=== PATIENT | female | born 1960 | race Caucasian/White ===

== ENCOUNTER 2017-03-21 19:48 | Inpatient (IN) | payer MEDICARE, MEDICAID ==
--- NOTE | 2017-03-21 20:22 | ED Physician Chart ---
ED Chief Complaint/HPI - Patient Information Date Seen:: 03/21/17 Time Seen:: 20:15 Chief Complaint:: REFUSING TO TAKE HER MEDICATIONS, AGGITATION History of Present Illness:: THIS 57 YEAR OLD FEMALE WAS SENT IN FROM [facility]. For evaluation refusal to take her medications agitation, and crying. She has not been running a fever and has had no chills or diaphoresis. She has chronic pain in the neck which was diagnosed as arthritis by MRI. Patient denies suicidal ideation. Patient has a history of hypothyroidism. She takes Synthroid. She has a history of migraine headaches but no migraine at the present time. Denies any chest pain, respiratory distress or cough. No abdominal pain, nausea, vomiting or diarrhea. She has weakness in all 4 extremities but is able to ambulate without assistance of a walker or cane. No history of rash or pain in the extremities. ED Review of Systems - Review of Systems General/Constitutional: No fever, No chills, No weight loss, Weakness, No diaphoresis, No edema, Loss of appetite Skin: No skin lesions, No rash, No bruising Head: No headache, No light-headedness Eyes: No pain, No diplopia, Other (the patient complains that she has blurry vision in both eyes that prevents her from writing. 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 ED Past Medical History - Past Medical History Past Medical History: CVA/TIA, Thyroid disorder, Other (patient states she has had sick strokes.) Social History: Non Smoker, No Alcohol, No Drug Use, Single, Care Facility ( therapeutic abortions. Patient has had lipo suction suction.. No other surgical procedures.) Family Medical History - Family Member Mother History Unknown: Yes ED Physical Exam - Physical Examination General/Constitutional: Awake, No distress, Non-toxic appearing, Ambulatory Other Gen/Cons comments:: moderately obese. Oriented 3 but confused. Head: Atraumatic Eyes: Lids, conjuctiva normal, EOMI Other Eyes comments:: The right pupil was pinpoint and the left pupil was only slightly larger. There was no increased tone of the eyeballs to palpation. EOMs intact without nystagmus. The sclera were anicteric. Skin: No rash, No skin lesions, No ecchymosis, Well hydrated, No lymphadenopathy ENMT: External ears, nose nl, Nasal exam nl, Lips, teeth, gums nl, Oropharynx nl , Tonsils nl Neck: No JVD, No mass Other Neck comments:: No surgical scars. Respiratory: Nl effort/Exclusion, Clear to Auscultation, No Wheeze/Rhonchi/Rales Cardio Vascular: RRR, No murmur, gallop, rubs, NL S1 S2 Other Cardio Vascular comments:: Good pulses in all 4 extremities. Trace pretibial edema in both lower extremities. GI: No tenderness/rebounding/guarding, No organomegaly, No hernia, Normal BS's, Nondistended, No mass/bruits, No McBurney tenderness Other GI comments:: Rectal examination deferred at my discretion. : No CVA tenderness Extremities: No tenderness or effusion, Full ROM (decreased motor strength diffusely. Trace pretibial edema in both lower extremities.) Neuro/Psych: Normal sensory exam, Normal motor strength Other Neuro/Psych comments:: Walks with wide-based gait very slowly. No focal neurologic deficit. Misc: No paraspinal tenderness Other Misc comments:: The patient has no spinal tenderness of her back but is sitting at a crooked angle and I'm unable to determine if she has scoliosis. ED Labs/Radiology/EKG Results - Lab Results Results: Laboratory Tests 03/21/17 03/21/17 03/21/17 20:15 20:15 20:28 WBC 8.1 RBC 4.02 Hgb 13.7 Hct 39.0 L MCV 97.0 MCH 34.0 H MCHC Differential 35.0 RDW 13.1 Plt Count 178 MPV 9.3 Neutrophils % 60.1 Lymphocytes % 29.3 Monocytes % 9.4 Eosinophils % 0.6 Basophils % 0.6 Sodium Potassium Chloride Carbon Dioxide Anion Gap BUN Creatinine Est GFR ( Amer) Est GFR (Non-Af Amer) BUN/Creatinine Ratio Glucose Calcium Total Bilirubin AST ALT Alkaline Phosphatase Total Protein Albumin Globulin Albumin/Globulin Ratio Urine Source CLEAN C Urine Color YELLOW Urine Clarity CLEAR Urine pH 5.5 Ur Specific [place] >= 1.030 Urine Protein NEGATIVE Urine Glucose (UA) 100 H Urine Ketones NEGATIVE Urine Blood NEGATIVE Urine Nitrate NEGATIVE Urine Bilirubin NEGATIVE Urine Urobilinogen 0.2 Ur Leukocyte Esterase NEGATIVE Urine RBC 0-1 Urine WBC 0-2 Ur Epithelial Cells RARE Urine Bacteria OCCASIONAL Urine Opiates Screen NEGATIVE Urine Methadone Screen NEGATIVE Ur Barbiturates Screen NEGATIVE Ur Tricyclics Screen NEGATIVE Ur Phencyclidine Scrn NEGATIVE Amphetamines Screen NEGATIVE U Methamphetamines Scrn NEGATIVE U Benzodiazepines Scrn NEGATIVE U Cocaine Metab Screen NEGATIVE U Cannabinoids Screen NEGATIVE 03/21/17 20:28 WBC RBC Hgb Hct MCV MCH MCHC Differential RDW Plt Count MPV Neutrophils % Lymphocytes % Monocytes % Eosinophils % Basophils % Sodium 137 Potassium 4.0 Chloride 107 Carbon Dioxide 26.5 Anion Gap 7.5 BUN 16 Creatinine 0.6 Est GFR ( Amer) > 60.0 Est GFR (Non-Af Amer) > 60.0 BUN/Creatinine Ratio 26.7 Glucose 113 H Calcium 9.5 Total Bilirubin 0.6 AST 11 L ALT 15 Alkaline Phosphatase 64 Total Protein 6.7 Albumin 4.0 Globulin 2.7 Albumin/Globulin Ratio 1.5 Urine Source Urine Color Urine Clarity Urine pH Ur Specific [place] Urine Protein Urine Glucose (UA) Urine Ketones Urine Blood Urine Nitrate Urine Bilirubin Urine Urobilinogen Ur Leukocyte Esterase Urine RBC Urine WBC Ur Epithelial Cells Urine Bacteria Urine Opiates Screen Urine Methadone Screen Ur Barbiturates Screen Ur Tricyclics Screen Ur Phencyclidine Scrn Amphetamines Screen U Methamphetamines Scrn U Benzodiazepines Scrn U Cocaine Metab Screen U Cannabinoids Screen - Radiology Results Results: SINGLE VIEW AP CXR PORTABLE: HEART IS UPPER LIMIT NORMAL. NO CHF. NO AREAS OF PULMONARY INFILTRATE OR CONSOLIDATION. NO PNEUMOTHORAX. IMPRESSION: NO ACUTE CARDIOPULMONARY FINDINGS. - EKG Interpretations EKG Time:: 20:32 Rate & Rhythm: NORMAL SINUS RHYTHM AT RATE OF 82. NO ECTOPY. [place]: AXIS IS NORMAL. Intervals: QRS duration is normal. The QT interval is normal. Comments:: Low voltage in the frontal plane no ST segment elevation or depression. Nonspecific flattening of T waves. Impression: Borderline normal EKG. ED Assessment - Assessment General Assessment: CASE MIKE: THIS 57 YEAR OLD FEMALE WAS REFERRED TO THE ER FOR EVALUATION OF BEHAVIOR DISORDER, NOT TAKING HER MEDICATIONS. SHE WAS AWAKE EMERGENCY DEPARTMENT. CALL ITAL SIGNS WERE EITHER NORMAL OR NOT CLINICLY IMPORTANT. SHE RESPONDED VERY SLOWLY AND VAGUELY TO QUESTIONS. THERE WAS NO VISIBLE OR PALPABLE HEAD TRAUMA. PUPILS WERE VERY SMALL. THE CARDIOPULMONARY EXAM WAS UNREMARKABLE. THERE WAS ON INDICATION OF SEPSIS. PT WAS ABLE TO WALK UNASSISTED BUT IT WAS VERY SLOW AND WITH WIDE BASE. LAB STUDIES SHOWED NORMAL CBC, ELECTROLYTES, MILD HYPERGLYCEMIA. THE UA WAS NEG FOR UTI. THE CXR SHOWED NO ACUTE FINDINGS. THE CASE WAS DISCUSSED WITH DR. LAGUNAS AND THE PATIENT WILL BE ADMITTED FOR FAILURE TO THRIVE. MDM DDX FOR BEHAVIORAL ABNORMALITIES: NOT SEPSIS BASED ON LAB STUDIES. NOT HYPOGLYCEMIA BASED ON SERUM GLUCOSE OF 113. NOT ELECTROLYTE ABNORMALITIES BASED ON LAB STUDIES ALL WITHIN THE NORMAL RANGE. NOT UTI BASED ON NORMAL UTI AND RENAL FUNCTION STUDIES. NOT HEPATIC ENCEPHALOPATHY BASED ON NORMAL LIVER FUNCTION STUDIES. NOT TRAUMATIC BRAIN INJURIES BASED ON PT'S HISTORY AND PHYSICAL EXAM. ED Septic Shock - . Is Septic Shock (SBP<90, OR Lactate>4 mmol\L) present?: No ED Reassessment (Disposition) - Reassessment Reassessment Condition:: Unchanged - Diagnosis Diagnosis:: FAILURE TO THRIVE, AGITATION, HYPOTHYROIDISM, GENERALIZED WEAKNESS, HISTORY OF MULTIPLE PRIOR CVA'S. - Aftercare/Follow up Instructions Aftercare/Follow-Up Instructions:: Counseled pt regarding lab results/diagnosis & need follow up - Patient Disposition Discharge/Transfer:: Acute Care w/in this hosp Accepting Physician:: Dr. Sebastian. ED Discharge Plan - Patient Disposition Admit/Discharge/Transfer: Acute Care w/in this hosp
[2017-03-21 20:37] LABS: % BASOPHILS 0.6 % (0.0-2.0); % EOSINOPHILS 0.6 % (0.0-5.0); % LYMPHOCYTES 29.3 % (20.0-50.0); % MONOCYTES 9.4 % (2.0-10.0); % NEUTROPHILS 60.1 % (40.0-80.0); HEMOGLOBIN 13.7 gm/dL (12-16); MEAN PLATELET VOLUME 9.3 fl; NEUTROPHILE ABSOLUTE 4.9 Th/cmm (1.8-8.0); PLATELET COUNT 178 Th/cmm (150-400); RED BLOOD COUNT 4.02 Mil/cmm (3.80-5.10); RED CELL DISTRIBUTION WIDTH 13.1 % (11.5-20.0); WHITE BLOOD COUNT 8.1 Th/cmm (4.8-10.8)
[2017-03-21 20:43] LABS: URINE BILIRUBIN NEGATIVE (NEGATIVE); URINE BLOOD NEGATIVE (NEGATIVE); URINE GLUCOSE (UA) 100 mg/dL (NEGATIVE); URINE KETONE NEGATIVE (NEGATIVE); URINE PH 5.5 (4.6 - 8.0); URINE PROTEIN NEGATIVE (NEGATIVE); URINE UROBILINOGEN 0.2 E.U./dL (0.2 - 1.0)
[2017-03-21 20:49] LABS: URINE BACTERIA OCCASIONAL /hpf (NONE SEEN); URINE COLOR YELLOW; URINE EPITHELIAL CELLS RARE /lpf (FEW); URINE RBC 0-1 /hpf (0-5); URINE WBC 0-2 /hpf (0-5)
[2017-03-21 20:51] LABS: AMPHETAMINE URINE NEGATIVE (NEGATIVE); BARBITURATES URINE NEGATIVE (NEGATIVE)
[2017-03-21 20:52] LABS: ALB/GLOB RATIO 1.5 (1.0-1.8); ALKALINE PHOSPHATASE 64 U/L (34-104); ANION GAP 7.5 (7.0-16.0); BILIRUBIN,TOTAL 0.6 mg/dL (0.3-1.0); BUN - UREA NITROGEN 16 mg/dL (7-25); BUN/CREATININE RATIO 26.7; CALCIUM SERUM 9.5 mg/dL (8.6-10.3); CARBON DIOXIDE 26.5 mEq/L (21.0-31.0); CHLORIDE 107 mEq/L (98-107); CREATININE - SERUM 0.6 mg/dL (0.6-1.2); GLUCOSE 113 mg/dL (70-105); SGOT 11 U/L (13-39); SGPT/ALT 15 U/L (7-52); SODIUM SERUM 137 mEq/L (136-145)
[2017-03-21 20:52] LABS: METHADONE URINE NEGATIVE (NEGATIVE)
[2017-03-21] MEDS ORDERED: Magnesium Hydroxide (MOM) 30 mL UDC PO PRN (23:38)
[2017-03-21] MEDS ORDERED: Maalox 30 mL Cup PO PRN (23:39)
[2017-03-21] MEDS ORDERED: Ipratropium Neb 0.5 mg/2.5 mL UD IH PRN (23:39)
[2017-03-21] MEDS ORDERED: Albuterol Nebulizer 2.5mg/3mL HHN PRN (23:39)
[2017-03-21] MEDS ORDERED: guaiFENesin 200 MG/10 ML UDC PO PRN (23:39)
[2017-03-22] MEDS: D5-0.9%NS 1,000 ML IV SCH ×2 (00:30→15:10)
[2017-03-22 01:38] VITALS: BP 122/62
[2017-03-22] MEDS: Levothyroxine 0.088 Mg Tab PO SCH (06:58)
--- NOTE | 2017-03-22 08:54 | Diagnostic Imaging Report ---
CHEST X-RAY: AP view INDICATION: Altered COMPARISON: None FINDINGS: Mild chronic changes are noted. There is no focal consolidation or pleural effusions The heart is normal in size. The osseous structures demonstrate no acute abnormalities. IMPRESSION: No focal airspace consolidation identified.
--- NOTE | 2017-03-22 22:05 | History & Physical ---
ADMIT DATE: 03/22/2017 CHIEF COMPLAINT: Not eating or drinking, not taking medications. HISTORY OF PRESENT ILLNESS: This is a 57-year-old female with history of schizoaffective disorder, obesity, hypothyroidism, was admitted from nursing facility secondary to not taking her medication or drinking and refusing to eat as well. The patient was evaluated in the ER and admitted for further management. PAST MEDICAL HISTORY: As mentioned in history of present illness. PAST SURGICAL HISTORY: Status post ____. ALLERGIES: FLAGYL. MEDICATIONS: The patient is on Risperdal, trazodone, Synthroid, Colace and Tylenol. FAMILY HISTORY: Denies diabetes or coronary artery disease. SOCIAL HISTORY: Nonsmoker, nondrinker, no intravenous drug use. The patient used to work in a [employer] firm, single, no children. REVIEW OF SYSTEMS: GENERAL: The patient complains of not feeling well, complains of being weak. HEENT: No blurred vision or pain. LUNGS: Negative for COPD or asthma. HEART: The patient denies hypertension or coronary artery disease. ABDOMEN: The patient with some nausea, no vomiting. Some abdominal discomfort. GENITOURINARY: The patient denies increased frequency or dysuria. NEUROLOGIC: No headache or seizure. PSYCHIATRIC: Stable. PHYSICAL EXAMINATION: VITAL SIGNS: Blood pressure 111/66, respirations 18, pulse 87, temperature is 97.5. GENERAL: Middle-aged female, mildly obese. NECK: Supple. No mass. LUNGS: Equal breath sounds, few rhonchi. HEART: Regular rate and rhythm without appreciable murmurs. ABDOMEN: Soft, globular. EXTREMITIES: Positive excoriations. NEUROLOGIC: Limited. LABORATORY DATA: WBC 8.1, hemoglobin 13, platelets 178. Sodium 137, potassium 4.0, BUN 16, creatinine 0.6, blood sugar 118, UA glucose 100. ASSESSMENT AND PLAN: Altered level of consciousness, increasing agitation, ____ hypothyroidism, obesity, schizoaffective disorder. We will continue IV hydration. We will adjust the patient's psychotropic medications and continue the Synthroid. We will check the patient's thyroid panel as well. We will refer the patient to Psychiatry. We will place her on fall precaution. Continue to monitor the patient closely. JOB# [id number]
[2017-03-23] MEDS: Levothyroxine 0.088 Mg Tab PO SCH ×2 (09:32→09:43)
--- NOTE | 2017-03-23 10:13 | Internal Medicine Prog Note ---
Internal Medicine Subjective - Subjective Service Date: 03/23/17 Patient seen and examined:: with staff Patient is:: awake, agitated, confused Per staff patient has:: no adverse event, tolerating meds Internal Medicine Objective - Results Result Diagrams: 03/21/17 20:03/21/17 20: Recent Labs: Laboratory Last Values WBC 8.1 Th/cmm (4.8-10.8) 03/21/17 20: RBC 4.02 Mil/cmm (3.80-5.10) 03/21/17 20: Hgb 13.7 gm/dL (12-16) 03/21/17 20: Hct 39.0 % (41.0-60) L 03/21/17 20: MCV 97.0 fl (81-100) 03/21/17 20: MCH 34.0 pg (27.0-31.0) H 03/21/17 20: MCHC Differential 35.0 pg (28.0-36.0) 03/21/17 20: RDW 13.1 % (11.5-20.0) 03/21/17 20: Plt Count 178 Th/cmm (150-400) 03/21/17 20: MPV 9.3 fl 03/21/17 20: Neutrophils % 60.1 % (40.0-80.0) 03/21/17 20: Lymphocytes % 29.3 % (20.0-50.0) 03/21/17 20: Monocytes % 9.4 % (2.0-10.0) 03/21/17 20: Eosinophils % 0.6 % (0.0-5.0) 03/21/17 20: Basophils % 0.6 % (0.0-2.0) 03/21/17 20: Sodium 137 mEq/L (136-145) 03/21/17 20: Potassium 4.0 mEq/L (3.5-5.1) 03/21/17 20: Chloride 107 mEq/L (98-107) 03/21/17 20: Carbon Dioxide 26.5 mEq/L (21.0-31.0) 03/21/17 20: Anion Gap 7.5 (7.0-16.0) 03/21/17 20:28 BUN 16 mg/dL (7-25) 03/21/17 20: Creatinine 0.6 mg/dL (0.6-1.2) 03/21/17 20: Est GFR ( Amer) > 60.0 ml/min (>90) 03/21/17 20: Est GFR (Non-Af Amer) > 60.0 ml/min 03/21/17 20: BUN/Creatinine Ratio 26.7 03/21/17 20: Glucose 113 mg/dL (70-105) H 03/21/17 20: POC Glucose 87 MG/DL (70 - 105) 03/22/17 05:32 Calcium 9.5 mg/dL (8.6-10.3) 03/21/17 20: Total Bilirubin 0.6 mg/dL (0.3-1.0) 03/21/17 20: AST 11 U/L (13-39) L 03/21/17 20: ALT 15 U/L (7-52) 03/21/17 20:28 Alkaline Phosphatase 64 U/L (34-104) 03/21/17 20:28 Total Protein 6.7 gm/dL (6.0-8.3) 03/21/17 20: Albumin 4.0 gm/dL (3.7-5.3) 03/21/17 20: Globulin 2.7 gm/dL 03/21/17 20: Albumin/Globulin Ratio 1.5 (1.0-1.8) 03/21/17 20:28 Urine Source CLEAN C 03/21/17 20:15 Urine Color YELLOW 03/21/17 20:15 Urine Clarity CLEAR (CLEAR) 03/21/17 20:15 Urine pH 5.5 (4.6 - 8.0) 03/21/17 20:15 Ur Specific [place] >= 1.030 (1.005-1.030) 03/21/17 20:15 Urine Protein NEGATIVE mg/dL (NEGATIVE) 03/21/17 20:15 Urine Glucose (UA) 100 mg/dL (NEGATIVE) H 03/21/17 20:15 Urine Ketones NEGATIVE mg/dL (NEGATIVE) 03/21/17 20: Urine Blood NEGATIVE (NEGATIVE) 03/21/17 20:15 Urine Nitrate NEGATIVE (NEGATIVE) 03/21/17 20:15 Urine Bilirubin NEGATIVE (NEGATIVE) 03/21/17 20:15 Urine Urobilinogen 0.2 E.U./dL (0.2 - 1.0) 03/21/17 20:15 Ur Leukocyte Esterase NEGATIVE (NEGATIVE) 03/21/17 20:15 Urine RBC 0-1 /hpf (0-5) 03/21/17 20:15 Urine WBC 0-2 /hpf (0-5) 03/21/17 20:15 Ur Epithelial Cells RARE /lpf (FEW) 03/21/17 20:15 Urine Bacteria OCCASIONAL /hpf (NONE SEEN) 03/21/17 20:15 Urine Opiates Screen NEGATIVE (NEGATIVE) 03/21/17 20:15 Urine Methadone Screen NEGATIVE (NEGATIVE) 03/21/17 20:15 Ur Barbiturates Screen NEGATIVE (NEGATIVE) 03/21/17 20:15 Ur Tricyclics Screen NEGATIVE (NEGATIVE) 03/21/17 20:15 Ur Phencyclidine Scrn NEGATIVE (NEGATIVE) 03/21/17 20:15 Amphetamines Screen NEGATIVE (NEGATIVE) 03/21/17 20:15 U Methamphetamines Scrn NEGATIVE (NEGATIVE) 03/21/17 20:15 U Benzodiazepines Scrn NEGATIVE (NEGATIVE) 03/21/17 20:15 U Cocaine Metab Screen NEGATIVE (NEGATIVE) 03/21/17 20:15 U Cannabinoids Screen NEGATIVE (NEGATIVE) 03/21/17 20:15 - Physical Exam Vitals and I&O: Vital Signs Temp 98.4 F 03/23/17 00:00 Pulse 76 03/23/17 08:04 Resp 20 03/23/17 08:04 BP 130/68 03/23/17 00:00 Pulse Ox 96 03/23/17 08:04 Intake & Output 03/22/17 03/23/17 03/23/17 18:59 06:59 18:59 Intake Total 1000 Balance 1000 Weight (lbs) 157 lb Intake: Intake, IV Amount 1000 D5-0.9%Ns 1,000 ml @ 80 1000 mls/hr IV .[id number] [facility] Rx #:[id number] Active Medications: Current Medications Acetaminophen (Tylenol) 325 mg PO Q4HR PRN PRN Reason: Pain or Fever >101 Stop: 05/20/17 23:37 Last Admin: 03/22/17 06:58 Dose: 325 mg Al Hydrox/Mg Hydrox/Simethicone (Maalox) 30 ml PO Q6H PRN PRN Reason: Dyspepsia Stop: 05/20/17 23:38 Last Admin: 03/22/17 08:15 Dose: 30 ml Albuterol Sulfate (Albuterol 2.5mg/3ml Neb Ud) 2.5 mg HHN Q2HRT PRN PRN Reason: Shortness of Breath or Wheeze Stop: 05/20/17 23:38 Docusate Sodium (Colace) 250 mg PO DAILY [facility] Stop: 05/21/17 08:59 Last Admin: 03/23/17 09:43 Dose: Not Given Guaifenesin (Robitussin) 200 mg PO Q4HR PRN PRN Reason: Cough or Congestion Stop: 05/20/17 23:38 Heparin Sodium (Porcine) (Heparin) 5,000 units SUBQ Q12HR [facility] Stop: 05/21/17 08:59 Last Admin: 03/23/17 09:42 Dose: Not Given Dextrose/Sodium Chloride (D5-0.9%Ns) 1,000 mls @ 80 mls/hr IV .[id number] [facility] Stop: 05/20/17 23:44 Last Admin: 03/22/17 15:10 Dose: 80 mls/hr Ipratropium [place] (Atrovent Neb 0.5mg/2.5ml) 0.5 mg IH Q2HRT PRN PRN Reason: Shortness of Breath or Wheeze Stop: 05/20/17 23:38 Levothyroxine Sodium (Synthroid) 0.088 mg PO QDAC [facility] Stop: 05/21/17 07:29 Last Admin: 03/23/17 09:43 Dose: Not Given Magnesium Hydroxide (Milk Of Magnesia) 30 ml PO DAILY PRN PRN Reason: Constipation Stop: 05/20/17 23:37 Nitroglycerin (Nitrostat) 0.4 mg SL Q5MIN PRN PRN Reason: Chest Pain Stop: 05/20/17 23:38 Ondansetron HCl (Zofran) 4 mg IV Q8H PRN PRN Reason: Nausea / Vomiting Stop: 05/20/17 23:38 Risperidone (Risperdal) 3 mg PO BID [facility] PRN Reason: Protocol Stop: 05/21/17 08:59 Last Admin: 03/23/17 09:42 Dose: Not Given Trazodone HCl (Desyrel) 150 mg PO HS CRISTINA Stop: 05/21/17 20:59 Last Admin: 03/22/17 21:36 Dose: Not Given General: alert HEENT: NC/AT, PERRLA Neck: Supple Lungs: CTAB Abdomen: soft, non-tender, non-distended, positive bowel sound Extremities: excoriation Neurological: alert, unable to follow command, other (confused) Internal Medicine Assmt/Plan - Assessment Assessment: ALOC INCREASE IN AGITATION HYPOTHYROIDISM OBESITY SCHIZOAFFECTIVE DISORDER - Plan Plan: continue ivf for hydration psych follow up fall precautions follow up labs in am if bed available in [facility] ok to nupur
[2017-03-23 16:07] LABS: % BASOPHILS 0.1 % (0.0-2.0); % EOSINOPHILS 0.3 % (0.0-5.0); % MONOCYTES 6.9 % (2.0-10.0); % NEUTROPHILS 75.7 % (40.0-80.0); HEMATOCRIT 41.9 % (41.0-60); MEAN CORPUSCULAR HEMOGLOBIN 32.7 pg (27.0-31.0); MEAN CORPUSCULAR HGB CONC 33.4 pg (28.0-36.0); MEAN PLATELET VOLUME 9.1 fl; NEUTROPHILE ABSOLUTE 8.8 Th/cmm (1.8-8.0); PLATELET COUNT 156 Th/cmm (150-400); RED BLOOD COUNT 4.28 Mil/cmm (3.80-5.10); RED CELL DISTRIBUTION WIDTH 13.1 % (11.5-20.0)
[2017-03-23 16:12] LABS: WHITE BLOOD COUNT 11.6 Th/cmm (4.8-10.8)
[2017-03-23 16:18] LABS: ANION GAP 8.8 (7.0-16.0); BUN - UREA NITROGEN 9 mg/dL (7-25); CALCIUM SERUM 9.5 mg/dL (8.6-10.3); CARBON DIOXIDE 28.5 mEq/L (21.0-31.0); CHLORIDE 109 mEq/L (98-107); CREATININE - SERUM 0.6 mg/dL (0.6-1.2); GLUCOSE 116 mg/dL (70-105); POTASSIUM SERUM 4.3 mEq/L (3.5-5.1); SODIUM SERUM 142 mEq/L (136-145)
[2017-03-23 17:02] LABS: TSH 0.73 uIU/ml (0.34-5.60)
== END 2017-03-23 14:14 | DRG 641 ==
LOC: ER 19:48 → MSI 22:13
PROVIDERS: ADMIT Internal Medicine; ATTEND Internal Medicine
DX: R62.7 Adult failure to thrive (principal); F25.9 Schizoaffective disorder, unspecified; R40.4 Transient alteration of awareness; R45.1 Restlessness and agitation; E03.9 Hypothyroidism, unspecified; E66.9 Obesity, unspecified; G89.29 Other chronic pain; M54.9 Dorsalgia, unspecified; M19.91 Primary osteoarthritis, unspecified site; R53.1 Weakness; F29 Unspecified psychosis not due to a substance or known physiological condition; Z68.27 Body mass index [BMI] 27.0-27.9, adult; Z86.73 Personal history of transient ischemic attack (TIA), and cerebral infarction without residual deficits
CPT/HCPCS: 36415-UA; 71010-TC; 80048-TC; 80053-TC; 80307; 81001-TC; 82140-TC; 82948-90; 84443-TC; 85025-TC; 93005; 94760; J1644; J7042; Z7610

== ENCOUNTER 2017-05-26 20:07 | Inpatient (IN) | payer MEDICAID, MEDICARE ==
--- NOTE | 2017-05-26 20:53 | ED Physician Chart ---
ED Chief Complaint/HPI - Patient Information Date Seen:: 05/26/17 Time Seen:: 20:30 Chief Complaint:: Aggressiveness History of Present Illness:: 57 yo female was brought by bls from SNF to ER for evaluation of aggressive behavior towards staff. The patient denied any thought of hurting herself or others at ER. Allergies:: Allergies Allergy/AdvReac Type Severity Reaction Status Date / Time metronidazole [From Flagyl] Allergy Verified 03/21/17 20:20 Vitals:: Vital Signs - 8 hr 05/26/17 20:15 Temp 98.2 F HR 84 RR 18 BP 132/68 O2 Sat % 95 ED Review of Systems - Review of Systems General/Constitutional: No fever, No chills, Weakness Skin: No skin lesions Head: No headache Eyes: No pain ENT: No nasal drainage Neck: No neck pain Cardio Vascular: No chest pain Pulmonary: No SOB GI: No nausea, No vomiting Musculoskeletal: No bone or joint pain ED Past Medical History - Past Medical History Past Medical History: Thyroid disorder (hypothyroidism), Other (UTI, generalized weakness) Social History: Non Smoker, No Alcohol, No Drug Use Psychiatricy History: Other (Schizoaffective) Family Medical History - Family Member Mother History Unknown: Yes ED Physical Exam - Physical Examination General/Constitutional: Awake, Alert Head: Atraumatic Eyes: PERRL Skin: No skin lesions ENMT: Nasal exam nl Neck: No nuchal rigidity Respiratory: No Wheeze/Rhonchi/Rales Cardio Vascular: RRR, No murmur, gallop, rubs, NL S1 S2 GI: No tenderness/rebounding/guarding : No discharge Extremities: normal strength in all extremities Neuro/Psych: No focal deficits ED Assessment - Assessment General Assessment: Psychosis UTI Assessment/Comments:: CBC, CMP, UA EKG Clear for geropsych admit Nitrofurantoin ED Septic Shock - . Is Septic Shock (SBP<90, OR Lactate>4 mmol\L) present?: No - <6hrs of presentation: Vital Signs: Vital Signs - 8 hr 05/26/17 20:15 Temp 98.2 F HR 84 RR 18 BP 132/68 O2 Sat % 95 ED Reassessment (Disposition) - Reassessment Reassessment Condition:: Unchanged - Patient Disposition Discharge/Transfer:: [place] w/in this hosp Admitting Medical Physician:: Tali Mcgraw ED Discharge Plan - Patient Disposition Admit/Discharge/Transfer: Other Care w/in this hosp
[2017-05-26 21:11] LABS: % BASOPHILS 0.1 % (0.0-2.0); % EOSINOPHILS 0.9 % (0.0-5.0); % LYMPHOCYTES 23.9 % (20.0-50.0); % MONOCYTES 10.8 % (2.0-10.0); % NEUTROPHILS 64.3 % (40.0-80.0); EOSINOPHILE ABSOLUTE 0.1 Th/cmm (0.1-0.4); HEMATOCRIT 39.2 % (41.0-60); HEMOGLOBIN 13.2 gm/dL (12-16); LYMPHOCYTE ABSOLUTE 2.2 Th/cmm (1.5-3.0); MEAN CELL VOLUME 98.3 fl (81-100); MEAN CORPUSCULAR HGB CONC 33.6 pg (28.0-36.0); NEUTROPHILE ABSOLUTE 5.8 Th/cmm (1.8-8.0); PLATELET COUNT 171 Th/cmm (150-400); RED BLOOD COUNT 3.99 Mil/cmm (3.80-5.10); RED CELL DISTRIBUTION WIDTH 13.2 % (11.5-20.0)
[2017-05-26 21:12] LABS: WHITE BLOOD COUNT 9.1 Th/cmm (4.8-10.8)
[2017-05-26 21:17] LABS: ANION GAP 11.7 (7.0-16.0); BUN - UREA NITROGEN 10 mg/dL (7-25); CALCIUM SERUM 8.7 mg/dL (8.6-10.3); CARBON DIOXIDE 21.2 mEq/L (21.0-31.0); CHLORIDE 110 mEq/L (98-107); CREATININE - SERUM 0.6 mg/dL (0.6-1.2); GFR AFRICAN-AMERICAN > 60.0 ml/min (>90); GFR NON AFRICAN-AMERICAN > 60.0 ml/min; GLUCOSE 109 mg/dL (70-105); POTASSIUM SERUM 3.9 mEq/L (3.5-5.1); SODIUM SERUM 139 mEq/L (136-145)
[2017-05-26 22:27] VITALS: BP 123/65
[2017-05-26] MEDS ORDERED: Maalox 30 mL Cup PO PRN (22:27)
[2017-05-27 00:15] LABS: URINE MICROSCOPIC INDICATED? YES; URINE SOURCE RANDOM
[2017-05-27 00:18] LABS: URINE BILIRUBIN NEGATIVE (NEGATIVE); URINE BLOOD NEGATIVE (NEGATIVE); URINE GLUCOSE (UA) NEGATIVE (NEGATIVE); URINE KETONE TRACE mg/dL (NEGATIVE); URINE LEUKOCYTE ESTERASE SMALL (NEGATIVE); URINE NITRATE NEGATIVE (NEGATIVE); URINE PROTEIN NEGATIVE (NEGATIVE); URINE UROBILINOGEN 0.2 E.U./dL (0.2 - 1.0)
[2017-05-27 00:19] LABS: URINE CLARITY HAZY (CLEAR); URINE COLOR YELLOW
[2017-05-27 00:21] LABS: URINE RBC 0-2 /hpf (0-5)
[2017-05-27 00:22] LABS: URINE BACTERIA MODERATE /hpf (NONE SEEN); URINE EPITHELIAL CELLS MODERATE /lpf (FEW)
--- NOTE | 2017-05-27 09:49 | Psychosocial Evaluation ---
DATE OF SERVICE: 05/26/2017 IDENTIFYING INFORMATION: The patient is a 57-year-old female. CHIEF COMPLAINT: "They are trying to kill me." HISTORY OF PRESENT ILLNESS: This is a well-known case to me as I have seen her and I have been following her at [facility]. She has diagnosed with schizoaffective disorder. The patient also has a history of being conserved. Apparently, she has been paranoid. She has been acting psychotic. She was crying uncontrollably and I talked to her, though she was eating, unable to participate in a meaningful conversation, feeling fearful and scared and asked the staff to move her to a room closer to the nurses'. The patient was unable to answer questions regarding sleep and appetite. She has been on Risperdal 2 mg twice a day and Depakote 250 mg twice a day and also she is on Ativan and trazodone. PAST PSYCHIATRIC HISTORY: Multiple prior admissions to different facility and for this [facility] and [facility] for psychotic symptoms. The patient was actually being conserved in the past, but that conservatorship and it was not renewed. MEDICAL HISTORY: Deferred to the medical doctor. MEDICATIONS: The patient is allergic to metronidazole. FAMILY AND SOCIAL HISTORY: The patient has been staying at [facility]. Unable to give me further information. She reports she has no children. She is single, never . She was unable to give me any information. Her old chart was not available at the moment when I was dictating this. MENTAL STATUS EXAMINATION: The patient was appropriately dressed, not very well groomed. She was crying, though she was eating at the same time. She was able to tell me the date, but she was not sure of the exact year. She was very paranoid. She denies any auditory or visual hallucination. She denies any intent to harm anyone. She denies any intent to harm herself, but she was very psychotic and paranoid. I was unable to test her memory because of her psychosis and crying. Unable to concentrate enough to carry on a conversation. She denies that she plans to harm herself or anybody. I am not sure how is her sleep or appetite. She did not tell me that she was feeding herself. Her insight and judgment is impaired. IMPRESSION: AXIS I: Schizoaffective disorder, bipolar type. MEDICAL DIAGNOSES: We will defer to the medical doctor. Her assets, she is accepting treatment. Negative poor coping skills. INITIAL TREATMENT PLAN: The patient will be started back on her medication. I will do group therapy, milieu therapy, and individual therapy. ESTIMATED LENGTH OF STAY: 3-7 days. DISCHARGE CRITERIA: Decreasing psychosis, agitation, paranoia. After discharge, outpatient treatment. JOB# [id number]
[2017-05-27] MEDS ORDERED: Maalox 30 mL Cup PO PRN (13:15)
[2017-05-27] MEDS: Hydrocodone/APAP 5mg/325mg Tab PO PRN ×2 (14:53→21:40)
--- NOTE | 2017-05-27 15:17 | Internal Medicine Prog Note ---
Internal Medicine Subjective - Subjective Service Date: 05/27/17 ([facility] dictated [id number]) Internal Medicine Objective - Results Result Diagrams: 05/26/17 20:51 05/26/17 20:51 Recent Labs: Laboratory Last Values WBC 9.1 Th/cmm (4.8-10.8) D 05/26/17 20:51 RBC 3.99 Mil/cmm (3.80-5.10) 05/26/17 20:51 Hgb 13.2 gm/dL (12-16) 05/26/17 20:51 Hct 39.2 % (41.0-60) L 05/26/17 20:51 MCV 98.3 fl (81-100) 05/26/17 20:51 MCH 33.0 pg (27.0-31.0) H 05/26/17 20:51 MCHC Differential 33.6 pg (28.0-36.0) 05/26/17 20:51 RDW 13.2 % (11.5-20.0) 05/26/17 20:51 Plt Count 171 Th/cmm (150-400) 05/26/17 20:51 MPV 9.0 fl 05/26/17 20:51 Neutrophils % 64.3 % (40.0-80.0) 05/26/17 20:51 Lymphocytes % 23.9 % (20.0-50.0) 05/26/17 20:51 Monocytes % 10.8 % (2.0-10.0) H 05/26/17 20:51 Eosinophils % 0.9 % (0.0-5.0) 05/26/17 20:51 Basophils % 0.1 % (0.0-2.0) 05/26/17 20:51 Sodium 139 mEq/L (136-145) 05/26/17 20:51 Potassium 3.9 mEq/L (3.5-5.1) 05/26/17 20:51 Chloride 110 mEq/L (98-107) H 05/26/17 20:51 Carbon Dioxide 21.2 mEq/L (21.0-31.0) 05/26/17 20:51 Anion Gap 11.7 (7.0-16.0) 05/26/17 20:51 BUN 10 mg/dL (7-25) 05/26/17 20:51 Creatinine 0.6 mg/dL (0.6-1.2) 05/26/17 20:51 Est GFR ( Amer) > 60.0 ml/min (>90) 05/26/17 20:51 Est GFR (Non-Af Amer) > 60.0 ml/min 05/26/17 20:51 BUN/Creatinine Ratio 16.7 05/26/17 20:51 Glucose 109 mg/dL (70-105) H 05/26/17 20:51 Calcium 8.7 mg/dL (8.6-10.3) 05/26/17 20:51 TSH 3.85 uIU/ml (0.34-5.60) 05/26/17 20:51 Urine Source RANDOM 05/26/17 23:55 Urine Color YELLOW 05/26/17 23:55 Urine Clarity HAZY (CLEAR) 05/26/17 23:55 Urine pH 7.0 (4.6 - 8.0) 05/26/17 23:55 Ur Specific [place] 1.020 (1.005-1.030) 05/26/17 23:55 Urine Protein NEGATIVE mg/dL (NEGATIVE) 05/26/17 23:55 Urine Glucose (UA) NEGATIVE mg/dL (NEGATIVE) 05/26/17 23:55 Urine Ketones TRACE mg/dL (NEGATIVE) 05/26/17 23:55 Urine Blood NEGATIVE (NEGATIVE) 05/26/17 23:55 Urine Nitrate NEGATIVE (NEGATIVE) 05/26/17 23:55 Urine Bilirubin NEGATIVE (NEGATIVE) 05/26/17 23:55 Urine Urobilinogen 0.2 E.U./dL (0.2 - 1.0) 05/26/17 23:55 Ur Leukocyte Esterase SMALL (NEGATIVE) H 05/26/17 23:55 Urine RBC 0-2 /hpf (0-5) 05/26/17 23:55 Urine WBC 10-25 /hpf (0-5) H 05/26/17 23:55 Ur Epithelial Cells MODERATE /lpf (FEW) 05/26/17 23:55 Urine Bacteria MODERATE /hpf (NONE SEEN) H 05/26/17 23:55 Valproic Acid 10.1 ug/mL (50.0-100.0) L 05/26/17 20:51 - Physical Exam Vitals and I&O: Vital Signs Temp 98.9 F 05/27/17 14:30 Pulse 71 05/27/17 14:30 Resp 20 05/27/17 14:30 BP 100/69 05/27/17 14:30 Pulse Ox 93 05/27/17 14:30 Active Medications: Current Medications Acetaminophen (Tylenol) 650 mg PO Q4HR PRN PRN Reason: Pain or Fever >101 Stop: 07/26/17 13:14 Acetaminophen/Hydrocodone Bitart ([place] 5mg/325mg) 1 tab PO Q4H PRN PRN Reason: Pain (Severe) Stop: 07/26/17 13:36 Last Admin: 05/27/17 14:53 Dose: 1 tab Al Hydrox/Mg Hydrox/Simethicone (Maalox) 30 ml PO Q4HR PRN PRN Reason: GI DISTRESS Stop: 07/26/17 13:14 Calcium/Vitamin D (Oscal W/Vitamin D) 1 tab PO BID [facility] Stop: 07/26/17 16:59 Divalproex Sodium (Depakote Er) 250 mg PO Q12HR [facility] PRN Reason: Protocol Stop: 07/26/17 08:59 Last Admin: 05/27/17 08:59 Dose: 250 mg Docusate Sodium (Colace) 250 mg PO DAILY [facility] Stop: 07/27/17 08:59 Levothyroxine Sodium (Synthroid) 0.088 mg PO QDAC [facility] Stop: 07/27/17 07:29 Lorazepam (Ativan) 0.5 mg PO Q6HR PRN; Protocol PRN Reason: Anxiety Stop: 07/26/17 06:00 Last Admin: 05/27/17 09:00 Dose: 0.5 mg Magnesium Hydroxide (Milk Of Magnesia) 30 ml PO DAILY PRN PRN Reason: Constipation Stop: 07/26/17 13:14 Naproxen (Naprosyn) 500 mg PO TID PRN PRN Reason: Pain (Moderate) Stop: 07/26/17 13:14 Risperidone (Risperdal) 3 mg PO BID [facility] PRN Reason: Protocol Stop: 07/26/17 08:59 Last Admin: 05/27/17 09:00 Dose: 3 mg Trazodone HCl (Desyrel) 150 mg PO HS [facility]INA PRN Reason: Protocol Stop: 07/26/17 20:59 Zolpidem Tartrate (Ambien) 5 mg PO HS PRN PRN Reason: Insomnia Stop: 07/25/17 22:26
--- NOTE | 2017-05-27 15:39 | Diagnostic Imaging Report ---
Bilateral hips with pelvis (3 views) HISTORY: Pain The right hip demonstrates mild to moderate joint space narrowing. The right femoral head exhibits a normal contour. No focal lesions. No fractures. The left hip also demonstrates mild to moderate joint space narrowing. The femoral head exhibits a normal contour. No focal lesions. No fractures. Degenerative changes noted in lower lumbar spine. Stool-filled nondilated large bowel is seen. IMPRESSION: 1. Mild degenerative changes about the hips 2. Mild to moderate degenerative changes in the visualized lumbar spine 3. No acute abnormalities
[2017-05-27] MEDS: Calcium Carb/Vit D 500 mg/200 U Tab PO SCH (16:29)
--- NOTE | 2017-05-27 18:46 | History & Physical ---
ADMIT DATE: 05/27/2017 CHIEF COMPLAINT: Aggressiveness. HISTORY OF PRESENT ILLNESS: This is a 57-year-old female who is a half-way resident who is now admitted to the Geropsych Unit due to aggressive behavior towards nursing staff. For further management the patient is now admitted to the Geropsych Unit. PAST MEDICAL HISTORY: Schizoaffective disorder, obesity and hypothyroidism. PAST SURGICAL HISTORY: Difficult. ALLERGIES: FLAGYL. MEDICATIONS: Risperdal, trazodone, Synthroid, Colace and Tylenol. FAMILY HISTORY: Noncontributory. SOCIAL HISTORY: The patient is a half-way resident. REVIEW OF SYSTEMS: GENERAL: Denies any fevers and chills. CARDIOVASCULAR: Denies chest pain. RESPIRATORY: Denies shortness of breath. GASTROINTESTINAL: Denies nausea, vomiting or abdominal pain. GENITOURINARY: Denies increased frequency or dysuria. NEUROLOGIC: No headaches, seizures or syncope. PSYCHIATRIC: As stated above. EXTREMITIES: No leg pain or swelling. All other systems are reviewed and are negative. PHYSICAL EXAMINATION: GENERAL: Elderly female, awake, alert, in no apparent distress. VITAL SIGNS: Temperature 99.9, heart rate 71, blood pressure 100/69, respirations 20 and O2 93%. HEENT: Head normocephalic and atraumatic. NECK: Supple. No mass. LUNGS: Clear bilaterally. HEART: Regular rhythm. ABDOMEN: Soft and nontender. LABORATORY DATA: WBC 9.1, H and H 13.2 and 39.2 and platelet of 171. Sodium 139, potassium 3.9, chloride 110, BUN 10 and creatinine 0.6. Urinalysis: The patient is positive for UTI. ASSESSMENT: Acute urinary tract infection, schizoaffective disorder, obesity and hypothyroidism. PLAN: We will continue the patient on Macrobid for 7 days. We will encourage patient for fluids. Continue patient on same half-way medications. We will continue to follow this patient. JOB# [id number]
[2017-05-27] MEDS ORDERED: Non-Formulary Item 1 EA (Trazodone Hcl [Trazodone Hcl] 150 MG) PO SCH (21:00)
[2017-05-28] MEDS: Hydrocodone/APAP 5mg/325mg Tab PO PRN ×3 (06:09→20:55)
[2017-05-28] MEDS: Levothyroxine 0.088 Mg Tab PO SCH (07:21)
[2017-05-28] MEDS: Calcium Carb/Vit D 500 mg/200 U Tab PO SCH ×2 (08:59→16:39)
[2017-05-28] MEDS: Multivitamin w/ Minerals Tab PO SCH (08:59)
--- NOTE | 2017-05-28 13:23 | Internal Medicine Prog Note ---
Internal Medicine Subjective - Subjective Service Date: 05/28/17 Patient seen and examined:: with staff Patient is:: awake, verbal Per staff patient has:: tolerating meds Internal Medicine Objective - Results Result Diagrams: 05/26/17 20:51 05/26/17 20:51 Recent Labs: Laboratory Last Values WBC 9.1 Th/cmm (4.8-10.8) D 05/26/17 20:51 RBC 3.99 Mil/cmm (3.80-5.10) 05/26/17 20:51 Hgb 13.2 gm/dL (12-16) 05/26/17 20:51 Hct 39.2 % (41.0-60) L 05/26/17 20:51 MCV 98.3 fl (81-100) 05/26/17 20:51 MCH 33.0 pg (27.0-31.0) H 05/26/17 20:51 MCHC Differential 33.6 pg (28.0-36.0) 05/26/17 20:51 RDW 13.2 % (11.5-20.0) 05/26/17 20:51 Plt Count 171 Th/cmm (150-400) 05/26/17 20:51 MPV 9.0 fl 05/26/17 20:51 Neutrophils % 64.3 % (40.0-80.0) 05/26/17 20:51 Lymphocytes % 23.9 % (20.0-50.0) 05/26/17 20:51 Monocytes % 10.8 % (2.0-10.0) H 05/26/17 20:51 Eosinophils % 0.9 % (0.0-5.0) 05/26/17 20:51 Basophils % 0.1 % (0.0-2.0) 05/26/17 20:51 Sodium 139 mEq/L (136-145) 05/26/17 20:51 Potassium 3.9 mEq/L (3.5-5.1) 05/26/17 20:51 Chloride 110 mEq/L (98-107) H 05/26/17 20:51 Carbon Dioxide 21.2 mEq/L (21.0-31.0) 05/26/17 20:51 Anion Gap 11.7 (7.0-16.0) 05/26/17 20:51 BUN 10 mg/dL (7-25) 05/26/17 20:51 Creatinine 0.6 mg/dL (0.6-1.2) 05/26/17 20:51 Est GFR ( Amer) > 60.0 ml/min (>90) 05/26/17 20:51 Est GFR (Non-Af Amer) > 60.0 ml/min 05/26/17 20:51 BUN/Creatinine Ratio 16.7 05/26/17 20:51 Glucose 109 mg/dL (70-105) H 05/26/17 20:51 Calcium 8.7 mg/dL (8.6-10.3) 05/26/17 20:51 TSH 3.85 uIU/ml (0.34-5.60) 05/26/17 20:51 Urine Source RANDOM 05/26/17 23:55 Urine Color YELLOW 05/26/17 23:55 Urine Clarity HAZY (CLEAR) 05/26/17 23:55 Urine pH 7.0 (4.6 - 8.0) 05/26/17 23:55 Ur Specific [place] 1.020 (1.005-1.030) 05/26/17 23:55 Urine Protein NEGATIVE mg/dL (NEGATIVE) 05/26/17 23:55 Urine Glucose (UA) NEGATIVE mg/dL (NEGATIVE) 05/26/17 23:55 Urine Ketones TRACE mg/dL (NEGATIVE) 05/26/17 23:55 Urine Blood NEGATIVE (NEGATIVE) 05/26/17 23:55 Urine Nitrate NEGATIVE (NEGATIVE) 05/26/17 23:55 Urine Bilirubin NEGATIVE (NEGATIVE) 05/26/17 23:55 Urine Urobilinogen 0.2 E.U./dL (0.2 - 1.0) 05/26/17 23:55 Ur Leukocyte Esterase SMALL (NEGATIVE) H 05/26/17 23:55 Urine RBC 0-2 /hpf (0-5) 05/26/17 23:55 Urine WBC 10-25 /hpf (0-5) H 05/26/17 23:55 Ur Epithelial Cells MODERATE /lpf (FEW) 05/26/17 23:55 Urine Bacteria MODERATE /hpf (NONE SEEN) H 05/26/17 23:55 Valproic Acid 10.1 ug/mL (50.0-100.0) L 05/26/17 20:51 RPR NONREACTIVE (NONREACTIVE) 05/26/17 20:51 - Physical Exam Vitals and I&O: Vital Signs Temp 97.9 F 05/28/17 05:28 Pulse 66 05/28/17 05:28 Resp 20 05/28/17 05:28 BP 100/65 05/28/17 05:28 Pulse Ox 97 05/28/17 05:28 Intake & Output 05/27/17 05/28/17 05/28/17 18:59 06:59 18:59 Intake Total 580 Balance 580 Intake: Oral 580 Other: # Voids 2 Active Medications: Current Medications Acetaminophen (Tylenol) 650 mg PO Q4HR PRN PRN Reason: Pain or Fever >101 Stop: 07/26/17 13:14 Last Admin: 05/28/17 01:41 Dose: 650 mg Acetaminophen/Hydrocodone Bitart ([place] 5mg/325mg) 1 tab PO Q4H PRN PRN Reason: Pain (Severe) Stop: 07/26/17 13:36 Last Admin: 05/28/17 06:09 Dose: 1 tab Al Hydrox/Mg Hydrox/Simethicone (Maalox) 30 ml PO Q4HR PRN PRN Reason: GI DISTRESS Stop: 07/26/17 13:14 Calcium/Vitamin D (Oscal W/Vitamin D) 1 tab PO BID [facility] Stop: 07/26/17 16:59 Last Admin: 05/28/17 08:59 Dose: 1 tab Divalproex Sodium (Depakote Er) 250 mg PO Q12HR [facility] PRN Reason: Protocol Stop: 07/26/17 08:59 Last Admin: 05/28/17 09:00 Dose: 250 mg Docusate Sodium (Colace) 250 mg PO DAILY [facility] Stop: 07/27/17 08:59 Last Admin: 05/28/17 08:59 Dose: 250 mg Levothyroxine Sodium (Synthroid) 0.088 mg PO QDAC [facility] Stop: 07/27/17 07:29 Last Admin: 05/28/17 07:21 Dose: Not Given Lorazepam (Ativan) 0.5 mg PO Q6HR PRN; Protocol PRN Reason: Anxiety Stop: 07/26/17 06:00 Last Admin: 05/27/17 22:27 Dose: 0.5 mg Magnesium Hydroxide (Milk Of Magnesia) 30 ml PO DAILY PRN PRN Reason: Constipation Stop: 07/26/17 13:14 Naproxen (Naprosyn) 500 mg PO TID PRN PRN Reason: Pain (Moderate) Stop: 07/26/17 13:14 Risperidone (Risperdal) 3 mg PO BID [facility] PRN Reason: Protocol Stop: 07/26/17 08:59 Last Admin: 05/28/17 09:00 Dose: 3 mg Trazodone HCl (Desyrel) 150 mg PO HS [facility] PRN Reason: Protocol Stop: 07/26/17 20:59 Last Admin: 05/27/17 20:28 Dose: 150 mg Trimethoprim/Sulfamethoxazole (Bactrim Ds) 1 tab PO BID [facility] Stop: 06/02/17 16:59 Zolpidem Tartrate (Ambien) 5 mg PO HS PRN PRN Reason: Insomnia Stop: 07/25/17 22:26 Last Admin: 05/28/17 01:41 Dose: 5 mg General: alert HEENT: NC/AT, PERRLA Neck: Supple Lungs: CTAB Cardiovascular: RRR, Normal S1, Normal S2 Abdomen: soft, non-tender, non-distended, positive bowel sound Neurological: alert Internal Medicine Assmt/Plan - Assessment Assessment: acute uti schizoaffective disorder obesity hypothyroidism - Plan Plan: continue po abx fall precautions continue current plan of care
[2017-05-28] MEDS: Sulfamethoxazole/TMP 800/160mg Tab PO SCH (16:40)
[2017-05-29] MEDS: Levothyroxine 0.088 Mg Tab PO SCH (06:43)
[2017-05-29] MEDS: Sulfamethoxazole/TMP 800/160mg Tab PO SCH ×2 (08:59→16:38)
[2017-05-29] MEDS: Calcium Carb/Vit D 500 mg/200 U Tab PO SCH ×2 (08:59→16:38)
[2017-05-29] MEDS: Multivitamin w/ Minerals Tab PO SCH (08:59)
[2017-05-29] MEDS: Hydrocodone/APAP 5mg/325mg Tab PO PRN ×3 (09:28→23:08)
--- NOTE | 2017-05-29 15:19 | Internal Medicine Prog Note ---
Internal Medicine Subjective - Subjective Patient seen and examined:: with staff Patient is:: awake, verbal Per staff patient has:: tolerating meds Internal Medicine Objective - Results Result Diagrams: 05/26/17 20:51 05/26/17 20:51 Recent Labs: Laboratory Last Values WBC 9.1 Th/cmm (4.8-10.8) D 05/26/17 20:51 RBC 3.99 Mil/cmm (3.80-5.10) 05/26/17 20:51 Hgb 13.2 gm/dL (12-16) 05/26/17 20:51 Hct 39.2 % (41.0-60) L 05/26/17 20:51 MCV 98.3 fl (81-100) 05/26/17 20:51 MCH 33.0 pg (27.0-31.0) H 05/26/17 20:51 MCHC Differential 33.6 pg (28.0-36.0) 05/26/17 20:51 RDW 13.2 % (11.5-20.0) 05/26/17 20:51 Plt Count 171 Th/cmm (150-400) 05/26/17 20:51 MPV 9.0 fl 05/26/17 20:51 Neutrophils % 64.3 % (40.0-80.0) 05/26/17 20:51 Lymphocytes % 23.9 % (20.0-50.0) 05/26/17 20:51 Monocytes % 10.8 % (2.0-10.0) H 05/26/17 20:51 Eosinophils % 0.9 % (0.0-5.0) 05/26/17 20:51 Basophils % 0.1 % (0.0-2.0) 05/26/17 20:51 Sodium 139 mEq/L (136-145) 05/26/17 20:51 Potassium 3.9 mEq/L (3.5-5.1) 05/26/17 20:51 Chloride 110 mEq/L (98-107) H 05/26/17 20:51 Carbon Dioxide 21.2 mEq/L (21.0-31.0) 05/26/17 20:51 Anion Gap 11.7 (7.0-16.0) 05/26/17 20:51 BUN 10 mg/dL (7-25) 05/26/17 20:51 Creatinine 0.6 mg/dL (0.6-1.2) 05/26/17 20:51 Est GFR ( Amer) > 60.0 ml/min (>90) 05/26/17 20:51 Est GFR (Non-Af Amer) > 60.0 ml/min 05/26/17 20:51 BUN/Creatinine Ratio 16.7 05/26/17 20:51 Glucose 109 mg/dL (70-105) H 05/26/17 20:51 Calcium 8.7 mg/dL (8.6-10.3) 05/26/17 20:51 TSH 3.85 uIU/ml (0.34-5.60) 05/26/17 20:51 Urine Source RANDOM 05/26/17 23:55 Urine Color YELLOW 05/26/17 23:55 Urine Clarity HAZY (CLEAR) 05/26/17 23:55 Urine pH 7.0 (4.6 - 8.0) 05/26/17 23:55 Ur Specific [place] 1.020 (1.005-1.030) 05/26/17 23:55 Urine Protein NEGATIVE mg/dL (NEGATIVE) 05/26/17 23:55 Urine Glucose (UA) NEGATIVE mg/dL (NEGATIVE) 05/26/17 23:55 Urine Ketones TRACE mg/dL (NEGATIVE) 05/26/17 23:55 Urine Blood NEGATIVE (NEGATIVE) 05/26/17 23:55 Urine Nitrate NEGATIVE (NEGATIVE) 05/26/17 23:55 Urine Bilirubin NEGATIVE (NEGATIVE) 05/26/17 23:55 Urine Urobilinogen 0.2 E.U./dL (0.2 - 1.0) 05/26/17 23:55 Ur Leukocyte Esterase SMALL (NEGATIVE) H 05/26/17 23:55 Urine RBC 0-2 /hpf (0-5) 05/26/17 23:55 Urine WBC 10-25 /hpf (0-5) H 05/26/17 23:55 Ur Epithelial Cells MODERATE /lpf (FEW) 05/26/17 23:55 Urine Bacteria MODERATE /hpf (NONE SEEN) H 05/26/17 23:55 Valproic Acid 10.1 ug/mL (50.0-100.0) L 01/30/18 20:51 RPR NONREACTIVE (NONREACTIVE) 05/26/17 20:51 - Physical Exam Vitals and I&O: Vital Signs Temp 97.6 F 05/29/17 06:16 Pulse 74 05/29/17 06:16 Resp 19 05/29/17 06:16 BP 111/59 05/29/17 06:16 Pulse Ox 97 05/29/17 06:16 Intake & Output 05/28/17 05/29/17 05/29/17 18:59 06:59 18:59 Intake Total 120 Balance 120 Intake: Oral 120 Other: # Voids 3 Active Medications: Current Medications Acetaminophen (Tylenol) 650 mg PO Q4HR PRN PRN Reason: Pain or Fever >101 Stop: 07/26/17 13:14 Last Admin: 05/28/17 01:41 Dose: 650 mg Acetaminophen/Hydrocodone Bitart ([place] 5mg/325mg) 1 tab PO Q4H PRN PRN Reason: Pain (Severe) Stop: 07/26/17 13:36 Last Admin: 05/29/17 09:28 Dose: 1 tab Al Hydrox/Mg Hydrox/Simethicone (Maalox) 30 ml PO Q4HR PRN PRN Reason: GI DISTRESS Stop: 07/26/17 13:14 Calcium/Vitamin D (Oscal W/Vitamin D) 1 tab PO BID [facility] Stop: 07/26/17 16:59 Last Admin: 05/29/17 08:59 Dose: 1 tab Divalproex Sodium (Depakote Er) 250 mg PO Q12HR [facility]INA PRN Reason: Protocol Stop: 07/26/17 08:59 Last Admin: 05/29/17 08:59 Dose: 250 mg Docusate Sodium (Colace) 250 mg PO DAILY [facility] Stop: 07/27/17 08:59 Last Admin: 05/29/17 08:59 Dose: 250 mg Levothyroxine Sodium (Synthroid) 0.088 mg PO QDAC [facility] Stop: 07/27/17 07:29 Last Admin: 05/29/17 06:43 Dose: Not Given Lorazepam (Ativan) 0.5 mg PO Q6HR PRN; Protocol PRN Reason: Anxiety Stop: 07/26/17 06:00 Last Admin: 05/27/17 22:27 Dose: 0.5 mg Magnesium Hydroxide (Milk Of Magnesia) 30 ml PO DAILY PRN PRN Reason: Constipation Stop: 07/26/17 13:14 Naproxen (Naprosyn) 500 mg PO TID PRN PRN Reason: Pain (Moderate) Stop: 07/26/17 13:14 Risperidone (Risperdal) 3 mg PO BID [facility] PRN Reason: Protocol Stop: 07/26/17 08:59 Last Admin: 05/29/17 08:59 Dose: 3 mg Trazodone HCl (Desyrel) 150 mg PO HS [facility] PRN Reason: Protocol Stop: 07/26/17 20:59 Last Admin: 05/28/17 20:55 Dose: 150 mg Trimethoprim/Sulfamethoxazole (Bactrim Ds) 1 tab PO BID [facility] Stop: 06/02/17 16:59 Last Admin: 05/29/17 08:59 Dose: 1 tab Zolpidem Tartrate (Ambien) 5 mg PO HS PRN PRN Reason: Insomnia Stop: 07/25/17 22:26 Last Admin: 05/28/17 01:41 Dose: 5 mg General: alert HEENT: NC/AT, PERRLA Neck: Supple Lungs: CTAB Cardiovascular: RRR, Normal S1, Normal S2 Abdomen: soft, non-tender, non-distended, positive bowel sound Neurological: alert Internal Medicine Assmt/Plan - Assessment Assessment: acute uti schizoaffective disorder obesity hypothyroidism - Plan Plan: continue po abx fall precautions continue current plan of care
--- NOTE | 2017-05-30 01:17 | Progress Notes ---
DATE: 05/28/2017 SUBJECTIVE: Chart reviewed and the patient interviewed. Also, discussed the patient's condition with the staff and reviewed records and labs. The patient continued to be anxious and she is focusing on pain medications. The patient has been calling for the nurse to give her more pain medications. She also is still suspicious and paranoid thinking that the people are going to kill her. She also is still having mood swings and gets agitated and irritable easily. Otherwise, the patient is cooperative and compliant with taking her medications with no side effects of medications. ASSESSMENT: The patient is still agitated and focused on pain medications. TREATMENT PLAN: We will continue Risperdal in a dose of 3 mg twice a day as well as Depakote 250 mg twice a day and the trazodone 150 mg at bedtime. Also, continue to work on monitoring her behavior and her agitation and continue to follow up closely. JOB# [id number]
[2017-05-30] MEDS: Hydrocodone/APAP 5mg/325mg Tab PO PRN ×2 (06:43→15:38)
[2017-05-30] MEDS: Levothyroxine 0.088 Mg Tab PO SCH (06:44)
[2017-05-30] MEDS: Multivitamin w/ Minerals Tab PO SCH (08:54)
[2017-05-30] MEDS: Sulfamethoxazole/TMP 800/160mg Tab PO SCH ×2 (08:56→17:09)
[2017-05-30] MEDS: Calcium Carb/Vit D 500 mg/200 U Tab PO SCH ×2 (08:57→17:11)
--- NOTE | 2017-05-30 16:36 | Progress Notes ---
DATE: 05/29/2017 SUBJECTIVE: Chart reviewed and the patient interviewed. Also discussed the patient's condition with the staff and reviewed records and labs. The patient is still yelling and screaming and is still severely agitated and in irritable mood. The patient also is still having difficulty following directions and the patient is focused on pain medications and asking for more pain medications. She also is still suspicious and paranoid. Otherwise, the patient is compliant with taking her medications with no side effects of medications. ASSESSMENT: The patient is still psychotic and agitated. TREATMENT PLAN: We will continue Depakote, Risperdal and trazodone same dose. Also, continue to monitor her behavior closely and continue adjusting psychotropic medications and we will follow up closely. [facility]# [id number]
--- NOTE | 2017-05-30 17:09 | Internal Medicine Prog Note ---
Internal Medicine Subjective - Subjective Service Date: 05/30/17 Patient seen and examined:: with staff Patient is:: awake, verbal Per staff patient has:: tolerating meds Internal Medicine Objective - Results Result Diagrams: 05/26/17 20:51 05/26/17 20:51 Recent Labs: Laboratory Last Values WBC 9.1 Th/cmm (4.8-10.8) D 05/26/17 20:51 RBC 3.99 Mil/cmm (3.80-5.10) 05/26/17 20:51 Hgb 13.2 gm/dL (12-16) 05/26/17 20:51 Hct 39.2 % (41.0-60) L 05/26/17 20:51 MCV 98.3 fl (81-100) 05/26/17 20:51 MCH 33.0 pg (27.0-31.0) H 05/26/17 20:51 MCHC Differential 33.6 pg (28.0-36.0) 05/26/17 20:51 RDW 13.2 % (11.5-20.0) 05/26/17 20:51 Plt Count 171 Th/cmm (150-400) 05/26/17 20:51 MPV 9.0 fl 05/26/17 20:51 Neutrophils % 64.3 % (40.0-80.0) 05/26/17 20:51 Lymphocytes % 23.9 % (20.0-50.0) 05/26/17 20:51 Monocytes % 10.8 % (2.0-10.0) H 05/26/17 20:51 Eosinophils % 0.9 % (0.0-5.0) 05/26/17 20:51 Basophils % 0.1 % (0.0-2.0) 05/26/17 20:51 Sodium 139 mEq/L (136-145) 05/26/17 20:51 Potassium 3.9 mEq/L (3.5-5.1) 05/26/17 20:51 Chloride 110 mEq/L (98-107) H 05/26/17 20:51 Carbon Dioxide 21.2 mEq/L (21.0-31.0) 05/26/17 20:51 Anion Gap 11.7 (7.0-16.0) 05/26/17 20:51 BUN 10 mg/dL (7-25) 05/26/17 20:51 Creatinine 0.6 mg/dL (0.6-1.2) 05/26/17 20:51 Est GFR ( Amer) > 60.0 ml/min (>90) 05/26/17 20:51 Est GFR (Non-Af Amer) > 60.0 ml/min 05/26/17 20:51 BUN/Creatinine Ratio 16.7 05/26/17 20:51 Glucose 109 mg/dL (70-105) H 05/26/17 20:51 Calcium 8.7 mg/dL (8.6-10.3) 05/26/17 20:51 TSH 3.85 uIU/ml (0.34-5.60) 05/26/17 20:51 Urine Source RANDOM 05/26/17 23:55 Urine Color YELLOW 05/26/17 23:55 Urine Clarity HAZY (CLEAR) 05/26/17 23:55 Urine pH 7.0 (4.6 - 8.0) 05/26/17 23:55 Ur Specific [place] 1.020 (1.005-1.030) 05/26/17 23:55 Urine Protein NEGATIVE mg/dL (NEGATIVE) 05/26/17 23:55 Urine Glucose (UA) NEGATIVE mg/dL (NEGATIVE) 05/26/17 23:55 Urine Ketones TRACE mg/dL (NEGATIVE) 05/26/17 23:55 Urine Blood NEGATIVE (NEGATIVE) 05/26/17 23:55 Urine Nitrate NEGATIVE (NEGATIVE) 05/26/17 23:55 Urine Bilirubin NEGATIVE (NEGATIVE) 05/26/17 23:55 Urine Urobilinogen 0.2 E.U./dL (0.2 - 1.0) 05/26/17 23:55 Ur Leukocyte Esterase SMALL (NEGATIVE) H 05/26/17 23:55 Urine RBC 0-2 /hpf (0-5) 05/26/17 23:55 Urine WBC 10-25 /hpf (0-5) H 05/26/17 23:55 Ur Epithelial Cells MODERATE /lpf (FEW) 05/26/17 23:55 Urine Bacteria MODERATE /hpf (NONE SEEN) H 05/26/17 23:55 Valproic Acid 10.1 ug/mL (50.0-100.0) L 05/26/17 20:51 RPR NONREACTIVE (NONREACTIVE) 05/26/17 20:51 - Physical Exam Vitals and I&O: Vital Signs Temp 97.6 F 05/29/17 06:16 Pulse 74 05/29/17 06:16 Resp 19 05/29/17 06:16 BP 111/59 05/29/17 06:16 Pulse Ox 97 05/29/17 06:16 Active Medications: Current Medications Acetaminophen (Tylenol) 650 mg PO Q4HR PRN PRN Reason: Pain or Fever >101 Stop: 07/26/17 13:14 Last Admin: 05/28/17 01:41 Dose: 650 mg Acetaminophen/Hydrocodone Bitart ([place] 5mg/325mg) 1 tab PO Q4H PRN PRN Reason: Pain (Severe) Stop: 07/26/17 13:36 Last Admin: 05/30/17 15:38 Dose: 1 tab Al Hydrox/Mg Hydrox/Simethicone (Maalox) 30 ml PO Q4HR PRN PRN Reason: GI DISTRESS Stop: 07/26/17 13:14 Calcium/Vitamin D (Oscal W/Vitamin D) 1 tab PO BID CRISTINA Stop: 07/26/17 16:59 Last Admin: 05/30/17 08:57 Dose: 1 tab Divalproex Sodium (Depakote Er) 250 mg PO Q12HR CRISTINA PRN Reason: Protocol Stop: 07/26/17 08:59 Last Admin: 05/30/17 08:56 Dose: 250 mg Docusate Sodium (Colace) 250 mg PO DAILY CRISTINA Stop: 07/27/17 08:59 Last Admin: 05/30/17 08:57 Dose: 250 mg Levothyroxine Sodium (Synthroid) 0.088 mg PO QDAC CRISTINA Stop: 07/27/17 07:29 Last Admin: 05/30/17 06:44 Dose: 0.088 mg Lorazepam (Ativan) 0.5 mg PO Q6HR PRN; Protocol PRN Reason: Anxiety Stop: 07/26/17 06:00 Last Admin: 05/30/17 15:39 Dose: 0.5 mg Magnesium Hydroxide (Milk Of Magnesia) 30 ml PO DAILY PRN PRN Reason: Constipation Stop: 07/26/17 13:14 Naproxen (Naprosyn) 500 mg PO TID PRN PRN Reason: Pain (Moderate) Stop: 07/26/17 13:14 Last Admin: 05/30/17 15:39 Dose: 500 mg Risperidone (Risperdal) 3 mg PO BID CRISTINA PRN Reason: Protocol Stop: 07/26/17 08:59 Last Admin: 05/30/17 08:57 Dose: 3 mg Trazodone HCl (Desyrel) 150 mg PO HS CRISTINA PRN Reason: Protocol Stop: 07/26/17 20:59 Last Admin: 05/29/17 21:04 Dose: 150 mg Trimethoprim/Sulfamethoxazole (Bactrim Ds) 1 tab PO BID CRISTINA Stop: 06/02/17 16:59 Last Admin: 05/30/17 08:56 Dose: 1 tab Zolpidem Tartrate (Ambien) 5 mg PO HS PRN PRN Reason: Insomnia Stop: 07/25/17 22:26 Last Admin: 05/28/17 01:41 Dose: 5 mg General: alert HEENT: NC/AT, PERRLA Neck: Supple Lungs: CTAB Cardiovascular: RRR, Normal S1, Normal S2 Abdomen: soft, non-tender, non-distended, positive bowel sound Neurological: alert Internal Medicine Assmt/Plan - Assessment Assessment: acute uti schizoaffective disorder obesity hypothyroidism - Plan Plan: continue po abx fall precautions continue current plan of care
--- NOTE | 2017-05-30 22:36 | Progress Notes ---
DATE: PSYCHIATRIC PROGRESS NOTE SUBJECTIVE: Chart reviewed. The patient interviewed. Also discussed the patient's condition with the staff and reviewed records and labs. The patient continued to call the names that are not present. She also is still re-obsessed with her pain medications and keep saying " Parmelee, Parmelee." She also still has severe mood swings and easily irritable and easily agitated. She also needs lots of redirections. Otherwise, the patient is compliant with taking medications with no side effects of medications. ASSESSMENT: The patient is still psychotic and is still agitated and dependent on pain medications. TREATMENT PLAN: Continue monitoring her behavior closely and work on behavioral medications and adjusting psychotropic medications. JOB# [id number]
[2017-05-31] MEDS: Levothyroxine 0.088 Mg Tab PO SCH (06:45)
[2017-05-31] MEDS: Calcium Carb/Vit D 500 mg/200 U Tab PO SCH ×2 (11:13→18:22)
[2017-05-31] MEDS: Multivitamin w/ Minerals Tab PO SCH (11:14)
[2017-05-31] MEDS: Sulfamethoxazole/TMP 800/160mg Tab PO SCH ×2 (11:15→18:22)
--- NOTE | 2017-05-31 15:48 | Internal Medicine Prog Note ---
Internal Medicine Subjective - Subjective Service Date: 05/31/17 Patient is:: awake, verbal Per staff patient has:: tolerating meds Internal Medicine Objective - Results Result Diagrams: 05/26/17 20:51 05/26/17 20:51 Recent Labs: Laboratory Last Values WBC 9.1 Th/cmm (4.8-10.8) D 05/26/17 20:51 RBC 3.99 Mil/cmm (3.80-5.10) 05/26/17 20:51 Hgb 13.2 gm/dL (12-16) 05/26/17 20:51 Hct 39.2 % (41.0-60) L 05/26/17 20:51 MCV 98.3 fl (81-100) 05/26/17 20:51 MCH 33.0 pg (27.0-31.0) H 05/26/17 20:51 MCHC Differential 33.6 pg (28.0-36.0) 05/26/17 20:51 RDW 13.2 % (11.5-20.0) 05/26/17 20:51 Plt Count 171 Th/cmm (150-400) 05/26/17 20:51 MPV 9.0 fl 05/26/17 20:51 Neutrophils % 64.3 % (40.0-80.0) 05/26/17 20:51 Lymphocytes % 23.9 % (20.0-50.0) 05/26/17 20:51 Monocytes % 10.8 % (2.0-10.0) H 05/26/17 20:51 Eosinophils % 0.9 % (0.0-5.0) 05/26/17 20:51 Basophils % 0.1 % (0.0-2.0) 05/26/17 20:51 Sodium 139 mEq/L (136-145) 05/26/17 20:51 Potassium 3.9 mEq/L (3.5-5.1) 05/26/17 20:51 Chloride 110 mEq/L (98-107) H 05/26/17 20:51 Carbon Dioxide 21.2 mEq/L (21.0-31.0) 05/26/17 20:51 Anion Gap 11.7 (7.0-16.0) 05/26/17 20:51 BUN 10 mg/dL (7-25) 05/26/17 20:51 Creatinine 0.6 mg/dL (0.6-1.2) 05/26/17 20:51 Est GFR ( Amer) > 60.0 ml/min (>90) 05/26/17 20:51 Est GFR (Non-Af Amer) > 60.0 ml/min 05/26/17 20:51 BUN/Creatinine Ratio 16.7 05/26/17 20:51 Glucose 109 mg/dL (70-105) H 05/26/17 20:51 Calcium 8.7 mg/dL (8.6-10.3) 05/26/17 20:51 TSH 3.85 uIU/ml (0.34-5.60) 05/26/17 20:51 Urine Source RANDOM 05/26/17 23:55 Urine Color YELLOW 05/26/17 23:55 Urine Clarity HAZY (CLEAR) 05/26/17 23:55 Urine pH 7.0 (4.6 - 8.0) 05/26/17 23:55 Ur Specific [place] 1.020 (1.005-1.030) 05/26/17 23:55 Urine Protein NEGATIVE mg/dL (NEGATIVE) 05/26/17 23:55 Urine Glucose (UA) NEGATIVE mg/dL (NEGATIVE) 05/26/17 23:55 Urine Ketones TRACE mg/dL (NEGATIVE) 05/26/17 23:55 Urine Blood NEGATIVE (NEGATIVE) 05/26/17 23:55 Urine Nitrate NEGATIVE (NEGATIVE) 05/26/17 23:55 Urine Bilirubin NEGATIVE (NEGATIVE) 05/26/17 23:55 Urine Urobilinogen 0.2 E.U./dL (0.2 - 1.0) 05/26/17 23:55 Ur Leukocyte Esterase SMALL (NEGATIVE) H 05/26/17 23:55 Urine RBC 0-2 /hpf (0-5) 05/26/17 23:55 Urine WBC 10-25 /hpf (0-5) H 05/26/17 23:55 Ur Epithelial Cells MODERATE /lpf (FEW) 05/26/17 23:55 Urine Bacteria MODERATE /hpf (NONE SEEN) H 05/26/17 23:55 Valproic Acid 10.1 ug/mL (50.0-100.0) L 01/30/18 20:51 RPR NONREACTIVE (NONREACTIVE) 05/26/17 20:51 - Physical Exam Vitals and I&O: Vital Signs Temp 97.6 F 05/29/17 06:16 Pulse 74 05/29/17 06:16 Resp 19 05/29/17 06:16 BP 111/59 05/29/17 06:16 Pulse Ox 97 05/29/17 06:16 Intake & Output 05/30/17 05/31/17 05/31/17 18:59 06:59 18:59 Intake Total 240 Balance 240 Intake: Oral 240 Active Medications: Current Medications Acetaminophen (Tylenol) 650 mg PO Q4HR PRN PRN Reason: Pain or Fever >101 Stop: 07/26/17 13:14 Last Admin: 05/28/17 01:41 Dose: 650 mg Acetaminophen/Hydrocodone Bitart ([place] 5mg/325mg) 1 tab PO Q4H PRN PRN Reason: Pain (Severe) Stop: 07/26/17 13:36 Last Admin: 05/30/17 15:38 Dose: 1 tab Al Hydrox/Mg Hydrox/Simethicone (Maalox) 30 ml PO Q4HR PRN PRN Reason: GI DISTRESS Stop: 07/26/17 13:14 Calcium/Vitamin D (Oscal W/Vitamin D) 1 tab PO BID CRISTINA Stop: 07/26/17 16:59 Last Admin: 05/31/17 11:13 Dose: 1 tab Divalproex Sodium (Depakote Er) 250 mg PO Q12HR CRISTINA PRN Reason: Protocol Stop: 07/26/17 08:59 Last Admin: 05/31/17 11:13 Dose: 250 mg Docusate Sodium (Colace) 250 mg PO DAILY CRISTINA Stop: 07/27/17 08:59 Last Admin: 05/31/17 11:14 Dose: 250 mg Levothyroxine Sodium (Synthroid) 0.088 mg PO QDAC CRISTINA Stop: 07/27/17 07:29 Last Admin: 05/31/17 06:45 Dose: 0.088 mg Lorazepam (Ativan) 0.5 mg PO Q6HR PRN; Protocol PRN Reason: Anxiety Stop: 07/26/17 06:00 Last Admin: 05/31/17 11:15 Dose: 0.5 mg Magnesium Hydroxide (Milk Of Magnesia) 30 ml PO DAILY PRN PRN Reason: Constipation Stop: 07/26/17 13:14 Naproxen (Naprosyn) 500 mg PO TID PRN PRN Reason: Pain (Moderate) Stop: 07/26/17 13:14 Last Admin: 05/30/17 15:39 Dose: 500 mg Risperidone (Risperdal) 3 mg PO BID CRISTINA PRN Reason: Protocol Stop: 07/26/17 08:59 Last Admin: 05/31/17 11:14 Dose: 3 mg Trazodone HCl (Desyrel) 150 mg PO HS CRISTINA PRN Reason: Protocol Stop: 07/26/17 20:59 Last Admin: 05/30/17 21:56 Dose: 150 mg Trimethoprim/Sulfamethoxazole (Bactrim Ds) 1 tab PO BID CRISTINA Stop: 06/02/17 16:59 Last Admin: 05/31/17 11:15 Dose: 1 tab Zolpidem Tartrate (Ambien) 5 mg PO HS PRN PRN Reason: Insomnia Stop: 07/25/17 22:26 Last Admin: 05/28/17 01:41 Dose: 5 mg General: alert HEENT: NC/AT, PERRLA Neck: Supple Lungs: CTAB Cardiovascular: RRR, Normal S1, Normal S2 Abdomen: soft, non-tender, non-distended, positive bowel sound Neurological: alert Internal Medicine Assmt/Plan - Assessment Assessment: acute uti schizoaffective disorder obesity hypothyroidism - Plan Plan: continue po abx fall precautions continue current plan of care
[2017-05-31] MEDS ORDERED: Probiotic Screen MC PRN (16:30)
[2017-05-31] MEDS: Hydrocodone/APAP 5mg/325mg Tab PO PRN (23:45)
[2017-06-01] MEDS: Levothyroxine 0.088 Mg Tab PO SCH (06:39)
[2017-06-01] MEDS: Lactobacillus Rhamnosus GG 15 Billion CFU CAP.SPRINK PO SCH (09:53)
[2017-06-01] MEDS: Multivitamin w/ Minerals Tab PO SCH (09:53)
[2017-06-01] MEDS: Calcium Carb/Vit D 500 mg/200 U Tab PO SCH ×2 (09:53→17:42)
[2017-06-01] MEDS: Sulfamethoxazole/TMP 800/160mg Tab PO SCH ×2 (09:53→17:43)
--- NOTE | 2017-06-01 13:15 | Internal Medicine Prog Note ---
Internal Medicine Subjective - Subjective Service Date: 06/01/17 Patient is:: awake, verbal Per staff patient has:: tolerating meds Internal Medicine Objective - Results Result Diagrams: 05/26/17 20:51 05/26/17 20:51 Recent Labs: Laboratory Last Values WBC 9.1 Th/cmm (4.8-10.8) D 05/26/17 20:51 RBC 3.99 Mil/cmm (3.80-5.10) 05/26/17 20:51 Hgb 13.2 gm/dL (12-16) 05/26/17 20:51 Hct 39.2 % (41.0-60) L 05/26/17 20:51 MCV 98.3 fl (81-100) 05/26/17 20:51 MCH 33.0 pg (27.0-31.0) H 05/26/17 20:51 MCHC Differential 33.6 pg (28.0-36.0) 05/26/17 20:51 RDW 13.2 % (11.5-20.0) 05/26/17 20:51 Plt Count 171 Th/cmm (150-400) 05/26/17 20:51 MPV 9.0 fl 05/26/17 20:51 Neutrophils % 64.3 % (40.0-80.0) 05/26/17 20:51 Lymphocytes % 23.9 % (20.0-50.0) 05/26/17 20:51 Monocytes % 10.8 % (2.0-10.0) H 05/26/17 20:51 Eosinophils % 0.9 % (0.0-5.0) 05/26/17 20:51 Basophils % 0.1 % (0.0-2.0) 05/26/17 20:51 Sodium 139 mEq/L (136-145) 05/26/17 20:51 Potassium 3.9 mEq/L (3.5-5.1) 05/26/17 20:51 Chloride 110 mEq/L (98-107) H 05/26/17 20:51 Carbon Dioxide 21.2 mEq/L (21.0-31.0) 05/26/17 20:51 Anion Gap 11.7 (7.0-16.0) 05/26/17 20:51 BUN 10 mg/dL (7-25) 05/26/17 20:51 Creatinine 0.6 mg/dL (0.6-1.2) 05/26/17 20:51 Est GFR ( Amer) > 60.0 ml/min (>90) 05/26/17 20:51 Est GFR (Non-Af Amer) > 60.0 ml/min 05/26/17 20:51 BUN/Creatinine Ratio 16.7 05/26/17 20:51 Glucose 109 mg/dL (70-105) H 05/26/17 20:51 Calcium 8.7 mg/dL (8.6-10.3) 05/26/17 20:51 TSH 3.85 uIU/ml (0.34-5.60) 05/26/17 20:51 Urine Source RANDOM 05/26/17 23:55 Urine Color YELLOW 05/26/17 23:55 Urine Clarity HAZY (CLEAR) 05/26/17 23:55 Urine pH 7.0 (4.6 - 8.0) 05/26/17 23:55 Ur Specific [place] 1.020 (1.005-1.030) 05/26/17 23:55 Urine Protein NEGATIVE mg/dL (NEGATIVE) 05/26/17 23:55 Urine Glucose (UA) NEGATIVE mg/dL (NEGATIVE) 05/26/17 23:55 Urine Ketones TRACE mg/dL (NEGATIVE) 05/26/17 23:55 Urine Blood NEGATIVE (NEGATIVE) 05/26/17 23:55 Urine Nitrate NEGATIVE (NEGATIVE) 05/26/17 23:55 Urine Bilirubin NEGATIVE (NEGATIVE) 05/26/17 23:55 Urine Urobilinogen 0.2 E.U./dL (0.2 - 1.0) 05/26/17 23:55 Ur Leukocyte Esterase SMALL (NEGATIVE) H 05/26/17 23:55 Urine RBC 0-2 /hpf (0-5) 05/26/17 23:55 Urine WBC 10-25 /hpf (0-5) H 05/26/17 23:55 Ur Epithelial Cells MODERATE /lpf (FEW) 05/26/17 23:55 Urine Bacteria MODERATE /hpf (NONE SEEN) H 05/26/17 23:55 Valproic Acid 10.1 ug/mL (50.0-100.0) L 01/30/18 20:51 RPR NONREACTIVE (NONREACTIVE) 05/26/17 20:51 - Physical Exam Vitals and I&O: Vital Signs Temp 99.6 F 05/31/17 20:00 Pulse 111 05/31/17 20:00 Resp 20 05/31/17 20:00 BP 108/57 05/31/17 20:00 Pulse Ox 93 05/31/17 20:00 Intake & Output 05/31/17 06/01/17 06/01/17 18:59 06:59 18:59 Intake Total 240 Balance 240 Intake: Oral 240 Active Medications: Current Medications Acetaminophen (Tylenol) 650 mg PO Q4HR PRN PRN Reason: Pain or Fever >101 Stop: 07/26/17 13:14 Last Admin: 05/28/17 01:41 Dose: 650 mg Acetaminophen/Hydrocodone Bitart ([place] 5mg/325mg) 1 tab PO Q4H PRN PRN Reason: Pain (Severe) Stop: 07/26/17 13:36 Last Admin: 05/31/17 23:45 Dose: 1 tab Al Hydrox/Mg Hydrox/Simethicone (Maalox) 30 ml PO Q4HR PRN PRN Reason: GI DISTRESS Stop: 07/26/17 13:14 Calcium/Vitamin D (Oscal W/Vitamin D) 1 tab PO BID CRISTINA Stop: 07/26/17 16:59 Last Admin: 06/01/17 09:53 Dose: 1 tab Divalproex Sodium (Depakote Er) 250 mg PO Q12HR CRISTINA PRN Reason: Protocol Stop: 07/26/17 08:59 Last Admin: 06/01/17 09:53 Dose: 250 mg Docusate Sodium (Colace) 250 mg PO DAILY CRISTINA Stop: 07/27/17 08:59 Last Admin: 06/01/17 09:53 Dose: 250 mg Lactobacillus Rhamnosus (Culturelle 15b) 1 each PO DAILY CRISTINA Stop: 06/09/17 08:59 Last Admin: 06/01/17 09:53 Dose: 1 each Levothyroxine Sodium (Synthroid) 0.088 mg PO QDAC CRISTINA Stop: 07/27/17 07:29 Last Admin: 06/01/17 06:39 Dose: 0.088 mg Lorazepam (Ativan) 0.5 mg PO Q6HR PRN; Protocol PRN Reason: Anxiety Stop: 07/26/17 06:00 Last Admin: 05/31/17 18:22 Dose: 0.5 mg Magnesium Hydroxide (Milk Of Magnesia) 30 ml PO DAILY PRN PRN Reason: Constipation Stop: 07/26/17 13:14 Miscellaneous (Probiotic Screen) 1 ea MC PRN PRN PRN Reason: PROTOCOL Stop: 07/30/17 16:29 Naproxen (Naprosyn) 500 mg PO TID PRN PRN Reason: Pain (Moderate) Stop: 07/26/17 13:14 Last Admin: 06/01/17 04:26 Dose: 500 mg Risperidone (Risperdal) 3 mg PO BID CRISTINA PRN Reason: Protocol Stop: 07/26/17 08:59 Last Admin: 06/01/17 09:53 Dose: 3 mg Trazodone HCl (Desyrel) 150 mg PO HS CRISTINA PRN Reason: Protocol Stop: 07/26/17 20:59 Last Admin: 05/31/17 20:50 Dose: Not Given Trimethoprim/Sulfamethoxazole (Bactrim Ds) 1 tab PO BID CRISTINA Stop: 06/02/17 16:59 Last Admin: 06/01/17 09:53 Dose: 1 tab Zolpidem Tartrate (Ambien) 5 mg PO HS PRN PRN Reason: Insomnia Stop: 07/25/17 22:26 Last Admin: 05/28/17 01:41 Dose: 5 mg General: alert HEENT: NC/AT, PERRLA Neck: Supple Lungs: CTAB Cardiovascular: RRR, Normal S1, Normal S2 Abdomen: soft, non-tender, non-distended, positive bowel sound Neurological: alert Internal Medicine Assmt/Plan - Assessment Assessment: acute uti schizoaffective disorder obesity hypothyroidism - Plan Plan: continue po abx fall precautions continue current plan of care
--- NOTE | 2017-06-02 08:16 | Progress Notes ---
DATE: 06/01/2017 SUBJECTIVE: The patient seen, chart reviewed, discussed with staff. The patient is currently in the hospital, initially evaluated by Dr. Mcgraw. The patient coming from [facility], history of being conserved, paranoid, acting psychotic, crying uncontrollably, scared, fearful, multiple prior admissions. Dr. Crain has been seeing this patient over the past few days, noting that the patient remains psychotic, still calling names that are not present, talking about [place], mood swings, irritability, agitation. On [id number], the patient noting that she is here because people are trying to kill at the senior living, still feels paranoid, disoriented and demanding to leave. ASSESSMENT: The patient remains symptomatic, confused, disoriented, paranoid. PLAN: We will continue to monitor. Continue risperidone. Medications reviewed. Given ongoing psychotic symptoms. The patient is not safe for discharge. JOB# [id number]
[2017-06-02] MEDS: Multivitamin w/ Minerals Tab PO SCH (09:34)
[2017-06-02] MEDS: Lactobacillus Rhamnosus GG 15 Billion CFU CAP.SPRINK PO SCH (09:34)
[2017-06-02] MEDS: Sulfamethoxazole/TMP 800/160mg Tab PO SCH (09:35)
[2017-06-02] MEDS: Calcium Carb/Vit D 500 mg/200 U Tab PO SCH ×2 (09:35→18:30)
--- NOTE | 2017-06-02 13:02 | Internal Medicine Prog Note ---
Internal Medicine Subjective - Subjective Service Date: 06/02/17 Patient is:: awake, verbal Per staff patient has:: tolerating meds Internal Medicine Objective - Results Result Diagrams: 05/26/17 20:51 05/26/17 20:51 Recent Labs: Laboratory Last Values WBC 9.1 Th/cmm (4.8-10.8) D 05/26/17 20:51 RBC 3.99 Mil/cmm (3.80-5.10) 05/26/17 20:51 Hgb 13.2 gm/dL (12-16) 05/26/17 20:51 Hct 39.2 % (41.0-60) L 05/26/17 20:51 MCV 98.3 fl (81-100) 05/26/17 20:51 MCH 33.0 pg (27.0-31.0) H 05/26/17 20:51 MCHC Differential 33.6 pg (28.0-36.0) 05/26/17 20:51 RDW 13.2 % (11.5-20.0) 05/26/17 20:51 Plt Count 171 Th/cmm (150-400) 05/26/17 20:51 MPV 9.0 fl 05/26/17 20:51 Neutrophils % 64.3 % (40.0-80.0) 05/26/17 20:51 Lymphocytes % 23.9 % (20.0-50.0) 05/26/17 20:51 Monocytes % 10.8 % (2.0-10.0) H 05/26/17 20:51 Eosinophils % 0.9 % (0.0-5.0) 05/26/17 20:51 Basophils % 0.1 % (0.0-2.0) 05/26/17 20:51 Sodium 139 mEq/L (136-145) 05/26/17 20:51 Potassium 3.9 mEq/L (3.5-5.1) 05/26/17 20:51 Chloride 110 mEq/L (98-107) H 05/26/17 20:51 Carbon Dioxide 21.2 mEq/L (21.0-31.0) 05/26/17 20:51 Anion Gap 11.7 (7.0-16.0) 05/26/17 20:51 BUN 10 mg/dL (7-25) 05/26/17 20:51 Creatinine 0.6 mg/dL (0.6-1.2) 05/26/17 20:51 Est GFR ( Amer) > 60.0 ml/min (>90) 05/26/17 20:51 Est GFR (Non-Af Amer) > 60.0 ml/min 05/26/17 20:51 BUN/Creatinine Ratio 16.7 05/26/17 20:51 Glucose 109 mg/dL (70-105) H 05/26/17 20:51 Calcium 8.7 mg/dL (8.6-10.3) 05/26/17 20:51 TSH 3.85 uIU/ml (0.34-5.60) 05/26/17 20:51 Urine Source RANDOM 05/26/17 23:55 Urine Color YELLOW 05/26/17 23:55 Urine Clarity HAZY (CLEAR) 05/26/17 23:55 Urine pH 7.0 (4.6 - 8.0) 05/26/17 23:55 Ur Specific [place] 1.020 (1.005-1.030) 05/26/17 23:55 Urine Protein NEGATIVE mg/dL (NEGATIVE) 05/26/17 23:55 Urine Glucose (UA) NEGATIVE mg/dL (NEGATIVE) 05/26/17 23:55 Urine Ketones TRACE mg/dL (NEGATIVE) 05/26/17 23:55 Urine Blood NEGATIVE (NEGATIVE) 05/26/17 23:55 Urine Nitrate NEGATIVE (NEGATIVE) 05/26/17 23:55 Urine Bilirubin NEGATIVE (NEGATIVE) 05/26/17 23:55 Urine Urobilinogen 0.2 E.U./dL (0.2 - 1.0) 05/26/17 23:55 Ur Leukocyte Esterase SMALL (NEGATIVE) H 05/26/17 23:55 Urine RBC 0-2 /hpf (0-5) 05/26/17 23:55 Urine WBC 10-25 /hpf (0-5) H 05/26/17 23:55 Ur Epithelial Cells MODERATE /lpf (FEW) 05/26/17 23:55 Urine Bacteria MODERATE /hpf (NONE SEEN) H 05/26/17 23:55 Valproic Acid 10.1 ug/mL (50.0-100.0) L 05/26/17 20:51 RPR NONREACTIVE (NONREACTIVE) 05/26/17 20:51 - Physical Exam Vitals and I&O: Vital Signs Temp 99.1 F 06/02/17 06:57 Pulse 81 06/02/17 06:57 Resp 20 06/02/17 06:57 BP 109/61 06/02/17 06:57 Pulse Ox 96 06/02/17 06:57 Intake & Output 06/01/17 06/02/17 06/02/17 18:59 06:59 18:59 Intake Total 780 Balance 780 Intake: Oral 780 Other: # Voids 2 Active Medications: Current Medications Acetaminophen (Tylenol) 650 mg PO Q4HR PRN PRN Reason: Pain or Fever >101 Stop: 07/26/17 13:14 Last Admin: 05/28/17 01:41 Dose: 650 mg Acetaminophen/Hydrocodone Bitart ([place] 5mg/325mg) 1 tab PO Q4H PRN PRN Reason: Pain (Severe) Stop: 07/26/17 13:36 Last Admin: 05/31/17 23:45 Dose: 1 tab Al Hydrox/Mg Hydrox/Simethicone (Maalox) 30 ml PO Q4HR PRN PRN Reason: GI DISTRESS Stop: 07/26/17 13:14 Calcium/Vitamin D (Oscal W/Vitamin D) 1 tab PO BID CRISTINA Stop: 07/26/17 16:59 Last Admin: 06/02/17 09:35 Dose: 1 tab Divalproex Sodium (Depakote Er) 500 mg PO Q12HR CRISTINA PRN Reason: Protocol Stop: 08/01/17 20:59 Docusate Sodium (Colace) 250 mg PO DAILY CRISTINA Stop: 07/27/17 08:59 Last Admin: 06/02/17 09:34 Dose: 250 mg Lactobacillus Rhamnosus (Culturelle 15b) 1 each PO DAILY CRISTINA Stop: 06/09/17 08:59 Last Admin: 06/02/17 09:34 Dose: 1 each Levothyroxine Sodium (Synthroid) 0.088 mg PO QDAC CRISTINA Stop: 07/27/17 07:29 Last Admin: 06/01/17 06:39 Dose: 0.088 mg Lorazepam (Ativan) 0.5 mg PO Q6HR PRN; Protocol PRN Reason: Anxiety Stop: 07/26/17 06:00 Last Admin: 05/31/17 18:22 Dose: 0.5 mg Magnesium Hydroxide (Milk Of Magnesia) 30 ml PO DAILY PRN PRN Reason: Constipation Stop: 07/26/17 13:14 Miscellaneous (Probiotic Screen) 1 ea MC PRN PRN PRN Reason: PROTOCOL Stop: 07/30/17 16:29 Naproxen (Naprosyn) 500 mg PO TID PRN PRN Reason: Pain (Moderate) Stop: 07/26/17 13:14 Last Admin: 06/01/17 04:26 Dose: 500 mg Risperidone (Risperdal) 3 mg PO BID CRISTINA PRN Reason: Protocol Stop: 07/26/17 08:59 Last Admin: 06/02/17 09:34 Dose: 3 mg Trazodone HCl (Desyrel) 150 mg PO HS CRISTINA PRN Reason: Protocol Stop: 07/26/17 20:59 Last Admin: 06/01/17 20:19 Dose: 150 mg Trimethoprim/Sulfamethoxazole (Bactrim Ds) 1 tab PO BID CRISTINA Stop: 06/02/17 16:59 Last Admin: 06/02/17 09:35 Dose: 1 tab Zolpidem Tartrate (Ambien) 5 mg PO HS PRN PRN Reason: Insomnia Stop: 07/25/17 22:26 Last Admin: 05/28/17 01:41 Dose: 5 mg General: alert HEENT: NC/AT, PERRLA Neck: Supple Lungs: CTAB Cardiovascular: RRR, Normal S1, Normal S2 Abdomen: soft, non-tender, non-distended, positive bowel sound Neurological: alert Internal Medicine Assmt/Plan - Assessment Assessment: acute uti schizoaffective disorder obesity hypothyroidism - Plan Plan: continue po abx fall precautions continue current plan of care
--- NOTE | 2017-06-02 19:07 | Progress Notes ---
DATE: 06/02/2017 SUBJECTIVE: The patient seen, chart reviewed, discussed with staff. The patient is coming from [facility], history of being conserved, paranoid, stating things such as "save our souls," fixated on roommate, calling "dirty liar." The patient remains psychotic, internally preoccupied, whispering, paranoid, still believes that people are trying to harm her. MEDICATIONS: Reviewed. ASSESSMENT: The patient remains symptomatic, disoriented, still with evidence of psychosis. PLAN: We will continue to monitor. The patient will benefit from medication adjustments. Given the severity of her ongoing symptoms, she is not safe for discharge. [facility]# [id number]
[2017-06-03] MEDS: Hydrocodone/APAP 5mg/325mg Tab PO PRN ×2 (04:33→13:43)
[2017-06-03] MEDS: Levothyroxine 0.088 Mg Tab PO SCH (06:46)
--- NOTE | 2017-06-03 07:00 | Progress Notes ---
DATE: 05/31/2017 SUBJECTIVE: Chart reviewed and the patient interviewed. Also discussed the patient's condition with the staff and reviewed records and labs. The patient is demanding and is confused. She also is still hostile towards the staff and roommate. She also is verbally abused. The patient also is focused on pain medications and she keeps asking for "[place]." She also is still having severe mood swings. ASSESSMENT: The patient is still agitated and needs close monitoring. TREATMENT PLAN: Continue to monitor behavior and condition closely. Also, continue adjusting psychotropic medications and continue behavioral modifications. JOB# [id number]
[2017-06-03] MEDS: Calcium Carb/Vit D 500 mg/200 U Tab PO SCH ×2 (09:42→17:25)
[2017-06-03] MEDS: Multivitamin w/ Minerals Tab PO SCH (09:42)
[2017-06-03] MEDS: Lactobacillus Rhamnosus GG 15 Billion CFU CAP.SPRINK PO SCH (09:42)
--- NOTE | 2017-06-03 13:22 | Internal Medicine Prog Note ---
Internal Medicine Subjective - Subjective Service Date: 06/03/17 Patient is:: awake, verbal Per staff patient has:: tolerating meds Internal Medicine Objective - Results Result Diagrams: 05/26/17 20:51 05/26/17 20:51 Recent Labs: Laboratory Last Values WBC 9.1 Th/cmm (4.8-10.8) D 05/26/17 20:51 RBC 3.99 Mil/cmm (3.80-5.10) 05/26/17 20:51 Hgb 13.2 gm/dL (12-16) 05/26/17 20:51 Hct 39.2 % (41.0-60) L 05/26/17 20:51 MCV 98.3 fl (81-100) 05/26/17 20:51 MCH 33.0 pg (27.0-31.0) H 05/26/17 20:51 MCHC Differential 33.6 pg (28.0-36.0) 05/26/17 20:51 RDW 13.2 % (11.5-20.0) 05/26/17 20:51 Plt Count 171 Th/cmm (150-400) 05/26/17 20:51 MPV 9.0 fl 05/26/17 20:51 Neutrophils % 64.3 % (40.0-80.0) 05/26/17 20:51 Lymphocytes % 23.9 % (20.0-50.0) 05/26/17 20:51 Monocytes % 10.8 % (2.0-10.0) H 05/26/17 20:51 Eosinophils % 0.9 % (0.0-5.0) 05/26/17 20:51 Basophils % 0.1 % (0.0-2.0) 05/26/17 20:51 Sodium 139 mEq/L (136-145) 05/26/17 20:51 Potassium 3.9 mEq/L (3.5-5.1) 05/26/17 20:51 Chloride 110 mEq/L (98-107) H 05/26/17 20:51 Carbon Dioxide 21.2 mEq/L (21.0-31.0) 05/26/17 20:51 Anion Gap 11.7 (7.0-16.0) 05/26/17 20:51 BUN 10 mg/dL (7-25) 05/26/17 20:51 Creatinine 0.6 mg/dL (0.6-1.2) 05/26/17 20:51 Est GFR ( Amer) > 60.0 ml/min (>90) 05/26/17 20:51 Est GFR (Non-Af Amer) > 60.0 ml/min 05/26/17 20:51 BUN/Creatinine Ratio 16.7 05/26/17 20:51 Glucose 109 mg/dL (70-105) H 05/26/17 20:51 Calcium 8.7 mg/dL (8.6-10.3) 05/26/17 20:51 TSH 3.85 uIU/ml (0.34-5.60) 05/26/17 20:51 Urine Source RANDOM 05/26/17 23:55 Urine Color YELLOW 05/26/17 23:55 Urine Clarity HAZY (CLEAR) 05/26/17 23:55 Urine pH 7.0 (4.6 - 8.0) 05/26/17 23:55 Ur Specific [place] 1.020 (1.005-1.030) 05/26/17 23:55 Urine Protein NEGATIVE mg/dL (NEGATIVE) 05/26/17 23:55 Urine Glucose (UA) NEGATIVE mg/dL (NEGATIVE) 05/26/17 23:55 Urine Ketones TRACE mg/dL (NEGATIVE) 05/26/17 23:55 Urine Blood NEGATIVE (NEGATIVE) 05/26/17 23:55 Urine Nitrate NEGATIVE (NEGATIVE) 05/26/17 23:55 Urine Bilirubin NEGATIVE (NEGATIVE) 05/26/17 23:55 Urine Urobilinogen 0.2 E.U./dL (0.2 - 1.0) 05/26/17 23:55 Ur Leukocyte Esterase SMALL (NEGATIVE) H 05/26/17 23:55 Urine RBC 0-2 /hpf (0-5) 05/26/17 23:55 Urine WBC 10-25 /hpf (0-5) H 05/26/17 23:55 Ur Epithelial Cells MODERATE /lpf (FEW) 05/26/17 23:55 Urine Bacteria MODERATE /hpf (NONE SEEN) H 05/26/17 23:55 Valproic Acid 10.1 ug/mL (50.0-100.0) L 01/30/18 20:51 RPR NONREACTIVE (NONREACTIVE) 05/26/17 20:51 - Physical Exam Vitals and I&O: Vital Signs Temp 99.8 F 06/02/17 20:00 Pulse 86 06/02/17 20:00 Resp 20 06/02/17 20:00 BP 113/77 06/02/17 20:00 Pulse Ox 97 06/02/17 20:00 Intake & Output 06/02/17 06/03/17 06/03/17 18:59 06:59 18:59 Intake Total 240 Balance 240 Intake: Oral 240 Other: # Voids 1 Active Medications: Current Medications Acetaminophen (Tylenol) 650 mg PO Q4HR PRN PRN Reason: Pain or Fever >101 Stop: 07/26/17 13:14 Last Admin: 05/28/17 01:41 Dose: 650 mg Acetaminophen/Hydrocodone Bitart ([place] 5mg/325mg) 1 tab PO Q4H PRN PRN Reason: Pain (Severe) Stop: 07/26/17 13:36 Last Admin: 06/03/17 04:33 Dose: 1 tab Al Hydrox/Mg Hydrox/Simethicone (Maalox) 30 ml PO Q4HR PRN PRN Reason: GI DISTRESS Stop: 07/26/17 13:14 Calcium/Vitamin D (Oscal W/Vitamin D) 1 tab PO BID CRISTINA Stop: 07/26/17 16:59 Last Admin: 06/03/17 09:42 Dose: 1 tab Divalproex Sodium (Depakote Er) 500 mg PO Q12HR CRISTINA PRN Reason: Protocol Stop: 08/01/17 20:59 Last Admin: 06/02/17 22:13 Dose: Not Given Docusate Sodium (Colace) 250 mg PO DAILY CRISTINA Stop: 07/27/17 08:59 Last Admin: 06/03/17 09:42 Dose: 250 mg Lactobacillus Rhamnosus (Culturelle 15b) 1 each PO DAILY CRISTINA Stop: 06/09/17 08:59 Last Admin: 06/03/17 09:42 Dose: 1 each Levothyroxine Sodium (Synthroid) 0.088 mg PO QDAC CRISTINA Stop: 07/27/17 07:29 Last Admin: 06/03/17 06:46 Dose: Not Given Lorazepam (Ativan) 0.5 mg PO Q6HR PRN; Protocol PRN Reason: Anxiety Stop: 07/26/17 06:00 Last Admin: 05/31/17 18:22 Dose: 0.5 mg Magnesium Hydroxide (Milk Of Magnesia) 30 ml PO DAILY PRN PRN Reason: Constipation Stop: 07/26/17 13:14 Miscellaneous (Probiotic Screen) 1 ea MC PRN PRN PRN Reason: PROTOCOL Stop: 07/30/17 16:29 Naproxen (Naprosyn) 500 mg PO TID PRN PRN Reason: Pain (Moderate) Stop: 07/26/17 13:14 Last Admin: 06/01/17 04:26 Dose: 500 mg Risperidone (Risperdal) 3 mg PO BID CRISTINA PRN Reason: Protocol Stop: 07/26/17 08:59 Last Admin: 06/03/17 09:42 Dose: 3 mg Trazodone HCl (Desyrel) 150 mg PO HS CRISTINA PRN Reason: Protocol Stop: 07/26/17 20:59 Last Admin: 06/02/17 22:13 Dose: Not Given Zolpidem Tartrate (Ambien) 5 mg PO HS PRN PRN Reason: Insomnia Stop: 07/25/17 22:26 Last Admin: 05/28/17 01:41 Dose: 5 mg General: alert HEENT: NC/AT, PERRLA Neck: Supple Lungs: CTAB Cardiovascular: RRR, Normal S1, Normal S2 Abdomen: soft, non-tender, non-distended, positive bowel sound Neurological: alert Internal Medicine Assmt/Plan - Assessment Assessment: acute uti schizoaffective disorder obesity hypothyroidism - Plan Plan: continue po abx fall precautions continue current plan of care Nutritional Asmnt/Malnutr-PDOC - Dietary Evaluation Malnutrition Findings (Please click <Entered> for more info): Nutritional Asmnt/Malnutrition Start: 06/02/17 18: 50 Text: Status: Complete Freq: Document 06/02/17 18:50 IKER (Rec: 06/02/17 18:53 IKER [email or web address]) Nutritional Asmnt/Malnutrition Patient General Information Nutritional Screening Low Risk Diagnosis psychosis Pertinent Medical Hx/Surgical Hx schizoaffective disorder, opbesity, hypothyroidism Subjective Information Per records, PO intake 25-75%, avg 50%, meeting 100% of nutritional needs. Current Diet Order/ Nutrition Support regular Pertinent Medications oscal w/vit D, colace, culturelle, synthroid Pertinent Labs 05/26 cl 110, glucose 109 Nutritional Hx/Data Height 5 ft 3 in Height (Calculated Centimeters) 160.0 Current Weight (lbs) 150 lb Weight (Calculated Kilograms) 68.0 Weight (Calculated Grams) 58887.9 [place] Body Weight 115 Body Mass Index (BMI) 26.5 Weight Status Obese GI Symptoms GI Symptoms None Last BM no record Difficult in: None Skin Integrity/Comment: intact Estimated Nutritional Goals BEE in Kcals: Adj wt of IBW Calories/Kcals/Kg 25-30 Kcals Calculated 5930-7417 Protein: Adj wt of IBW Protein g/k Protein Calculated 56 Fluid: ml 0535-6735 Nutritional Problem No current Nutrition Prob Problem N/A Malnutrition Alert Protein-Calorie Malnutrition N/A Is there a minimum of two criteria No selected? Query Text:Check all the applicable criteria. A minimum of two criteria are recommended for diagnosis of either severe or non-severe malnutrition. Intervention/Recommendation Comments 1. Continue with current diet as ordered. 2. Monitor PO intake, wt, labs and skin integrity 3. F/U as low risk in 7 days, 06/09 Expected Outcomes/Goals Expected Outcomes/Goals 1. PO intake to meet at least 75% of nutritional needs. 2. Wt stability, skin to remain intact, labs to approach WNL.
--- NOTE | 2017-06-03 23:55 | Progress Notes ---
DATE: 06/03/2017 SUBJECTIVE: The patient seen, chart reviewed, discussed with staff. The patient remains paranoid, still believing that staff are trying to kill or harm her. Still talking about "saving our souls" fixated on roommate, erratic medication compliance. Needing a lot of prompting, reclusive, isolative. The patient is sleeping fairly well, eating well. ASSESSMENT: The patient remains symptomatic, psychotic, paranoid. PLAN: We will continue to monitor, encourage better med compliance. Given her ongoing symptoms of paranoia, delusions, she is not safe for discharge. [facility]# [id number]
[2017-06-04] MEDS: Calcium Carb/Vit D 500 mg/200 U Tab PO SCH ×2 (08:26→17:17)
[2017-06-04] MEDS: Lactobacillus Rhamnosus GG 15 Billion CFU CAP.SPRINK PO SCH (08:27)
[2017-06-04] MEDS: Multivitamin w/ Minerals Tab PO SCH (08:27)
[2017-06-04] MEDS: Hydrocodone/APAP 5mg/325mg Tab PO PRN ×2 (12:21→17:18)
--- NOTE | 2017-06-04 13:33 | Internal Medicine Prog Note ---
Internal Medicine Subjective - Subjective Service Date: 06/04/17 Patient is:: awake, verbal Per staff patient has:: tolerating meds Internal Medicine Objective - Results Result Diagrams: 05/26/17 20:51 05/26/17 20:51 Recent Labs: Laboratory Last Values WBC 9.1 Th/cmm (4.8-10.8) D 05/26/17 20:51 RBC 3.99 Mil/cmm (3.80-5.10) 05/26/17 20:51 Hgb 13.2 gm/dL (12-16) 05/26/17 20:51 Hct 39.2 % (41.0-60) L 05/26/17 20:51 MCV 98.3 fl (81-100) 05/26/17 20:51 MCH 33.0 pg (27.0-31.0) H 05/26/17 20:51 MCHC Differential 33.6 pg (28.0-36.0) 05/26/17 20:51 RDW 13.2 % (11.5-20.0) 05/26/17 20:51 Plt Count 171 Th/cmm (150-400) 05/26/17 20:51 MPV 9.0 fl 05/26/17 20:51 Neutrophils % 64.3 % (40.0-80.0) 05/26/17 20:51 Lymphocytes % 23.9 % (20.0-50.0) 05/26/17 20:51 Monocytes % 10.8 % (2.0-10.0) H 05/26/17 20:51 Eosinophils % 0.9 % (0.0-5.0) 05/26/17 20:51 Basophils % 0.1 % (0.0-2.0) 05/26/17 20:51 Sodium 139 mEq/L (136-145) 05/26/17 20:51 Potassium 3.9 mEq/L (3.5-5.1) 05/26/17 20:51 Chloride 110 mEq/L (98-107) H 05/26/17 20:51 Carbon Dioxide 21.2 mEq/L (21.0-31.0) 05/26/17 20:51 Anion Gap 11.7 (7.0-16.0) 05/26/17 20:51 BUN 10 mg/dL (7-25) 05/26/17 20:51 Creatinine 0.6 mg/dL (0.6-1.2) 05/26/17 20:51 Est GFR ( Amer) > 60.0 ml/min (>90) 05/26/17 20:51 Est GFR (Non-Af Amer) > 60.0 ml/min 05/26/17 20:51 BUN/Creatinine Ratio 16.7 05/26/17 20:51 Glucose 109 mg/dL (70-105) H 05/26/17 20:51 Calcium 8.7 mg/dL (8.6-10.3) 05/26/17 20:51 TSH 3.85 uIU/ml (0.34-5.60) 05/26/17 20:51 Urine Source RANDOM 05/26/17 23:55 Urine Color YELLOW 05/26/17 23:55 Urine Clarity HAZY (CLEAR) 05/26/17 23:55 Urine pH 7.0 (4.6 - 8.0) 05/26/17 23:55 Ur Specific [place] 1.020 (1.005-1.030) 05/26/17 23:55 Urine Protein NEGATIVE mg/dL (NEGATIVE) 05/26/17 23:55 Urine Glucose (UA) NEGATIVE mg/dL (NEGATIVE) 05/26/17 23:55 Urine Ketones TRACE mg/dL (NEGATIVE) 05/26/17 23:55 Urine Blood NEGATIVE (NEGATIVE) 05/26/17 23:55 Urine Nitrate NEGATIVE (NEGATIVE) 05/26/17 23:55 Urine Bilirubin NEGATIVE (NEGATIVE) 05/26/17 23:55 Urine Urobilinogen 0.2 E.U./dL (0.2 - 1.0) 05/26/17 23:55 Ur Leukocyte Esterase SMALL (NEGATIVE) H 05/26/17 23:55 Urine RBC 0-2 /hpf (0-5) 05/26/17 23:55 Urine WBC 10-25 /hpf (0-5) H 05/26/17 23:55 Ur Epithelial Cells MODERATE /lpf (FEW) 05/26/17 23:55 Urine Bacteria MODERATE /hpf (NONE SEEN) H 05/26/17 23:55 Valproic Acid 10.1 ug/mL (50.0-100.0) L 01/30/18 20:51 RPR NONREACTIVE (NONREACTIVE) 05/26/17 20:51 - Physical Exam Vitals and I&O: Vital Signs Temp 97.8 F 06/03/17 15:27 Pulse 94 06/03/17 15:27 Resp 19 06/04/17 10:34 BP 106/66 06/03/17 15:27 Pulse Ox 98 06/03/17 15:27 Intake & Output 06/03/17 06/04/17 06/04/17 18:59 06:59 18:59 Intake Total 1200 Balance 1200 Intake: Oral 1200 Other: # Voids 3 Active Medications: Current Medications Acetaminophen (Tylenol) 650 mg PO Q4HR PRN PRN Reason: Pain or Fever >101 Stop: 07/26/17 13:14 Last Admin: 05/28/17 01:41 Dose: 650 mg Acetaminophen/Hydrocodone Bitart ([place] 5mg/325mg) 1 tab PO Q4H PRN PRN Reason: Pain (Severe) Stop: 07/26/17 13:36 Last Admin: 06/04/17 12:21 Dose: 1 tab Al Hydrox/Mg Hydrox/Simethicone (Maalox) 30 ml PO Q4HR PRN PRN Reason: GI DISTRESS Stop: 07/26/17 13:14 Calcium/Vitamin D (Oscal W/Vitamin D) 1 tab PO BID CRISTINA Stop: 07/26/17 16:59 Last Admin: 06/04/17 08:26 Dose: 1 tab Divalproex Sodium (Depakote Er) 500 mg PO Q12HR CRISTINA PRN Reason: Protocol Stop: 08/01/17 20:59 Last Admin: 06/04/17 08:26 Dose: Not Given Docusate Sodium (Colace) 250 mg PO DAILY CRISTINA Stop: 07/27/17 08:59 Last Admin: 06/04/17 08:27 Dose: 250 mg Lactobacillus Rhamnosus (Culturelle 15b) 1 each PO DAILY CRISTINA Stop: 06/09/17 08:59 Last Admin: 06/04/17 08:27 Dose: 1 each Levothyroxine Sodium (Synthroid) 0.088 mg PO QDAC CRISTINA Stop: 07/27/17 07:29 Last Admin: 06/03/17 06:46 Dose: Not Given Lorazepam (Ativan) 0.5 mg PO Q6HR PRN; Protocol PRN Reason: Anxiety Stop: 07/26/17 06:00 Last Admin: 05/31/17 18:22 Dose: 0.5 mg Magnesium Hydroxide (Milk Of Magnesia) 30 ml PO DAILY PRN PRN Reason: Constipation Stop: 07/26/17 13:14 Miscellaneous (Probiotic Screen) 1 ea MC PRN PRN PRN Reason: PROTOCOL Stop: 07/30/17 16:29 Naproxen (Naprosyn) 500 mg PO TID PRN PRN Reason: Pain (Moderate) Stop: 07/26/17 13:14 Last Admin: 06/04/17 09:31 Dose: 500 mg Risperidone (Risperdal) 3 mg PO BID CRISTINA PRN Reason: Protocol Stop: 07/26/17 08:59 Last Admin: 06/04/17 08:27 Dose: Not Given Trazodone HCl (Desyrel) 150 mg PO HS CRISTINA PRN Reason: Protocol Stop: 07/26/17 20:59 Last Admin: 06/03/17 20:32 Dose: 150 mg Zolpidem Tartrate (Ambien) 5 mg PO HS PRN PRN Reason: Insomnia Stop: 07/25/17 22:26 Last Admin: 05/28/17 01:41 Dose: 5 mg General: alert HEENT: NC/AT, PERRLA Neck: Supple Lungs: CTAB Cardiovascular: RRR, Normal S1, Normal S2 Abdomen: soft, non-tender, non-distended, positive bowel sound Neurological: alert Internal Medicine Assmt/Plan - Assessment Assessment: acute uti schizoaffective disorder obesity hypothyroidism - Plan Plan: continue po abx fall precautions continue current plan of care Nutritional Asmnt/Malnutr-PDOC - Dietary Evaluation Malnutrition Findings (Please click <Entered> for more info): Nutritional Asmnt/Malnutrition Start: 06/02/17 18: 50 Text: Status: Complete Freq: Document 06/02/17 18:50 IKER (Rec: 06/02/17 18:53 IKER [email or web address]) Nutritional Asmnt/Malnutrition Patient General Information Nutritional Screening Low Risk Diagnosis psychosis Pertinent Medical Hx/Surgical Hx schizoaffective disorder, opbesity, hypothyroidism Subjective Information Per records, PO intake 25-75%, avg 50%, meeting 100% of nutritional needs. Current Diet Order/ Nutrition Support regular Pertinent Medications oscal w/vit D, colace, culturelle, synthroid Pertinent Labs 05/26 cl 110, glucose 109 Nutritional Hx/Data Height 5 ft 3 in Height (Calculated Centimeters) 160.0 Current Weight (lbs) 150 lb Weight (Calculated Kilograms) 68.0 Weight (Calculated Grams) 10868.9 [place] Body Weight 115 Body Mass Index (BMI) 26.5 Weight Status Obese GI Symptoms GI Symptoms None Last BM no record Difficult in: None Skin Integrity/Comment: intact Estimated Nutritional Goals BEE in Kcals: Adj wt of IBW Calories/Kcals/Kg 25-30 Kcals Calculated 9350-0044 Protein: Adj wt of IBW Protein g/k Protein Calculated 56 Fluid: ml 4348-4746 Nutritional Problem No current Nutrition Prob Problem N/A Malnutrition Alert Protein-Calorie Malnutrition N/A Is there a minimum of two criteria No selected? Query Text:Check all the applicable criteria. A minimum of two criteria are recommended for diagnosis of either severe or non-severe malnutrition. Intervention/Recommendation Comments 1. Continue with current diet as ordered. 2. Monitor PO intake, wt, labs and skin integrity 3. F/U as low risk in 7 days, 06/09 Expected Outcomes/Goals Expected Outcomes/Goals 1. PO intake to meet at least 75% of nutritional needs. 2. Wt stability, skin to remain intact, labs to approach WNL.
[2017-06-05] MEDS: Levothyroxine 0.088 Mg Tab PO SCH (06:35)
[2017-06-05] MEDS: Lactobacillus Rhamnosus GG 15 Billion CFU CAP.SPRINK PO SCH (09:16)
[2017-06-05] MEDS: Calcium Carb/Vit D 500 mg/200 U Tab PO SCH ×2 (09:23→18:28)
[2017-06-05] MEDS: Multivitamin w/ Minerals Tab PO SCH (09:23)
--- NOTE | 2017-06-05 13:31 | Progress Notes ---
DATE: 06/05/2017 The patient seen, chart reviewed, discussed with staff. The patient not doing well, highly delusional, paranoid, just keeps repeating "I am , I am , I am ." Refusing medications, believes that she will no longer be able to talk if she takes her medications. Remains isolative, occlusive, repetitious and bizarre. ASSESSMENT: The patient is symptomatic, psychotic, paranoid, believing that she is . PLAN: We will continue to monitor. We will file a [place] petition. The patient refusing her medications. JOB# [id number]
--- NOTE | 2017-06-05 15:56 | Internal Medicine Prog Note ---
Internal Medicine Subjective - Subjective Service Date: 06/05/17 Patient is:: awake, verbal Per staff patient has:: tolerating meds Internal Medicine Objective - Results Result Diagrams: 05/26/17 20:51 05/26/17 20:51 Recent Labs: Laboratory Last Values WBC 9.1 Th/cmm (4.8-10.8) D 05/26/17 20:51 RBC 3.99 Mil/cmm (3.80-5.10) 05/26/17 20:51 Hgb 13.2 gm/dL (12-16) 05/26/17 20:51 Hct 39.2 % (41.0-60) L 05/26/17 20:51 MCV 98.3 fl (81-100) 05/26/17 20:51 MCH 33.0 pg (27.0-31.0) H 05/26/17 20:51 MCHC Differential 33.6 pg (28.0-36.0) 05/26/17 20:51 RDW 13.2 % (11.5-20.0) 05/26/17 20:51 Plt Count 171 Th/cmm (150-400) 05/26/17 20:51 MPV 9.0 fl 05/26/17 20:51 Neutrophils % 64.3 % (40.0-80.0) 05/26/17 20:51 Lymphocytes % 23.9 % (20.0-50.0) 05/26/17 20:51 Monocytes % 10.8 % (2.0-10.0) H 05/26/17 20:51 Eosinophils % 0.9 % (0.0-5.0) 05/26/17 20:51 Basophils % 0.1 % (0.0-2.0) 05/26/17 20:51 Sodium 139 mEq/L (136-145) 05/26/17 20:51 Potassium 3.9 mEq/L (3.5-5.1) 05/26/17 20:51 Chloride 110 mEq/L (98-107) H 05/26/17 20:51 Carbon Dioxide 21.2 mEq/L (21.0-31.0) 05/26/17 20:51 Anion Gap 11.7 (7.0-16.0) 05/26/17 20:51 BUN 10 mg/dL (7-25) 05/26/17 20:51 Creatinine 0.6 mg/dL (0.6-1.2) 05/26/17 20:51 Est GFR ( Amer) > 60.0 ml/min (>90) 05/26/17 20:51 Est GFR (Non-Af Amer) > 60.0 ml/min 05/26/17 20:51 BUN/Creatinine Ratio 16.7 05/26/17 20:51 Glucose 109 mg/dL (70-105) H 05/26/17 20:51 Calcium 8.7 mg/dL (8.6-10.3) 05/26/17 20:51 TSH 3.85 uIU/ml (0.34-5.60) 05/26/17 20:51 Urine Source RANDOM 05/26/17 23:55 Urine Color YELLOW 05/26/17 23:55 Urine Clarity HAZY (CLEAR) 05/26/17 23:55 Urine pH 7.0 (4.6 - 8.0) 05/26/17 23:55 Ur Specific [place] 1.020 (1.005-1.030) 05/26/17 23:55 Urine Protein NEGATIVE mg/dL (NEGATIVE) 05/26/17 23:55 Urine Glucose (UA) NEGATIVE mg/dL (NEGATIVE) 05/26/17 23:55 Urine Ketones TRACE mg/dL (NEGATIVE) 05/26/17 23:55 Urine Blood NEGATIVE (NEGATIVE) 05/26/17 23:55 Urine Nitrate NEGATIVE (NEGATIVE) 05/26/17 23:55 Urine Bilirubin NEGATIVE (NEGATIVE) 05/26/17 23:55 Urine Urobilinogen 0.2 E.U./dL (0.2 - 1.0) 05/26/17 23:55 Ur Leukocyte Esterase SMALL (NEGATIVE) H 05/26/17 23:55 Urine RBC 0-2 /hpf (0-5) 05/26/17 23:55 Urine WBC 10-25 /hpf (0-5) H 05/26/17 23:55 Ur Epithelial Cells MODERATE /lpf (FEW) 05/26/17 23:55 Urine Bacteria MODERATE /hpf (NONE SEEN) H 05/26/17 23:55 Valproic Acid 10.1 ug/mL (50.0-100.0) L 01/30/18 20:51 RPR NONREACTIVE (NONREACTIVE) 05/26/17 20:51 - Physical Exam Vitals and I&O: Vital Signs Temp 98.1 F 06/05/17 05:29 Pulse 64 06/05/17 05:29 Resp 18 06/05/17 05:29 BP 101/60 06/05/17 05:29 Pulse Ox 95 06/05/17 05:29 Intake & Output 06/04/17 06/05/17 06/05/17 18:59 06:59 18:59 Intake Total 120 Balance 120 Intake: Oral 120 Other: # Voids 3 # Bowel Movements 0 Active Medications: Current Medications Acetaminophen (Tylenol) 650 mg PO Q4HR PRN PRN Reason: Pain or Fever >101 Stop: 07/26/17 13:14 Last Admin: 05/28/17 01:41 Dose: 650 mg Acetaminophen/Hydrocodone Bitart ([place] 5mg/325mg) 1 tab PO Q4H PRN PRN Reason: Pain (Severe) Stop: 07/26/17 13:36 Last Admin: 06/04/17 17:18 Dose: 1 tab Al Hydrox/Mg Hydrox/Simethicone (Maalox) 30 ml PO Q4HR PRN PRN Reason: GI DISTRESS Stop: 07/26/17 13:14 Calcium/Vitamin D (Oscal W/Vitamin D) 1 tab PO BID [facility] Stop: 07/26/17 16:59 Last Admin: 06/05/17 09:23 Dose: Not Given Divalproex Sodium (Depakote Er) 500 mg PO Q12HR CRISTINA PRN Reason: Protocol Stop: 08/01/17 20:59 Last Admin: 06/05/17 09:23 Dose: Not Given Docusate Sodium (Colace) 250 mg PO DAILY CRISTINA Stop: 07/27/17 08:59 Last Admin: 06/05/17 09:23 Dose: Not Given Lactobacillus Rhamnosus (Culturelle 15b) 1 each PO DAILY [facility] Stop: 06/09/17 08:59 Last Admin: 06/05/17 09:16 Dose: 1 each Levothyroxine Sodium (Synthroid) 0.088 mg PO QDAC CRISTINA Stop: 07/27/17 07:29 Last Admin: 06/05/17 06:35 Dose: Not Given Lorazepam (Ativan) 0.5 mg PO Q6HR PRN; Protocol PRN Reason: Anxiety Stop: 07/26/17 06:00 Last Admin: 06/05/17 02:42 Dose: 0.5 mg Magnesium Hydroxide (Milk Of Magnesia) 30 ml PO DAILY PRN PRN Reason: Constipation Stop: 07/26/17 13:14 Miscellaneous (Probiotic Screen) 1 ea MC PRN PRN PRN Reason: PROTOCOL Stop: 07/30/17 16:29 Naproxen (Naprosyn) 500 mg PO TID PRN PRN Reason: Pain (Moderate) Stop: 07/26/17 13:14 Last Admin: 06/04/17 09:31 Dose: 500 mg Risperidone (Risperdal) 3 mg PO BID CRISTINA PRN Reason: Protocol Stop: 07/26/17 08:59 Last Admin: 06/05/17 09:23 Dose: Not Given Trazodone HCl (Desyrel) 150 mg PO HS CIRSTINA PRN Reason: Protocol Stop: 07/26/17 20:59 Last Admin: 06/04/17 21:32 Dose: Not Given Zolpidem Tartrate (Ambien) 5 mg PO HS PRN PRN Reason: Insomnia Stop: 07/25/17 22:26 Last Admin: 05/28/17 01:41 Dose: 5 mg General: alert HEENT: NC/AT, PERRLA Neck: Supple Lungs: CTAB Cardiovascular: RRR, Normal S1, Normal S2 Abdomen: soft, non-tender, non-distended, positive bowel sound Neurological: alert Internal Medicine Assmt/Plan - Assessment Assessment: acute uti schizoaffective disorder obesity hypothyroidism - Plan Plan: continue po abx fall precautions continue current plan of care Nutritional Asmnt/Malnutr-PDOC - Dietary Evaluation Malnutrition Findings (Please click <Entered> for more info): Nutritional Asmnt/Malnutrition Start: 06/02/17 18: 50 Text: Status: Complete Freq: Document 06/02/17 18:50 IKER (Rec: 06/02/17 18:53 IKER [email or web address]) Nutritional Asmnt/Malnutrition Patient General Information Nutritional Screening Low Risk Diagnosis psychosis Pertinent Medical Hx/Surgical Hx schizoaffective disorder, opbesity, hypothyroidism Subjective Information Per records, PO intake 25-75%, avg 50%, meeting 100% of nutritional needs. Current Diet Order/ Nutrition Support regular Pertinent Medications oscal w/vit D, colace, culturelle, synthroid Pertinent Labs 05/26 cl 110, glucose 109 Nutritional Hx/Data Height 5 ft 3 in Height (Calculated Centimeters) 160.0 Current Weight (lbs) 150 lb Weight (Calculated Kilograms) 68.0 Weight (Calculated Grams) 92781.9 [place] Body Weight 115 Body Mass Index (BMI) 26.5 Weight Status Obese GI Symptoms GI Symptoms None Last BM no record Difficult in: None Skin Integrity/Comment: intact Estimated Nutritional Goals BEE in Kcals: Adj wt of IBW Calories/Kcals/Kg 25-30 Kcals Calculated 3729-4892 Protein: Adj wt of IBW Protein g/k Protein Calculated 56 Fluid: ml 9511-6136 Nutritional Problem No current Nutrition Prob Problem N/A Malnutrition Alert Protein-Calorie Malnutrition N/A Is there a minimum of two criteria No selected? Query Text:Check all the applicable criteria. A minimum of two criteria are recommended for diagnosis of either severe or non-severe malnutrition. Intervention/Recommendation Comments 1. Continue with current diet as ordered. 2. Monitor PO intake, wt, labs and skin integrity 3. F/U as low risk in 7 days, 06/09 Expected Outcomes/Goals Expected Outcomes/Goals 1. PO intake to meet at least 75% of nutritional needs. 2. Wt stability, skin to remain intact, labs to approach WNL.
[2017-06-06] MEDS: Levothyroxine 0.088 Mg Tab PO SCH (06:38)
[2017-06-06] MEDS: Calcium Carb/Vit D 500 mg/200 U Tab PO SCH ×2 (09:44→17:30)
[2017-06-06] MEDS: Multivitamin w/ Minerals Tab PO SCH (09:46)
[2017-06-06] MEDS: Lactobacillus Rhamnosus GG 15 Billion CFU CAP.SPRINK PO SCH (09:46)
[2017-06-06] MEDS ORDERED: Haloperidol Lactate 5 mg/mL 1mL Vial IM ONE (10:20)
[2017-06-06] MEDS ORDERED: Haloperidol Lactate 5 mg/mL 1mL Vial ONE (10:25)
--- NOTE | 2017-06-06 12:56 | Internal Medicine Prog Note ---
Internal Medicine Subjective - Subjective Patient seen and examined:: with staff, chart reviewed Patient is:: awake, verbal, interactive, in bed Per staff patient has:: no adverse event, no episodes of fall, poor oral intake , tolerating meds Internal Medicine Objective - Results Result Diagrams: 05/26/17 20:51 05/26/17 20:51 Recent Labs: Laboratory Last Values WBC 9.1 Th/cmm (4.8-10.8) D 05/26/17 20:51 RBC 3.99 Mil/cmm (3.80-5.10) 05/26/17 20:51 Hgb 13.2 gm/dL (12-16) 05/26/17 20:51 Hct 39.2 % (41.0-60) L 05/26/17 20:51 MCV 98.3 fl (81-100) 05/26/17 20:51 MCH 33.0 pg (27.0-31.0) H 05/26/17 20:51 MCHC Differential 33.6 pg (28.0-36.0) 05/26/17 20:51 RDW 13.2 % (11.5-20.0) 05/26/17 20:51 Plt Count 171 Th/cmm (150-400) 05/26/17 20:51 MPV 9.0 fl 05/26/17 20:51 Neutrophils % 64.3 % (40.0-80.0) 05/26/17 20:51 Lymphocytes % 23.9 % (20.0-50.0) 05/26/17 20:51 Monocytes % 10.8 % (2.0-10.0) H 05/26/17 20:51 Eosinophils % 0.9 % (0.0-5.0) 05/26/17 20:51 Basophils % 0.1 % (0.0-2.0) 05/26/17 20:51 Sodium 139 mEq/L (136-145) 05/26/17 20:51 Potassium 3.9 mEq/L (3.5-5.1) 05/26/17 20:51 Chloride 110 mEq/L (98-107) H 05/26/17 20:51 Carbon Dioxide 21.2 mEq/L (21.0-31.0) 05/26/17 20:51 Anion Gap 11.7 (7.0-16.0) 05/26/17 20:51 BUN 10 mg/dL (7-25) 05/26/17 20:51 Creatinine 0.6 mg/dL (0.6-1.2) 05/26/17 20:51 Est GFR ( Amer) > 60.0 ml/min (>90) 05/26/17 20:51 Est GFR (Non-Af Amer) > 60.0 ml/min 05/26/17 20:51 BUN/Creatinine Ratio 16.7 05/26/17 20:51 Glucose 109 mg/dL (70-105) H 05/26/17 20:51 Calcium 8.7 mg/dL (8.6-10.3) 05/26/17 20:51 TSH 3.85 uIU/ml (0.34-5.60) 05/26/17 20:51 Urine Source RANDOM 05/26/17 23:55 Urine Color YELLOW 05/26/17 23:55 Urine Clarity HAZY (CLEAR) 05/26/17 23:55 Urine pH 7.0 (4.6 - 8.0) 05/26/17 23:55 Ur Specific [place] 1.020 (1.005-1.030) 05/26/17 23:55 Urine Protein NEGATIVE mg/dL (NEGATIVE) 05/26/17 23:55 Urine Glucose (UA) NEGATIVE mg/dL (NEGATIVE) 05/26/17 23:55 Urine Ketones TRACE mg/dL (NEGATIVE) 05/26/17 23:55 Urine Blood NEGATIVE (NEGATIVE) 05/26/17 23:55 Urine Nitrate NEGATIVE (NEGATIVE) 05/26/17 23:55 Urine Bilirubin NEGATIVE (NEGATIVE) 05/26/17 23:55 Urine Urobilinogen 0.2 E.U./dL (0.2 - 1.0) 05/26/17 23:55 Ur Leukocyte Esterase SMALL (NEGATIVE) H 05/26/17 23:55 Urine RBC 0-2 /hpf (0-5) 05/26/17 23:55 Urine WBC 10-25 /hpf (0-5) H 05/26/17 23:55 Ur Epithelial Cells MODERATE /lpf (FEW) 05/26/17 23:55 Urine Bacteria MODERATE /hpf (NONE SEEN) H 05/26/17 23:55 Valproic Acid 10.1 ug/mL (50.0-100.0) L 05/26/17 20:51 RPR NONREACTIVE (NONREACTIVE) 05/26/17 20:51 - Physical Exam Vitals and I&O: Vital Signs Temp 98.0 F 06/06/17 06:19 Pulse 72 06/06/17 06:19 Resp 18 06/06/17 06:19 BP 108/70 06/06/17 06:19 Pulse Ox 94 06/06/17 06:19 Active Medications: Current Medications Acetaminophen (Tylenol) 650 mg PO Q4HR PRN PRN Reason: Pain or Fever >101 Stop: 07/26/17 13:14 Last Admin: 05/28/17 01:41 Dose: 650 mg Acetaminophen/Hydrocodone Bitart ([place] 5mg/325mg) 1 tab PO Q4H PRN PRN Reason: Pain (Severe) Stop: 07/26/17 13:36 Last Admin: 06/04/17 17:18 Dose: 1 tab Al Hydrox/Mg Hydrox/Simethicone (Maalox) 30 ml PO Q4HR PRN PRN Reason: GI DISTRESS Stop: 07/26/17 13:14 Calcium/Vitamin D (Oscal W/Vitamin D) 1 tab PO BID [facility] Stop: 07/26/17 16:59 Last Admin: 06/06/17 09:44 Dose: Not Given Divalproex Sodium (Depakote Er) 500 mg PO Q12HR [facility] PRN Reason: Protocol Stop: 08/01/17 20:59 Last Admin: 06/06/17 09:45 Dose: Not Given Docusate Sodium (Colace) 250 mg PO DAILY [facility] Stop: 07/27/17 08:59 Last Admin: 06/06/17 09:45 Dose: Not Given Lactobacillus Rhamnosus (Culturelle 15b) 1 each PO DAILY [facility] Stop: 06/09/17 08:59 Last Admin: 06/06/17 09:46 Dose: Not Given Levothyroxine Sodium (Synthroid) 0.088 mg PO QDAC [facility] Stop: 07/27/17 07:29 Last Admin: 06/06/17 06:38 Dose: 0.088 mg Lorazepam (Ativan) 0.5 mg PO Q6HR PRN; Protocol PRN Reason: Anxiety Stop: 07/26/17 06:00 Last Admin: 06/05/17 02:42 Dose: 0.5 mg Magnesium Hydroxide (Milk Of Magnesia) 30 ml PO DAILY PRN PRN Reason: Constipation Stop: 07/26/17 13:14 Miscellaneous (Probiotic Screen) 1 ea MC PRN PRN PRN Reason: PROTOCOL Stop: 07/30/17 16:29 Naproxen (Naprosyn) 500 mg PO TID PRN PRN Reason: Pain (Moderate) Stop: 07/26/17 13:14 Last Admin: 06/06/17 07:06 Dose: 500 mg Risperidone (Risperdal) 3 mg PO BID [facility] PRN Reason: Protocol Stop: 07/26/17 08:59 Last Admin: 06/06/17 09:46 Dose: Not Given Trazodone HCl (Desyrel) 150 mg PO HS [facility] PRN Reason: Protocol Stop: 07/26/17 20:59 Last Admin: 06/05/17 21:45 Dose: Not Given Zolpidem Tartrate (Ambien) 5 mg PO HS PRN PRN Reason: Insomnia Stop: 07/25/17 22:26 Last Admin: 05/28/17 01:41 Dose: 5 mg General: demented HEENT: NC/AT, PERRLA Neck: Supple Lungs: CTAB Cardiovascular: RRR, Normal S1, Normal S2 Abdomen: soft, non-tender, thin, non-distended, positive bowel sound Extremities: deformity Neurological: no change, disorganized Internal Medicine Assmt/Plan - Assessment Assessment: - Assessment Assessment: acute uti schizoaffective disorder obesity hypothyroidism - Plan Plan: continue po abx fall precautions continue current plan of care - Plan Plan: cpm Nutritional Asmnt/Malnutr-PDOC - Dietary Evaluation Malnutrition Findings (Please click <Entered> for more info): Nutritional Asmnt/Malnutrition Start: 06/02/17 18: 50 Text: Status: Complete Freq: Document 06/02/17 18:50 IKER (Rec: 06/02/17 18:53 IKER [id number]) Nutritional Asmnt/Malnutrition Patient General Information Nutritional Screening Low Risk Diagnosis psychosis Pertinent Medical Hx/Surgical Hx schizoaffective disorder, opbesity, hypothyroidism Subjective Information Per records, PO intake 25-75%, avg 50%, meeting 100% of nutritional needs. Current Diet Order/ Nutrition Support regular Pertinent Medications oscal w/vit D, colace, culturelle, synthroid Pertinent Labs 05/26 cl 110, glucose 109 Nutritional Hx/Data Height 1.6 m Height (Calculated Centimeters) 160.0 Current Weight (lbs) 68.039 kg Weight (Calculated Kilograms) 68.0 Weight (Calculated Grams) 46141.9 [place] Body Weight 115 Body Mass Index (BMI) 26.5 Weight Status Obese GI Symptoms GI Symptoms None Last BM no record Difficult in: None Skin Integrity/Comment: intact Estimated Nutritional Goals BEE in Kcals: Adj wt of IBW Calories/Kcals/Kg 25-30 Kcals Calculated 5106-7225 Protein: Adj wt of IBW Protein g/k Protein Calculated 56 Fluid: ml 4680-0652 Nutritional Problem No current Nutrition Prob Problem N/A Malnutrition Alert Protein-Calorie Malnutrition N/A Is there a minimum of two criteria No selected? Query Text:Check all the applicable criteria. A minimum of two criteria are recommended for diagnosis of either severe or non-severe malnutrition. Intervention/Recommendation Comments 1. Continue with current diet as ordered. 2. Monitor PO intake, wt, labs and skin integrity 3. F/U as low risk in 7 days, 06/09 Expected Outcomes/Goals Expected Outcomes/Goals 1. PO intake to meet at least 75% of nutritional needs. 2. Wt stability, skin to remain intact, labs to approach WNL.
--- NOTE | 2017-06-06 19:57 | Progress Notes ---
DATE: 06/06/2017 SUBJECTIVE: The patient is highly delusional, more paranoid, rambling, nonsensical, poor historian, throwing water on the ground, unruly behaviors. Staff had to move her into the higher acuity unit. The patient talking to herself, highly psychotic more often now, refusing medications. ASSESSMENT: The patient remains symptomatic, not sleeping well, paranoid, rambling, believing that she is , highly delusional. PLAN: [place] petition was filed, a court date set for this upcoming Thursday. JOB# [id number]
[2017-06-07] MEDS: Levothyroxine 0.088 Mg Tab PO SCH (06:43)
--- NOTE | 2017-06-07 07:58 | Progress Notes ---
DATE: 06/07/2017 SUBJECTIVE: The patient seen on 06/07/2017. The patient remains symptomatic, still with ongoing psychotic symptoms, mumbling to self, refusing treatment and talking about being , stating "SOS," throwing water on the ground, highly unruly, internally preoccupied. Staff concerned given her behaviors. She remains bizarre. Medications were reviewed, but she is refusing. ASSESSMENT: The patient remains symptomatic, poor sleep, paranoid, rambling, disorganized, delusional. PLAN: [place] petition was filed. Court date will be set for this Thursday. She has been refusing medications. We will monitor and follow up and we are watching the patient quite closely and trying to redirect. JOB# [id number]
[2017-06-07] MEDS: Lactobacillus Rhamnosus GG 15 Billion CFU CAP.SPRINK PO SCH (09:17)
[2017-06-07] MEDS: Calcium Carb/Vit D 500 mg/200 U Tab PO SCH ×3 (09:17→18:41)
[2017-06-07] MEDS: Multivitamin w/ Minerals Tab PO SCH (09:17)
--- NOTE | 2017-06-07 12:34 | Internal Medicine Prog Note ---
Internal Medicine Subjective - Subjective Patient seen and examined:: with staff, chart reviewed Patient is:: awake, verbal, interactive, in bed Per staff patient has:: no adverse event, no episodes of fall, poor oral intake , tolerating meds Internal Medicine Objective - Results Result Diagrams: 05/26/17 20:51 05/26/17 20:51 Recent Labs: Laboratory Last Values WBC 9.1 Th/cmm (4.8-10.8) D 05/26/17 20:51 RBC 3.99 Mil/cmm (3.80-5.10) 05/26/17 20:51 Hgb 13.2 gm/dL (12-16) 05/26/17 20:51 Hct 39.2 % (41.0-60) L 05/26/17 20:51 MCV 98.3 fl (81-100) 05/26/17 20:51 MCH 33.0 pg (27.0-31.0) H 05/26/17 20:51 MCHC Differential 33.6 pg (28.0-36.0) 05/26/17 20:51 RDW 13.2 % (11.5-20.0) 05/26/17 20:51 Plt Count 171 Th/cmm (150-400) 05/26/17 20:51 MPV 9.0 fl 05/26/17 20:51 Neutrophils % 64.3 % (40.0-80.0) 05/26/17 20:51 Lymphocytes % 23.9 % (20.0-50.0) 05/26/17 20:51 Monocytes % 10.8 % (2.0-10.0) H 05/26/17 20:51 Eosinophils % 0.9 % (0.0-5.0) 05/26/17 20:51 Basophils % 0.1 % (0.0-2.0) 05/26/17 20:51 Sodium 139 mEq/L (136-145) 05/26/17 20:51 Potassium 3.9 mEq/L (3.5-5.1) 05/26/17 20:51 Chloride 110 mEq/L (98-107) H 05/26/17 20:51 Carbon Dioxide 21.2 mEq/L (21.0-31.0) 05/26/17 20:51 Anion Gap 11.7 (7.0-16.0) 05/26/17 20:51 BUN 10 mg/dL (7-25) 05/26/17 20:51 Creatinine 0.6 mg/dL (0.6-1.2) 05/26/17 20:51 Est GFR ( Amer) > 60.0 ml/min (>90) 05/26/17 20:51 Est GFR (Non-Af Amer) > 60.0 ml/min 05/26/17 20:51 BUN/Creatinine Ratio 16.7 05/26/17 20:51 Glucose 109 mg/dL (70-105) H 05/26/17 20:51 Calcium 8.7 mg/dL (8.6-10.3) 05/26/17 20:51 TSH 3.85 uIU/ml (0.34-5.60) 05/26/17 20:51 Urine Source RANDOM 05/26/17 23:55 Urine Color YELLOW 05/26/17 23:55 Urine Clarity HAZY (CLEAR) 05/26/17 23:55 Urine pH 7.0 (4.6 - 8.0) 05/26/17 23:55 Ur Specific [place] 1.020 (1.005-1.030) 05/26/17 23:55 Urine Protein NEGATIVE mg/dL (NEGATIVE) 05/26/17 23:55 Urine Glucose (UA) NEGATIVE mg/dL (NEGATIVE) 05/26/17 23:55 Urine Ketones TRACE mg/dL (NEGATIVE) 05/26/17 23:55 Urine Blood NEGATIVE (NEGATIVE) 05/26/17 23:55 Urine Nitrate NEGATIVE (NEGATIVE) 05/26/17 23:55 Urine Bilirubin NEGATIVE (NEGATIVE) 05/26/17 23:55 Urine Urobilinogen 0.2 E.U./dL (0.2 - 1.0) 05/26/17 23:55 Ur Leukocyte Esterase SMALL (NEGATIVE) H 05/26/17 23:55 Urine RBC 0-2 /hpf (0-5) 05/26/17 23:55 Urine WBC 10-25 /hpf (0-5) H 05/26/17 23:55 Ur Epithelial Cells MODERATE /lpf (FEW) 05/26/17 23:55 Urine Bacteria MODERATE /hpf (NONE SEEN) H 05/26/17 23:55 Valproic Acid 10.1 ug/mL (50.0-100.0) L 05/26/17 20:51 RPR NONREACTIVE (NONREACTIVE) 05/26/17 20:51 - Physical Exam Vitals and I&O: Vital Signs Temp 98.7 F 06/07/17 05:25 Pulse 52 06/07/17 05:25 Resp 20 06/07/17 05:25 BP 102/65 06/07/17 05:25 Pulse Ox 98 06/07/17 05:25 Intake & Output 06/06/17 06/07/17 06/07/17 18:59 06:59 18:59 Intake Total 1200 120 Balance 1200 120 Intake: Oral 1200 120 Other: # Voids 3 3 # Bowel Movements 0 Active Medications: Current Medications Acetaminophen (Tylenol) 650 mg PO Q4HR PRN PRN Reason: Pain or Fever >101 Stop: 07/26/17 13:14 Last Admin: 05/28/17 01:41 Dose: 650 mg Acetaminophen/Hydrocodone Bitart ([place] 5mg/325mg) 1 tab PO Q4H PRN PRN Reason: Pain (Severe) Stop: 07/26/17 13:36 Last Admin: 06/04/17 17:18 Dose: 1 tab Al Hydrox/Mg Hydrox/Simethicone (Maalox) 30 ml PO Q4HR PRN PRN Reason: GI DISTRESS Stop: 07/26/17 13:14 Calcium/Vitamin D (Oscal W/Vitamin D) 1 tab PO BID [facility] Stop: 07/26/17 16:59 Last Admin: 06/07/17 09:17 Dose: 1 tab Divalproex Sodium (Depakote Er) 500 mg PO Q12HR [facility]STINA PRN Reason: Protocol Stop: 08/01/17 20:59 Last Admin: 06/07/17 09:17 Dose: 500 mg Docusate Sodium (Colace) 250 mg PO DAILY [facility] Stop: 07/27/17 08:59 Last Admin: 06/07/17 09:17 Dose: 250 mg Lactobacillus Rhamnosus (Culturelle 15b) 1 each PO DAILY [facility] Stop: 06/09/17 08:59 Last Admin: 06/07/17 09:17 Dose: 1 each Levothyroxine Sodium (Synthroid) 0.088 mg PO QDAC [facility] Stop: 07/27/17 07:29 Last Admin: 06/07/17 06:43 Dose: 0.088 mg Lorazepam (Ativan) 0.5 mg PO Q6HR PRN; Protocol PRN Reason: Anxiety Stop: 07/26/17 06:00 Last Admin: 06/05/17 02:42 Dose: 0.5 mg Magnesium Hydroxide (Milk Of Magnesia) 30 ml PO DAILY PRN PRN Reason: Constipation Stop: 07/26/17 13:14 Miscellaneous (Probiotic Screen) 1 ea MC PRN PRN PRN Reason: PROTOCOL Stop: 07/30/17 16:29 Naproxen (Naprosyn) 500 mg PO TID PRN PRN Reason: Pain (Moderate) Stop: 07/26/17 13:14 Last Admin: 06/06/17 07:06 Dose: 500 mg Risperidone (Risperdal) 3 mg PO BID [facility] PRN Reason: Protocol Stop: 07/26/17 08:59 Last Admin: 06/07/17 09:17 Dose: 3 mg Trazodone HCl (Desyrel) 150 mg PO HS [facility]INA PRN Reason: Protocol Stop: 07/26/17 20:59 Last Admin: 06/06/17 21:55 Dose: Not Given Zolpidem Tartrate (Ambien) 5 mg PO HS PRN PRN Reason: Insomnia Stop: 07/25/17 22:26 Last Admin: 05/28/17 01:41 Dose: 5 mg General: demented HEENT: NC/AT, PERRLA Neck: Supple Lungs: CTAB Cardiovascular: RRR, Normal S1, Normal S2 Abdomen: soft, non-tender, thin, non-distended, positive bowel sound Extremities: deformity Neurological: no change, disorganized Internal Medicine Assmt/Plan - Assessment Assessment: - Assessment Assessment: acute uti schizoaffective disorder obesity hypothyroidism - Plan Plan: continue po abx fall precautions continue current plan of care - Plan Plan: cpm Nutritional Asmnt/Malnutr-PDOC - Dietary Evaluation Malnutrition Findings (Please click <Entered> for more info): Nutritional Asmnt/Malnutrition Start: 06/02/17 18: 50 Text: Status: Complete Freq: Document 06/02/17 18:50 IKER (Rec: 06/02/17 18:53 IKER [email or web address]) Nutritional Asmnt/Malnutrition Patient General Information Nutritional Screening Low Risk Diagnosis psychosis Pertinent Medical Hx/Surgical Hx schizoaffective disorder, opbesity, hypothyroidism Subjective Information Per records, PO intake 25-75%, avg 50%, meeting 100% of nutritional needs. Current Diet Order/ Nutrition Support regular Pertinent Medications oscal w/vit D, colace, culturelle, synthroid Pertinent Labs 05/26 cl 110, glucose 109 Nutritional Hx/Data Height 1.6 m Height (Calculated Centimeters) 160.0 Current Weight (lbs) 68.039 kg Weight (Calculated Kilograms) 68.0 Weight (Calculated Grams) 00513.9 [place] Body Weight 115 Body Mass Index (BMI) 26.5 Weight Status Obese GI Symptoms GI Symptoms None Last BM no record Difficult in: None Skin Integrity/Comment: intact Estimated Nutritional Goals BEE in Kcals: Adj wt of IBW Calories/Kcals/Kg 25-30 Kcals Calculated 5854-2813 Protein: Adj wt of IBW Protein g/k Protein Calculated 56 Fluid: ml 2494-4639 Nutritional Problem No current Nutrition Prob Problem N/A Malnutrition Alert Protein-Calorie Malnutrition N/A Is there a minimum of two criteria No selected? Query Text:Check all the applicable criteria. A minimum of two criteria are recommended for diagnosis of either severe or non-severe malnutrition. Intervention/Recommendation Comments 1. Continue with current diet as ordered. 2. Monitor PO intake, wt, labs and skin integrity 3. F/U as low risk in 7 days, 06/09 Expected Outcomes/Goals Expected Outcomes/Goals 1. PO intake to meet at least 75% of nutritional needs. 2. Wt stability, skin to remain intact, labs to approach WNL.
[2017-06-08] MEDS: Levothyroxine 0.088 Mg Tab PO SCH (06:46)
--- NOTE | 2017-06-08 09:20 | Internal Medicine Prog Note ---
Internal Medicine Subjective - Subjective Service Date: 06/08/17 Patient is:: awake, verbal, interactive, in bed Per staff patient has:: no adverse event, no episodes of fall, poor oral intake , tolerating meds Internal Medicine Objective - Results Result Diagrams: 05/26/17 20:51 05/26/17 20:51 Recent Labs: Laboratory Last Values WBC 9.1 Th/cmm (4.8-10.8) D 05/26/17 20:51 RBC 3.99 Mil/cmm (3.80-5.10) 05/26/17 20:51 Hgb 13.2 gm/dL (12-16) 05/26/17 20:51 Hct 39.2 % (41.0-60) L 05/26/17 20:51 MCV 98.3 fl (81-100) 05/26/17 20:51 MCH 33.0 pg (27.0-31.0) H 05/26/17 20:51 MCHC Differential 33.6 pg (28.0-36.0) 05/26/17 20:51 RDW 13.2 % (11.5-20.0) 05/26/17 20:51 Plt Count 171 Th/cmm (150-400) 05/26/17 20:51 MPV 9.0 fl 05/26/17 20:51 Neutrophils % 64.3 % (40.0-80.0) 05/26/17 20:51 Lymphocytes % 23.9 % (20.0-50.0) 05/26/17 20:51 Monocytes % 10.8 % (2.0-10.0) H 05/26/17 20:51 Eosinophils % 0.9 % (0.0-5.0) 05/26/17 20:51 Basophils % 0.1 % (0.0-2.0) 05/26/17 20:51 Sodium 139 mEq/L (136-145) 05/26/17 20:51 Potassium 3.9 mEq/L (3.5-5.1) 05/26/17 20:51 Chloride 110 mEq/L (98-107) H 05/26/17 20:51 Carbon Dioxide 21.2 mEq/L (21.0-31.0) 05/26/17 20:51 Anion Gap 11.7 (7.0-16.0) 05/26/17 20:51 BUN 10 mg/dL (7-25) 05/26/17 20:51 Creatinine 0.6 mg/dL (0.6-1.2) 05/26/17 20:51 Est GFR ( Amer) > 60.0 ml/min (>90) 05/26/17 20:51 Est GFR (Non-Af Amer) > 60.0 ml/min 05/26/17 20:51 BUN/Creatinine Ratio 16.7 05/26/17 20:51 Glucose 109 mg/dL (70-105) H 05/26/17 20:51 Calcium 8.7 mg/dL (8.6-10.3) 05/26/17 20:51 TSH 3.85 uIU/ml (0.34-5.60) 05/26/17 20:51 Urine Source RANDOM 05/26/17 23:55 Urine Color YELLOW 05/26/17 23:55 Urine Clarity HAZY (CLEAR) 05/26/17 23:55 Urine pH 7.0 (4.6 - 8.0) 05/26/17 23:55 Ur Specific [place] 1.020 (1.005-1.030) 05/26/17 23:55 Urine Protein NEGATIVE mg/dL (NEGATIVE) 05/26/17 23:55 Urine Glucose (UA) NEGATIVE mg/dL (NEGATIVE) 05/26/17 23:55 Urine Ketones TRACE mg/dL (NEGATIVE) 05/26/17 23:55 Urine Blood NEGATIVE (NEGATIVE) 05/26/17 23:55 Urine Nitrate NEGATIVE (NEGATIVE) 05/26/17 23:55 Urine Bilirubin NEGATIVE (NEGATIVE) 05/26/17 23:55 Urine Urobilinogen 0.2 E.U./dL (0.2 - 1.0) 05/26/17 23:55 Ur Leukocyte Esterase SMALL (NEGATIVE) H 05/26/17 23:55 Urine RBC 0-2 /hpf (0-5) 05/26/17 23:55 Urine WBC 10-25 /hpf (0-5) H 05/26/17 23:55 Ur Epithelial Cells MODERATE /lpf (FEW) 05/26/17 23:55 Urine Bacteria MODERATE /hpf (NONE SEEN) H 05/26/17 23:55 Valproic Acid 10.1 ug/mL (50.0-100.0) L 05/26/17 20:51 RPR NONREACTIVE (NONREACTIVE) 05/26/17 20:51 - Physical Exam Vitals and I&O: Vital Signs Temp 99.2 F 06/08/17 05:10 Pulse 74 06/08/17 05:10 Resp 18 06/08/17 05:10 BP 107/66 06/08/17 05:10 Pulse Ox 94 06/08/17 05:10 Intake & Output 06/07/17 06/08/17 06/08/17 18:59 06:59 18:59 Intake Total 480 Balance 480 Intake: Oral 480 Other: # Voids 0 Active Medications: Current Medications Acetaminophen (Tylenol) 650 mg PO Q4HR PRN PRN Reason: Pain or Fever >101 Stop: 07/26/17 13:14 Last Admin: 05/28/17 01:41 Dose: 650 mg Acetaminophen/Hydrocodone Bitart ([place] 5mg/325mg) 1 tab PO Q4H PRN PRN Reason: Pain (Severe) Stop: 07/26/17 13:36 Last Admin: 06/04/17 17:18 Dose: 1 tab Al Hydrox/Mg Hydrox/Simethicone (Maalox) 30 ml PO Q4HR PRN PRN Reason: GI DISTRESS Stop: 07/26/17 13:14 Calcium/Vitamin D (Oscal W/Vitamin D) 1 tab PO BID [facility] Stop: 07/26/17 16:59 Last Admin: 06/07/17 18:41 Dose: Not Given Divalproex Sodium (Depakote Er) 500 mg PO Q12HR [facility]RISTINA PRN Reason: Protocol Stop: 08/01/17 20:59 Last Admin: 06/07/17 21:18 Dose: Not Given Docusate Sodium (Colace) 250 mg PO DAILY [facility] Stop: 07/27/17 08:59 Last Admin: 06/07/17 09:17 Dose: 250 mg Lactobacillus Rhamnosus (Culturelle 15b) 1 each PO DAILY [facility] Stop: 06/09/17 08:59 Last Admin: 06/07/17 09:17 Dose: 1 each Levothyroxine Sodium (Synthroid) 0.088 mg PO QDAC [facility] Stop: 07/27/17 07:29 Last Admin: 06/08/17 06:46 Dose: Not Given Lorazepam (Ativan) 0.5 mg PO Q6HR PRN; Protocol PRN Reason: Anxiety Stop: 07/26/17 06:00 Last Admin: 06/08/17 00:22 Dose: 0.5 mg Magnesium Hydroxide (Milk Of Magnesia) 30 ml PO DAILY PRN PRN Reason: Constipation Stop: 07/26/17 13:14 Miscellaneous (Probiotic Screen) 1 ea MC PRN PRN PRN Reason: PROTOCOL Stop: 07/30/17 16:29 Naproxen (Naprosyn) 500 mg PO TID PRN PRN Reason: Pain (Moderate) Stop: 07/26/17 13:14 Last Admin: 06/06/17 07:06 Dose: 500 mg Risperidone (Risperdal) 3 mg PO BID [facility]INA PRN Reason: Protocol Stop: 07/26/17 08:59 Last Admin: 06/07/17 18:44 Dose: Not Given Trazodone HCl (Desyrel) 150 mg PO HS [facility]RISTINA PRN Reason: Protocol Stop: 07/26/17 20:59 Last Admin: 06/07/17 21:19 Dose: Not Given Zolpidem Tartrate (Ambien) 5 mg PO HS PRN PRN Reason: Insomnia Stop: 07/25/17 22:26 Last Admin: 05/28/17 01:41 Dose: 5 mg General: demented HEENT: NC/AT, PERRLA Neck: Supple Lungs: CTAB Cardiovascular: RRR, Normal S1, Normal S2 Abdomen: soft, non-tender, thin, non-distended, positive bowel sound Extremities: deformity Neurological: no change, disorganized Internal Medicine Assmt/Plan - Assessment Assessment: acute uti schizoaffective disorder obesity hypothyroidism - Plan Plan: continue po abx fall precautions continue current plan of care Nutritional Asmnt/Malnutr-PDOC - Dietary Evaluation Malnutrition Findings (Please click <Entered> for more info): Nutritional Asmnt/Malnutrition Start: 06/02/17 18: 50 Text: Status: Complete Freq: Document 06/02/17 18:50 IKER (Rec: 06/02/17 18:53 IKER [id number]) Nutritional Asmnt/Malnutrition Patient General Information Nutritional Screening Low Risk Diagnosis psychosis Pertinent Medical Hx/Surgical Hx schizoaffective disorder, opbesity, hypothyroidism Subjective Information Per records, PO intake 25-75%, avg 50%, meeting 100% of nutritional needs. Current Diet Order/ Nutrition Support regular Pertinent Medications oscal w/vit D, colace, culturelle, synthroid Pertinent Labs 05/26 cl 110, glucose 109 Nutritional Hx/Data Height 5 ft 3 in Height (Calculated Centimeters) 160.0 Current Weight (lbs) 150 lb Weight (Calculated Kilograms) 68.0 Weight (Calculated Grams) 56523.9 [place] Body Weight 115 Body Mass Index (BMI) 26.5 Weight Status Obese GI Symptoms GI Symptoms None Last BM no record Difficult in: None Skin Integrity/Comment: intact Estimated Nutritional Goals BEE in Kcals: Adj wt of IBW Calories/Kcals/Kg 25-30 Kcals Calculated 2198-7773 Protein: Adj wt of IBW Protein g/k Protein Calculated 56 Fluid: ml 2480-7341 Nutritional Problem No current Nutrition Prob Problem N/A Malnutrition Alert Protein-Calorie Malnutrition N/A Is there a minimum of two criteria No selected? Query Text:Check all the applicable criteria. A minimum of two criteria are recommended for diagnosis of either severe or non-severe malnutrition. Intervention/Recommendation Comments 1. Continue with current diet as ordered. 2. Monitor PO intake, wt, labs and skin integrity 3. F/U as low risk in 7 days, 06/09 Expected Outcomes/Goals Expected Outcomes/Goals 1. PO intake to meet at least 75% of nutritional needs. 2. Wt stability, skin to remain intact, labs to approach WNL.
[2017-06-08] MEDS: Lactobacillus Rhamnosus GG 15 Billion CFU CAP.SPRINK PO SCH (09:45)
[2017-06-08] MEDS: Multivitamin w/ Minerals Tab PO SCH (09:46)
[2017-06-08] MEDS: Calcium Carb/Vit D 500 mg/200 U Tab PO SCH ×2 (09:46→17:30)
[2017-06-09] MEDS: Levothyroxine 0.088 Mg Tab PO SCH (06:56)
--- NOTE | 2017-06-09 08:00 | Progress Notes ---
DATE: 06/08/2017 The patient remains bizarre, internally preoccupied, selectively mute, decompensating, unruly behaviors, gravely disabled, refusing treatment, decompensating from a psychiatric perspective. Medications reviewed, but refusing. ASSESSMENT: The patient remains symptomatic, disoriented, disorganized, more psychotic. PLAN: [place] petition tomorrow at 9:30. The patient is not safe for discharge. [facility]# [id number]
[2017-06-09] MEDS: Calcium Carb/Vit D 500 mg/200 U Tab PO SCH ×2 (08:37→16:32)
[2017-06-09] MEDS: Multivitamin w/ Minerals Tab PO SCH (08:38)
--- NOTE | 2017-06-09 12:14 | Internal Medicine Prog Note ---
Internal Medicine Subjective - Subjective Service Date: 06/09/17 Patient is:: awake, verbal, interactive, in bed Per staff patient has:: no adverse event, no episodes of fall, poor oral intake , tolerating meds Internal Medicine Objective - Results Result Diagrams: 05/26/17 20:51 05/26/17 20:51 Recent Labs: Laboratory Last Values WBC 9.1 Th/cmm (4.8-10.8) D 05/26/17 20:51 RBC 3.99 Mil/cmm (3.80-5.10) 05/26/17 20:51 Hgb 13.2 gm/dL (12-16) 05/26/17 20:51 Hct 39.2 % (41.0-60) L 05/26/17 20:51 MCV 98.3 fl (81-100) 05/26/17 20:51 MCH 33.0 pg (27.0-31.0) H 05/26/17 20:51 MCHC Differential 33.6 pg (28.0-36.0) 05/26/17 20:51 RDW 13.2 % (11.5-20.0) 05/26/17 20:51 Plt Count 171 Th/cmm (150-400) 05/26/17 20:51 MPV 9.0 fl 05/26/17 20:51 Neutrophils % 64.3 % (40.0-80.0) 05/26/17 20:51 Lymphocytes % 23.9 % (20.0-50.0) 05/26/17 20:51 Monocytes % 10.8 % (2.0-10.0) H 05/26/17 20:51 Eosinophils % 0.9 % (0.0-5.0) 05/26/17 20:51 Basophils % 0.1 % (0.0-2.0) 05/26/17 20:51 Sodium 139 mEq/L (136-145) 05/26/17 20:51 Potassium 3.9 mEq/L (3.5-5.1) 05/26/17 20:51 Chloride 110 mEq/L (98-107) H 05/26/17 20:51 Carbon Dioxide 21.2 mEq/L (21.0-31.0) 05/26/17 20:51 Anion Gap 11.7 (7.0-16.0) 05/26/17 20:51 BUN 10 mg/dL (7-25) 05/26/17 20:51 Creatinine 0.6 mg/dL (0.6-1.2) 05/26/17 20:51 Est GFR ( Amer) > 60.0 ml/min (>90) 05/26/17 20:51 Est GFR (Non-Af Amer) > 60.0 ml/min 05/26/17 20:51 BUN/Creatinine Ratio 16.7 05/26/17 20:51 Glucose 109 mg/dL (70-105) H 05/26/17 20:51 Calcium 8.7 mg/dL (8.6-10.3) 05/26/17 20:51 TSH 3.85 uIU/ml (0.34-5.60) 05/26/17 20:51 Urine Source RANDOM 05/26/17 23:55 Urine Color YELLOW 05/26/17 23:55 Urine Clarity HAZY (CLEAR) 05/26/17 23:55 Urine pH 7.0 (4.6 - 8.0) 05/26/17 23:55 Ur Specific [place] 1.020 (1.005-1.030) 05/26/17 23:55 Urine Protein NEGATIVE mg/dL (NEGATIVE) 05/26/17 23:55 Urine Glucose (UA) NEGATIVE mg/dL (NEGATIVE) 05/26/17 23:55 Urine Ketones TRACE mg/dL (NEGATIVE) 05/26/17 23:55 Urine Blood NEGATIVE (NEGATIVE) 05/26/17 23:55 Urine Nitrate NEGATIVE (NEGATIVE) 05/26/17 23:55 Urine Bilirubin NEGATIVE (NEGATIVE) 05/26/17 23:55 Urine Urobilinogen 0.2 E.U./dL (0.2 - 1.0) 05/26/17 23:55 Ur Leukocyte Esterase SMALL (NEGATIVE) H 05/26/17 23:55 Urine RBC 0-2 /hpf (0-5) 05/26/17 23:55 Urine WBC 10-25 /hpf (0-5) H 05/26/17 23:55 Ur Epithelial Cells MODERATE /lpf (FEW) 05/26/17 23:55 Urine Bacteria MODERATE /hpf (NONE SEEN) H 05/26/17 23:55 Valproic Acid 10.1 ug/mL (50.0-100.0) L 05/26/17 20:51 RPR NONREACTIVE (NONREACTIVE) 05/26/17 20:51 - Physical Exam Vitals and I&O: Vital Signs Temp 98.0 F 06/09/17 06:30 Pulse 82 06/09/17 06:30 Resp 20 06/09/17 06:30 BP 127/68 06/09/17 06:30 Pulse Ox 92 06/09/17 06:30 Active Medications: Current Medications Acetaminophen (Tylenol) 650 mg PO Q4HR PRN PRN Reason: Pain or Fever >101 Stop: 07/26/17 13:14 Last Admin: 06/09/17 10:42 Dose: 650 mg Acetaminophen/Hydrocodone Bitart ([place] 5mg/325mg) 1 tab PO Q4H PRN PRN Reason: Pain (Severe) Stop: 07/26/17 13:36 Last Admin: 06/04/17 17:18 Dose: 1 tab Al Hydrox/Mg Hydrox/Simethicone (Maalox) 30 ml PO Q4HR PRN PRN Reason: GI DISTRESS Stop: 07/26/17 13:14 Benztropine Mesylate (Cogentin) 1 mg PO BID [facility] Stop: 08/08/17 10:29 Last Admin: 06/09/17 10:42 Dose: 1 mg Calcium/Vitamin D (Oscal W/Vitamin D) 1 tab PO BID CRISTINA Stop: 07/26/17 16:59 Last Admin: 06/09/17 08:37 Dose: 1 tab Divalproex Sodium (Depakote Er) 500 mg PO Q12HR CRISTINA PRN Reason: Protocol Stop: 08/01/17 20:59 Last Admin: 06/09/17 08:38 Dose: 500 mg Docusate Sodium (Colace) 250 mg PO DAILY [facility] Stop: 07/27/17 08:59 Last Admin: 06/09/17 08:38 Dose: 250 mg Haloperidol (Haldol) 5 mg PO BID C[facility]STINA PRN Reason: Protocol Stop: 08/08/17 16:59 Haloperidol Decanoate (Haldol Dec) 50 mg IM QMONTH CRISTINA PRN Reason: Protocol Stop: 08/08/17 09:59 Last Admin: 06/09/17 10:41 Dose: 50 mg Haloperidol Lactate (Haldol) 5 mg IM BID PRN PRN Reason: Agitation Stop: 08/08/17 09:53 Levothyroxine Sodium (Synthroid) 0.088 mg PO QDAC C[facility]STINA Stop: 07/27/17 07:29 Last Admin: 06/09/17 06:56 Dose: 0.088 mg Lorazepam (Ativan) 0.5 mg PO Q6HR PRN; Protocol PRN Reason: Anxiety Stop: 07/26/17 06:00 Last Admin: 06/08/17 00:22 Dose: 0.5 mg Magnesium Hydroxide (Milk Of Magnesia) 30 ml PO DAILY PRN PRN Reason: Constipation Stop: 07/26/17 13:14 Miscellaneous (Probiotic Screen) 1 ea MC PRN PRN PRN Reason: PROTOCOL Stop: 07/30/17 16:29 Naproxen (Naprosyn) 500 mg PO TID PRN PRN Reason: Pain (Moderate) Stop: 07/26/17 13:14 Last Admin: 06/06/17 07:06 Dose: 500 mg Trazodone HCl (Desyrel) 150 mg PO HS CRISTINA PRN Reason: Protocol Stop: 07/26/17 20:59 Last Admin: 06/08/17 22:23 Dose: Not Given Zolpidem Tartrate (Ambien) 5 mg PO HS PRN PRN Reason: Insomnia Stop: 07/25/17 22:26 Last Admin: 05/28/17 01:41 Dose: 5 mg General: demented HEENT: NC/AT, PERRLA Neck: Supple Lungs: CTAB Cardiovascular: RRR, Normal S1, Normal S2 Abdomen: soft, non-tender, thin, non-distended, positive bowel sound Extremities: deformity Neurological: no change, disorganized Internal Medicine Assmt/Plan - Assessment Assessment: acute uti schizoaffective disorder obesity hypothyroidism - Plan Plan: continue po abx fall precautions continue current plan of care Nutritional Asmnt/Malnutr-PDOC - Dietary Evaluation Malnutrition Findings (Please click <Entered> for more info): Nutritional Asmnt/Malnutrition Start: 06/02/17 18: 50 Text: Status: Complete Freq: Document 06/02/17 18:50 IKER (Rec: 06/02/17 18:53 LCLORENA [id number]) Nutritional Asmnt/Malnutrition Patient General Information Nutritional Screening Low Risk Diagnosis psychosis Pertinent Medical Hx/Surgical Hx schizoaffective disorder, opbesity, hypothyroidism Subjective Information Per records, PO intake 25-75%, avg 50%, meeting 100% of nutritional needs. Current Diet Order/ Nutrition Support regular Pertinent Medications oscal w/vit D, colace, culturelle, synthroid Pertinent Labs 05/26 cl 110, glucose 109 Nutritional Hx/Data Height 5 ft 3 in Height (Calculated Centimeters) 160.0 Current Weight (lbs) 150 lb Weight (Calculated Kilograms) 68.0 Weight (Calculated Grams) 52511.9 [place] Body Weight 115 Body Mass Index (BMI) 26.5 Weight Status Obese GI Symptoms GI Symptoms None Last BM no record Difficult in: None Skin Integrity/Comment: intact Estimated Nutritional Goals BEE in Kcals: Adj wt of IBW Calories/Kcals/Kg 25-30 Kcals Calculated 7273-7123 Protein: Adj wt of IBW Protein g/k Protein Calculated 56 Fluid: ml 1548-6895 Nutritional Problem No current Nutrition Prob Problem N/A Malnutrition Alert Protein-Calorie Malnutrition N/A Is there a minimum of two criteria No selected? Query Text:Check all the applicable criteria. A minimum of two criteria are recommended for diagnosis of either severe or non-severe malnutrition. Intervention/Recommendation Comments 1. Continue with current diet as ordered. 2. Monitor PO intake, wt, labs and skin integrity 3. F/U as low risk in 7 days, 06/09 Expected Outcomes/Goals Expected Outcomes/Goals 1. PO intake to meet at least 75% of nutritional needs. 2. Wt stability, skin to remain intact, labs to approach WNL.
[2017-06-09] MEDS: Magnesium Hydroxide (MOM) 30 mL UDC PO PRN (17:22)
--- NOTE | 2017-06-10 01:46 | Progress Notes ---
DATE: 06/09/2017 SUBJECTIVE: The patient presents bizarre, still internally preoccupied, making claims that I want her . She is more interactive, more able to express herself. States that the medications cause weight gain and dry skin. ___Tx__ and medications were started. The patient did attend the hearing and that a fairly good job with expressing herself and a desire to not take the medications. ASSESSMENT: The patient remains symptomatic, still with evidence of psychosis, but some improvement noted. She is taking the medications once a day and not twice a day. PLAN: Initiate Haldol decanoate, backup Haldol IM and Cogentin. JOB# [id number] [facility]
[2017-06-10] MEDS: Levothyroxine 0.088 Mg Tab PO SCH (06:48)
[2017-06-10] MEDS: Calcium Carb/Vit D 500 mg/200 U Tab PO SCH ×2 (09:41→17:11)
[2017-06-10] MEDS: Multivitamin w/ Minerals Tab PO SCH (09:42)
[2017-06-10] MEDS: Haloperidol Lactate 5 mg/mL 1mL Vial IM PRN (10:40)
--- NOTE | 2017-06-10 13:05 | Internal Medicine Prog Note ---
Internal Medicine Subjective - Subjective Service Date: 06/10/17 Patient is:: awake, verbal, interactive, in bed Per staff patient has:: no adverse event, no episodes of fall, poor oral intake , tolerating meds Internal Medicine Objective - Results Result Diagrams: 05/26/17 20:51 05/26/17 20:51 Recent Labs: Laboratory Last Values WBC 9.1 Th/cmm (4.8-10.8) D 05/26/17 20:51 RBC 3.99 Mil/cmm (3.80-5.10) 05/26/17 20:51 Hgb 13.2 gm/dL (12-16) 05/26/17 20:51 Hct 39.2 % (41.0-60) L 05/26/17 20:51 MCV 98.3 fl (81-100) 05/26/17 20:51 MCH 33.0 pg (27.0-31.0) H 05/26/17 20:51 MCHC Differential 33.6 pg (28.0-36.0) 05/26/17 20:51 RDW 13.2 % (11.5-20.0) 05/26/17 20:51 Plt Count 171 Th/cmm (150-400) 05/26/17 20:51 MPV 9.0 fl 05/26/17 20:51 Neutrophils % 64.3 % (40.0-80.0) 05/26/17 20:51 Lymphocytes % 23.9 % (20.0-50.0) 05/26/17 20:51 Monocytes % 10.8 % (2.0-10.0) H 05/26/17 20:51 Eosinophils % 0.9 % (0.0-5.0) 05/26/17 20:51 Basophils % 0.1 % (0.0-2.0) 05/26/17 20:51 Sodium 139 mEq/L (136-145) 05/26/17 20:51 Potassium 3.9 mEq/L (3.5-5.1) 05/26/17 20:51 Chloride 110 mEq/L (98-107) H 05/26/17 20:51 Carbon Dioxide 21.2 mEq/L (21.0-31.0) 05/26/17 20:51 Anion Gap 11.7 (7.0-16.0) 05/26/17 20:51 BUN 10 mg/dL (7-25) 05/26/17 20:51 Creatinine 0.6 mg/dL (0.6-1.2) 05/26/17 20:51 Est GFR ( Amer) > 60.0 ml/min (>90) 05/26/17 20:51 Est GFR (Non-Af Amer) > 60.0 ml/min 05/26/17 20:51 BUN/Creatinine Ratio 16.7 05/26/17 20:51 Glucose 109 mg/dL (70-105) H 05/26/17 20:51 Calcium 8.7 mg/dL (8.6-10.3) 05/26/17 20:51 TSH 3.85 uIU/ml (0.34-5.60) 05/26/17 20:51 Urine Source RANDOM 05/26/17 23:55 Urine Color YELLOW 05/26/17 23:55 Urine Clarity HAZY (CLEAR) 05/26/17 23:55 Urine pH 7.0 (4.6 - 8.0) 05/26/17 23:55 Ur Specific [place] 1.020 (1.005-1.030) 05/26/17 23:55 Urine Protein NEGATIVE mg/dL (NEGATIVE) 05/26/17 23:55 Urine Glucose (UA) NEGATIVE mg/dL (NEGATIVE) 05/26/17 23:55 Urine Ketones TRACE mg/dL (NEGATIVE) 05/26/17 23:55 Urine Blood NEGATIVE (NEGATIVE) 05/26/17 23:55 Urine Nitrate NEGATIVE (NEGATIVE) 05/26/17 23:55 Urine Bilirubin NEGATIVE (NEGATIVE) 05/26/17 23:55 Urine Urobilinogen 0.2 E.U./dL (0.2 - 1.0) 05/26/17 23:55 Ur Leukocyte Esterase SMALL (NEGATIVE) H 05/26/17 23:55 Urine RBC 0-2 /hpf (0-5) 05/26/17 23:55 Urine WBC 10-25 /hpf (0-5) H 05/26/17 23:55 Ur Epithelial Cells MODERATE /lpf (FEW) 05/26/17 23:55 Urine Bacteria MODERATE /hpf (NONE SEEN) H 05/26/17 23:55 Valproic Acid 10.1 ug/mL (50.0-100.0) L 05/26/17 20:51 RPR NONREACTIVE (NONREACTIVE) 05/26/17 20:51 - Physical Exam Vitals and I&O: Vital Signs Temp 98.2 F 06/10/17 06:58 Pulse 64 06/10/17 06:58 Resp 19 06/10/17 06:58 BP 98/62 06/10/17 06:58 Pulse Ox 100 06/10/17 06:58 Intake & Output 06/09/17 06/10/17 06/10/17 18:59 06:59 18:59 Intake Total 250 Balance 250 Intake: Oral 250 Other: # Voids 2 # Bowel Movements 0 Active Medications: Current Medications Acetaminophen (Tylenol) 650 mg PO Q4HR PRN PRN Reason: Pain or Fever >101 Stop: 07/26/17 13:14 Last Admin: 06/09/17 10:42 Dose: 650 mg Acetaminophen/Hydrocodone Bitart ([place] 5mg/325mg) 1 tab PO Q4H PRN PRN Reason: Pain (Severe) Stop: 07/26/17 13:36 Last Admin: 06/04/17 17:18 Dose: 1 tab Al Hydrox/Mg Hydrox/Simethicone (Maalox) 30 ml PO Q4HR PRN PRN Reason: GI DISTRESS Stop: 07/26/17 13:14 Benztropine Mesylate (Cogentin) 1 mg PO BID [facility] Stop: 08/08/17 10:29 Last Admin: 06/10/17 09:41 Dose: Not Given Calcium/Vitamin D (Oscal W/Vitamin D) 1 tab PO BID [facility] Stop: 07/26/17 16:59 Last Admin: 06/10/17 09:41 Dose: Not Given Divalproex Sodium (Depakote Er) 500 mg PO Q12HR CRISTINA PRN Reason: Protocol Stop: 08/01/17 20:59 Last Admin: 06/10/17 09:42 Dose: Not Given Docusate Sodium (Colace) 250 mg PO DAILY [facility] Stop: 07/27/17 08:59 Last Admin: 06/10/17 09:42 Dose: Not Given Haloperidol (Haldol) 5 mg PO BID CRISTINA PRN Reason: Protocol Stop: 08/08/17 16:59 Last Admin: 06/10/17 09:42 Dose: Not Given Haloperidol Decanoate (Haldol Dec) 50 mg IM QMONTH CRISTINA PRN Reason: Protocol Stop: 08/08/17 09:59 Last Admin: 06/09/17 10:41 Dose: 50 mg Haloperidol Lactate (Haldol) 5 mg IM BID PRN PRN Reason: Agitation Stop: 08/08/17 09:53 Last Admin: 06/10/17 10:40 Dose: 5 mg Levothyroxine Sodium (Synthroid) 0.088 mg PO QDAC CRISTINA Stop: 07/27/17 07:29 Last Admin: 06/10/17 06:48 Dose: 0.088 mg Lorazepam (Ativan) 0.5 mg PO Q6HR PRN; Protocol PRN Reason: Anxiety Stop: 07/26/17 06:00 Last Admin: 06/08/17 00:22 Dose: 0.5 mg Magnesium Hydroxide (Milk Of Magnesia) 30 ml PO DAILY PRN PRN Reason: Constipation Stop: 07/26/17 13:14 Last Admin: 06/09/17 17:22 Dose: 30 ml Miscellaneous (Probiotic Screen) 1 ea MC PRN PRN PRN Reason: PROTOCOL Stop: 07/30/17 16:29 Naproxen (Naprosyn) 500 mg PO TID PRN PRN Reason: Pain (Moderate) Stop: 07/26/17 13:14 Last Admin: 06/06/17 07:06 Dose: 500 mg Trazodone HCl (Desyrel) 150 mg PO HS CRISTINA PRN Reason: Protocol Stop: 07/26/17 20:59 Last Admin: 06/09/17 21:37 Dose: 150 mg Zolpidem Tartrate (Ambien) 5 mg PO HS PRN PRN Reason: Insomnia Stop: 07/25/17 22:26 Last Admin: 05/28/17 01:41 Dose: 5 mg General: demented HEENT: NC/AT, PERRLA Neck: Supple Lungs: CTAB Cardiovascular: RRR, Normal S1, Normal S2 Abdomen: soft, non-tender, thin, non-distended, positive bowel sound Extremities: deformity Neurological: no change, disorganized Internal Medicine Assmt/Plan - Assessment Assessment: acute uti schizoaffective disorder obesity hypothyroidism - Plan Plan: fall precautions continue current plan of care Nutritional Asmnt/Malnutr-PDOC - Dietary Evaluation Malnutrition Findings (Please click <Entered> for more info): Nutritional Asmnt/Malnutrition Start: 06/02/17 18: 50 Text: Status: Complete Freq: Document 06/02/17 18:50 IKER (Rec: 06/02/17 18:53 IKER [id number]) Nutritional Asmnt/Malnutrition Patient General Information Nutritional Screening Low Risk Diagnosis psychosis Pertinent Medical Hx/Surgical Hx schizoaffective disorder, opbesity, hypothyroidism Subjective Information Per records, PO intake 25-75%, avg 50%, meeting 100% of nutritional needs. Current Diet Order/ Nutrition Support regular Pertinent Medications oscal w/vit D, colace, culturelle, synthroid Pertinent Labs 05/26 cl 110, glucose 109 Nutritional Hx/Data Height 5 ft 3 in Height (Calculated Centimeters) 160.0 Current Weight (lbs) 150 lb Weight (Calculated Kilograms) 68.0 Weight (Calculated Grams) 35661.9 [place] Body Weight 115 Body Mass Index (BMI) 26.5 Weight Status Obese GI Symptoms GI Symptoms None Last BM no record Difficult in: None Skin Integrity/Comment: intact Estimated Nutritional Goals BEE in Kcals: Adj wt of IBW Calories/Kcals/Kg 25-30 Kcals Calculated 0493-1849 Protein: Adj wt of IBW Protein g/k Protein Calculated 56 Fluid: ml 0849-4183 Nutritional Problem No current Nutrition Prob Problem N/A Malnutrition Alert Protein-Calorie Malnutrition N/A Is there a minimum of two criteria No selected? Query Text:Check all the applicable criteria. A minimum of two criteria are recommended for diagnosis of either severe or non-severe malnutrition. Intervention/Recommendation Comments 1. Continue with current diet as ordered. 2. Monitor PO intake, wt, labs and skin integrity 3. F/U as low risk in 7 days, 06/09 Expected Outcomes/Goals Expected Outcomes/Goals 1. PO intake to meet at least 75% of nutritional needs. 2. Wt stability, skin to remain intact, labs to approach WNL.
[2017-06-10] MEDS ORDERED: Haloperidol Lactate 5 mg/mL 1mL Vial IM ONE (15:53)
--- NOTE | 2017-06-11 00:24 | Progress Notes ---
DATE: 06/10/2017 SUBJECTIVE: The patient remains bizarre, internally preoccupied, but somewhat more able to express herself. She is taking her medications now and no agitation, no aggression. No evidence of any dangerousness at this time. No overt side effects noted. Staff noting she seems to be calmer. ASSESSMENT: The patient remains symptomatic, still with ongoing psychotic symptoms with improvement noted. PLAN: We will continue to monitor. We will coordinate care with social work regarding safe discharge plan and good psychiatric followup. I have ongoing concerns given that the patient is still making statements that are psychotic in nature; however, staff is noting that she is more amenable to treatment and she seems to be making improvements. JOB# [id number]
--- NOTE | 2017-06-11 03:29 | Progress Notes ---
DATE: 06/04/2017 SUBJECTIVE: The patient seen, chart reviewed, discussed with staff. The patient is still yelling, screaming, and talking about "i'm im dead____," fixated on roommate, paranoid, refusing medications at times, took medications yesterday, did not take medications today, anxious, delusional, reclusive. ASSESSMENT: The patient remains symptomatic, psychotic, delusional, yelling, screaming loud, and intrusive. PLAN: The patient remains bizarre and psychotic, not safe for discharge. We will encourage better med compliance. She may need a [place] petition. JOB# [id number] DARRICK
[2017-06-11] MEDS: Levothyroxine 0.088 Mg Tab PO SCH (06:42)
[2017-06-11] MEDS: Calcium Carb/Vit D 500 mg/200 U Tab PO SCH (09:27)
[2017-06-11] MEDS: Multivitamin w/ Minerals Tab PO SCH (09:27)
[2017-06-11] MEDS: Magnesium Hydroxide (MOM) 30 mL UDC PO PRN (10:05)
[2017-06-11] MEDS: Haloperidol Lactate 5 mg/mL 1mL Vial IM PRN (11:54)
--- NOTE | 2017-06-11 12:54 | Internal Medicine Prog Note ---
Internal Medicine Subjective - Subjective Service Date: 06/11/17 Patient is:: awake, verbal, interactive, in bed Per staff patient has:: no adverse event, no episodes of fall, poor oral intake , tolerating meds Internal Medicine Objective - Results Result Diagrams: 05/26/17 20:51 05/26/17 20:51 Recent Labs: Laboratory Last Values WBC 9.1 Th/cmm (4.8-10.8) D 05/26/17 20:51 RBC 3.99 Mil/cmm (3.80-5.10) 05/26/17 20:51 Hgb 13.2 gm/dL (12-16) 05/26/17 20:51 Hct 39.2 % (41.0-60) L 05/26/17 20:51 MCV 98.3 fl (81-100) 05/26/17 20:51 MCH 33.0 pg (27.0-31.0) H 05/26/17 20:51 MCHC Differential 33.6 pg (28.0-36.0) 05/26/17 20:51 RDW 13.2 % (11.5-20.0) 05/26/17 20:51 Plt Count 171 Th/cmm (150-400) 05/26/17 20:51 MPV 9.0 fl 05/26/17 20:51 Neutrophils % 64.3 % (40.0-80.0) 05/26/17 20:51 Lymphocytes % 23.9 % (20.0-50.0) 05/26/17 20:51 Monocytes % 10.8 % (2.0-10.0) H 05/26/17 20:51 Eosinophils % 0.9 % (0.0-5.0) 05/26/17 20:51 Basophils % 0.1 % (0.0-2.0) 05/26/17 20:51 Sodium 139 mEq/L (136-145) 05/26/17 20:51 Potassium 3.9 mEq/L (3.5-5.1) 05/26/17 20:51 Chloride 110 mEq/L (98-107) H 05/26/17 20:51 Carbon Dioxide 21.2 mEq/L (21.0-31.0) 05/26/17 20:51 Anion Gap 11.7 (7.0-16.0) 05/26/17 20:51 BUN 10 mg/dL (7-25) 05/26/17 20:51 Creatinine 0.6 mg/dL (0.6-1.2) 05/26/17 20:51 Est GFR ( Amer) > 60.0 ml/min (>90) 05/26/17 20:51 Est GFR (Non-Af Amer) > 60.0 ml/min 05/26/17 20:51 BUN/Creatinine Ratio 16.7 05/26/17 20:51 Glucose 109 mg/dL (70-105) H 05/26/17 20:51 Calcium 8.7 mg/dL (8.6-10.3) 05/26/17 20:51 TSH 3.85 uIU/ml (0.34-5.60) 05/26/17 20:51 Urine Source RANDOM 05/26/17 23:55 Urine Color YELLOW 05/26/17 23:55 Urine Clarity HAZY (CLEAR) 05/26/17 23:55 Urine pH 7.0 (4.6 - 8.0) 05/26/17 23:55 Ur Specific [place] 1.020 (1.005-1.030) 05/26/17 23:55 Urine Protein NEGATIVE mg/dL (NEGATIVE) 05/26/17 23:55 Urine Glucose (UA) NEGATIVE mg/dL (NEGATIVE) 05/26/17 23:55 Urine Ketones TRACE mg/dL (NEGATIVE) 05/26/17 23:55 Urine Blood NEGATIVE (NEGATIVE) 05/26/17 23:55 Urine Nitrate NEGATIVE (NEGATIVE) 05/26/17 23:55 Urine Bilirubin NEGATIVE (NEGATIVE) 05/26/17 23:55 Urine Urobilinogen 0.2 E.U./dL (0.2 - 1.0) 05/26/17 23:55 Ur Leukocyte Esterase SMALL (NEGATIVE) H 05/26/17 23:55 Urine RBC 0-2 /hpf (0-5) 05/26/17 23:55 Urine WBC 10-25 /hpf (0-5) H 05/26/17 23:55 Ur Epithelial Cells MODERATE /lpf (FEW) 05/26/17 23:55 Urine Bacteria MODERATE /hpf (NONE SEEN) H 05/26/17 23:55 Valproic Acid 10.1 ug/mL (50.0-100.0) L 05/26/17 20:51 RPR NONREACTIVE (NONREACTIVE) 05/26/17 20:51 - Physical Exam Vitals and I&O: Vital Signs Temp 98.7 F 06/10/17 15:39 Pulse 78 06/10/17 15:39 Resp 20 06/10/17 20:00 BP 115/64 06/10/17 15:39 Pulse Ox 96 06/10/17 15:39 Intake & Output 06/10/17 06/11/17 06/11/17 18:59 06:59 18:59 Other: Stool Characteristics Soft Active Medications: Current Medications Acetaminophen (Tylenol) 650 mg PO Q4HR PRN PRN Reason: Pain or Fever >101 Stop: 07/26/17 13:14 Last Admin: 06/09/17 10:42 Dose: 650 mg Acetaminophen/Hydrocodone Bitart ([place] 5mg/325mg) 1 tab PO Q4H PRN PRN Reason: Pain (Severe) Stop: 07/26/17 13:36 Last Admin: 06/04/17 17:18 Dose: 1 tab Al Hydrox/Mg Hydrox/Simethicone (Maalox) 30 ml PO Q4HR PRN PRN Reason: GI DISTRESS Stop: 07/26/17 13:14 Benztropine Mesylate (Cogentin) 1 mg PO BID [facility] Stop: 08/08/17 10:29 Last Admin: 06/11/17 09:26 Dose: 1 mg Calcium/Vitamin D (Oscal W/Vitamin D) 1 tab PO BID CRISTINA Stop: 07/26/17 16:59 Last Admin: 06/11/17 09:27 Dose: 1 tab Divalproex Sodium (Depakote Er) 500 mg PO Q12HR CRISTINA PRN Reason: Protocol Stop: 08/01/17 20:59 Last Admin: 06/11/17 09:28 Dose: Not Given Docusate Sodium (Colace) 250 mg PO DAILY CRISTINA Stop: 07/27/17 08:59 Last Admin: 06/11/17 09:25 Dose: 250 mg Haloperidol (Haldol) 5 mg PO BID CRISTINA PRN Reason: Protocol Stop: 08/08/17 16:59 Last Admin: 06/11/17 09:28 Dose: Not Given Haloperidol Decanoate (Haldol Dec) 50 mg IM QMONTH CRISTINA PRN Reason: Protocol Stop: 08/08/17 09:59 Last Admin: 06/09/17 10:41 Dose: 50 mg Haloperidol Lactate (Haldol) 5 mg IM BID PRN PRN Reason: Agitation Stop: 08/08/17 09:53 Last Admin: 06/11/17 11:54 Dose: 5 mg Levothyroxine Sodium (Synthroid) 0.088 mg PO QDAC CRISTINA Stop: 07/27/17 07:29 Last Admin: 06/11/17 06:42 Dose: 0.088 mg Lorazepam (Ativan) 0.5 mg PO Q6HR PRN; Protocol PRN Reason: Anxiety Stop: 07/26/17 06:00 Last Admin: 06/08/17 00:22 Dose: 0.5 mg Magnesium Hydroxide (Milk Of Magnesia) 30 ml PO DAILY PRN PRN Reason: Constipation Stop: 07/26/17 13:14 Last Admin: 06/11/17 10:05 Dose: 30 ml Miscellaneous (Probiotic Screen) 1 ea MC PRN PRN PRN Reason: PROTOCOL Stop: 07/30/17 16:29 Naproxen (Naprosyn) 500 mg PO TID PRN PRN Reason: Pain (Moderate) Stop: 07/26/17 13:14 Last Admin: 06/06/17 07:06 Dose: 500 mg Trazodone HCl (Desyrel) 150 mg PO HS CRISTINA PRN Reason: Protocol Stop: 07/26/17 20:59 Last Admin: 06/10/17 21:37 Dose: 150 mg Zolpidem Tartrate (Ambien) 5 mg PO HS PRN PRN Reason: Insomnia Stop: 07/25/17 22:26 Last Admin: 05/28/17 01:41 Dose: 5 mg General: demented HEENT: NC/AT, PERRLA Neck: Supple Lungs: CTAB Cardiovascular: RRR, Normal S1, Normal S2 Abdomen: soft, non-tender, thin, non-distended, positive bowel sound Extremities: deformity Neurological: no change, disorganized Internal Medicine Assmt/Plan - Assessment Assessment: acute uti schizoaffective disorder obesity hypothyroidism - Plan Plan: fall precautions continue current plan of care Nutritional Asmnt/Malnutr-PDOC - Dietary Evaluation Malnutrition Findings (Please click <Entered> for more info): Nutritional Asmnt/Malnutrition Start: 06/02/17 18: 50 Text: Status: Complete Freq: Document 06/02/17 18:50 IKER (Rec: 06/02/17 18:53 IKER [id number]) Nutritional Asmnt/Malnutrition Patient General Information Nutritional Screening Low Risk Diagnosis psychosis Pertinent Medical Hx/Surgical Hx schizoaffective disorder, opbesity, hypothyroidism Subjective Information Per records, PO intake 25-75%, avg 50%, meeting 100% of nutritional needs. Current Diet Order/ Nutrition Support regular Pertinent Medications oscal w/vit D, colace, culturelle, synthroid Pertinent Labs 05/26 cl 110, glucose 109 Nutritional Hx/Data Height 5 ft 3 in Height (Calculated Centimeters) 160.0 Current Weight (lbs) 150 lb Weight (Calculated Kilograms) 68.0 Weight (Calculated Grams) 03065.9 [place] Body Weight 115 Body Mass Index (BMI) 26.5 Weight Status Obese GI Symptoms GI Symptoms None Last BM no record Difficult in: None Skin Integrity/Comment: intact Estimated Nutritional Goals BEE in Kcals: Adj wt of IBW Calories/Kcals/Kg 25-30 Kcals Calculated [id number] Protein: Adj wt of IBW Protein g/k Protein Calculated 56 Fluid: ml [id number] Nutritional Problem No current Nutrition Prob Problem N/A Malnutrition Alert Protein-Calorie Malnutrition N/A Is there a minimum of two criteria No selected? Query Text:Check all the applicable criteria. A minimum of two criteria are recommended for diagnosis of either severe or non-severe malnutrition. Intervention/Recommendation Comments 1. Continue with current diet as ordered. 2. Monitor PO intake, wt, labs and skin integrity 3. F/U as low risk in 7 days, 06/09 Expected Outcomes/Goals Expected Outcomes/Goals 1. PO intake to meet at least 75% of nutritional needs. 2. Wt stability, skin to remain intact, labs to approach WNL.
--- NOTE | 2017-06-11 16:27 | Discharge Summary ---
DATE OF DISCHARGE: 06/11/2017 JUSTIFICATION FOR HOSPITALIZATION: "They are trying to kill me." Psychotic decompensation. HISTORY OF PRESENT ILLNESS: A 57-year-old female transferred from [facility], diagnosed with schizoaffective, history of being conserved, crying uncontrollably, not eating, fearful, stating that she is , believing people are trying to kill her, erratic medication compliance. PAST PSYCHIATRIC HISTORY: Multiple admissions. MEDICATIONS: Noted. SOCIAL HISTORY: Living in [facility]. MENTAL STATUS EXAMINATION: Please see full psych eval for details. PROVISIONAL DIAGNOSIS: Schizoaffective disorder, poor medication and treatment compliance. Under medical, please see full H and P. HOSPITAL COURSE: After initial assessment, the patient started on Risperdal, but started to refuse. She began to decompensate, becoming more psychotic, believing that she was , believing that others around her wishing her if she were and very paranoid and crying uncontrollably and unruly and throwing objects. [facility] petition was filed. It was upheld. Medications were initiated including Haldol and Haldol Decanoate and Depakote. Over the course of the hospitalization, she did improve, her mood improved, affect improved. No longer paranoid, no longer believing that she were and more sociable and interactive and staff noting improvement. Also, eating well, sleeping very well throughout the night. CONDITION UPON DISCHARGE: Improved, better attention ADLs, better eye contact. Speech still decreased content. Mood "a little better." Affect flat. Thought processes were somewhat more engaged, no SI, no HI. No overt psychosis on exam. Insight and judgment better. PROVISIONAL DIAGNOSIS: Schizoaffective disorder. Also, poor medication and treatment compliance. Under medical, please see full H and P. PROGNOSIS: The patient follows up with outpatient mental services and remains treatment compliant. Prognosis will improve, otherwise guarded. JOB# [id number]
== END 2017-06-11 14:25 | disposition home or self-care (01) | DRG 885 ==
LOC: ER 20:07 → GERO 21:52
PROVIDERS: ADMIT Psychiatry & Neurology Psychiatry; ATTEND Psychiatry & Neurology Psychiatry
DX: F25.0 Schizoaffective disorder, bipolar type (principal); F29 Unspecified psychosis not due to a substance or known physiological condition; E03.9 Hypothyroidism, unspecified; N39.0 Urinary tract infection, site not specified; E66.9 Obesity, unspecified; Z68.26 Body mass index [BMI] 26.0-26.9, adult
CPT/HCPCS: 36415-UA; 73521; 80048-TC; 80164-TC; 81001-TC; 81003-TC; 84443-TC; 85025-TC; 86592-TC; 87086-90; 93005; J1200; J1630; J1631; J2060; Z7610

== ENCOUNTER 2017-07-09 21:52 | Inpatient (IN) | payer MEDICARE ==
--- NOTE | 2017-07-09 22:27 | ED Physician Chart ---
ED Chief Complaint/HPI - Patient Information Date Seen:: 07/09/17 Time Seen:: 22:20 Chief Complaint:: increased agitation History of Present Illness:: Patient's been exhibiting increased agitation and reportedly [facility]. Patient denies refusing medication. Allergies:: Allergies Allergy/AdvReac Type Severity Reaction Status Date / Time metronidazole [From Flagyl] Allergy Verified 03/21/17 20:20 Historian:: Patient Review:: Nurse's Note Reviewed, Transfer documents Reviewed ED Review of Systems - Review of Systems General/Constitutional: No fever Skin: No skin lesions, No rash, No bruising Head: No headache, No light-headedness Eyes: No loss of vision, No pain, No diplopia ENT: No earache, No nasal drainage, No sore throat, No tinnitus Neck: No neck pain, No swelling, No thyromegaly, No stiffness, No mass noted Cardio Vascular: No chest pain, No palpitations, No PND, No orthopnea, No edema Pulmonary: No SOB, No cough, No sputum, No wheezing GI: No nausea, No vomiting, No diarrhea, No pain, No melena, No hematochezia, No constipation, No hematemesis G/U: No dysuria, No frequency, No hematuria Musculoskeletal: No bone or joint pain, No back pain, No muscle pain Endocrine: No polyuria, No polydipsia Psychiatric: No prior psych history, No depression, No anxiety, No suicidal ideation Hematopoietic: No bruising, No lymphadenopathy Allergic/Immuno: No urticaria, No angioedema Neurological: No syncope, No focal symptoms, No weakness, No paresthesia, No headache, No seizure, No dizziness, No confusion, No vertigo ED Past Medical History - Past Medical History Past Medical History: Thyroid disorder, Other (psychosis hypothyroidism; major depression; insomnia) Family History: None Social History: Non Smoker, Alcohol Surgical History: other (liposuction and 2 abortions) Psychiatricy History: Depression, Other (psychosis) Medication: Reviewed Family Medical History - Family Member Mother History Unknown: Yes Ethnicity: Unknown Living Status: Unknown Hx Family Cancer: (Unknown) Hx Family Coronary Artery Disease: (Unknown) Hx Family Congestive Heart Failure: (Unknown) Hx Family Hypertension: (Unknown) Hx Family Stroke: (Unknown) Hx Family Diabetes: (Unknown) Hx Family Seizures: (Unknown) Hx Family Dementia: (Unknown) Hx Family AIDS: (Unknown) Hx Family COPD: (Unknown) Hx Family Hepatitis: (Unknown) Hx Family Psychiatric Problems: (Unknown) Hx Family Tuberculosis: (Unknown) ED Physical Exam - Physical Examination General/Constitutional: Awake, Well-developed, well-nourished, Alert, No distress Other Gen/Cons comments:: Alert and oriented to exact date Head: Atraumatic Eyes: Lids, conjuctiva normal, PERRL Skin: No skin lesions, No ecchymosis ENMT: Nasal exam nl, Lips, teeth, gums nl Neck: No nuchal rigidity Respiratory: Nl effort/Exclusion, Clear to Auscultation, No Wheeze/Rhonchi/Rales Cardio Vascular: RRR, No murmur, gallop, rubs GI: No tenderness/rebounding/guarding, No organomegaly, No hernia : No CVA tenderness Extremities: Normal digits & nails Neuro/Psych: No focal deficits ED Labs/Radiology/EKG Results - Lab Results Results: Laboratory Results - last 24 hr 07/09/17 07/09/17 07/09/17 22:30 22:30 23:50 WBC 6.7 RBC 3.63 L Hgb 11.6 L Hct 35.1 L MCV 96.9 MCH 32.1 H MCHC Differential 33.1 RDW 13.7 Plt Count 159 MPV 9.3 Neutrophils % 57.8 Lymphocytes % 31.2 Monocytes % 9.1 Eosinophils % 1.5 Basophils % 0.4 Sodium 133 L Potassium 4.0 Chloride 106 Carbon Dioxide 24.7 Anion Gap 6.3 L BUN 21 Creatinine 0.7 Est GFR ( Amer) > 60.0 Est GFR (Non-Af Amer) > 60.0 BUN/Creatinine Ratio 30.0 Glucose 101 Calcium 8.8 Total Bilirubin 0.6 AST 11 L ALT 15 Alkaline Phosphatase 42 Total Protein 5.9 L Albumin 3.5 L Globulin 2.4 Albumin/Globulin Ratio 1.5 Triglycerides 76 Cholesterol 169 LDL Cholesterol Direct 95 HDL Cholesterol 44 Urine Source CLEAN C Urine Color YELLOW Urine Clarity CLEAR Urine pH 6.5 Ur Specific [place] 1.015 Urine Protein NEGATIVE Urine Glucose (UA) NEGATIVE Urine Ketones NEGATIVE Urine Blood NEGATIVE Urine Nitrate NEGATIVE Urine Bilirubin NEGATIVE Urine Urobilinogen 0.2 Ur Leukocyte Esterase MODERATE H Urine RBC 0-2 Urine WBC 10-25 H Ur Epithelial Cells MODERATE Urine Bacteria FEW Laboratory Results - last 24 hr 07/09/17 07/09/17 07/09/17 22:30 22:30 23:50 WBC 6.7 RBC 3.63 L Hgb 11.6 L Hct 35.1 L MCV 96.9 MCH 32.1 H MCHC Differential 33.1 RDW 13.7 Plt Count 159 MPV 9.3 Neutrophils % 57.8 Lymphocytes % 31.2 Monocytes % 9.1 Eosinophils % 1.5 Basophils % 0.4 Sodium 133 L Potassium 4.0 Chloride 106 Carbon Dioxide 24.7 Anion Gap 6.3 L BUN 21 Creatinine 0.7 Est GFR ( Amer) > 60.0 Est GFR (Non-Af Amer) > 60.0 BUN/Creatinine Ratio 30.0 Glucose 101 Calcium 8.8 Total Bilirubin 0.6 AST 11 L ALT 15 Alkaline Phosphatase 42 Total Protein 5.9 L Albumin 3.5 L Globulin 2.4 Albumin/Globulin Ratio 1.5 Triglycerides 76 Cholesterol 169 LDL Cholesterol Direct 95 HDL Cholesterol 44 Urine Source CLEAN C Urine Color YELLOW Urine Clarity CLEAR Urine pH 6.5 Ur Specific [place] 1.015 Urine Protein NEGATIVE Urine Glucose (UA) NEGATIVE Urine Ketones NEGATIVE Urine Blood NEGATIVE Urine Nitrate NEGATIVE Urine Bilirubin NEGATIVE Urine Urobilinogen 0.2 Ur Leukocyte Esterase MODERATE H Urine RBC 0-2 Urine WBC 10-25 H Ur Epithelial Cells MODERATE Urine Bacteria FEW - EKG Interpretations Rate & Rhythm: normal sinus rhythm with a rate of 52 [place]: normal ED Reassessment (Disposition) - Reassessment Reassessment Condition:: Unchanged - Diagnosis Diagnosis:: Agitation; urinary tract infection - Patient Disposition Admitted to:: Med/Surg Spoke to:: Jase Sebastian Admitting Medical Physician:: Jase Sebastian Admitting Psych Physician:: Tali Mcgraw Condition at Disposition:: Stable
[2017-07-09 22:38] LABS: % BASOPHILS 0.4 % (0.0-2.0); % EOSINOPHILS 1.5 % (0.0-5.0); % LYMPHOCYTES 31.2 % (20.0-50.0); % MONOCYTES 9.1 % (2.0-10.0); % NEUTROPHILS 57.8 % (40.0-80.0); EOSINOPHILE ABSOLUTE 0.1 Th/cmm (0.1-0.4); HEMATOCRIT 35.1 % (41.0-60); HEMOGLOBIN 11.6 gm/dL (12-16); LYMPHOCYTE ABSOLUTE 2.1 Th/cmm (1.5-3.0); MEAN CELL VOLUME 96.9 fl (81-100); MEAN CORPUSCULAR HEMOGLOBIN 32.1 pg (27.0-31.0); MEAN CORPUSCULAR HGB CONC 33.1 pg (28.0-36.0); MEAN PLATELET VOLUME 9.3 fl; MONOCYTE ABSOLUTE 0.6 Th/cmm (0.3-1.0); NEUTROPHILE ABSOLUTE 3.9 Th/cmm (1.8-8.0); PLATELET COUNT 159 Th/cmm (150-400); RED BLOOD COUNT 3.63 Mil/cmm (3.80-5.10); RED CELL DISTRIBUTION WIDTH 13.7 % (11.5-20.0); WHITE BLOOD COUNT 6.7 Th/cmm (4.8-10.8)
[2017-07-09 22:55] LABS: ALB/GLOB RATIO 1.5 (1.0-1.8); ALBUMIN 3.5 gm/dL (3.7-5.3); ALKALINE PHOSPHATASE 42 U/L (34-104); ANION GAP 6.3 (7.0-16.0); BILIRUBIN,TOTAL 0.6 mg/dL (0.3-1.0); BUN - UREA NITROGEN 21 mg/dL (7-25); CALCIUM SERUM 8.8 mg/dL (8.6-10.3); CARBON DIOXIDE 24.7 mEq/L (21.0-31.0); CHLORIDE 106 mEq/L (98-107); CHOLESTEROL 169 mg/dL (<200); CREATININE - SERUM 0.7 mg/dL (0.6-1.2); GFR AFRICAN-AMERICAN > 60.0 ml/min (>90); GFR NON AFRICAN-AMERICAN > 60.0 ml/min; GLUCOSE 101 mg/dL (70-105); HDL -HIGH DENSITY LIPOPROTEIN 44 mg/dL (23-92); SGOT 11 U/L (13-39); SGPT/ALT 15 U/L (7-52); SODIUM SERUM 133 mEq/L (136-145); TOTAL PROTEIN,SERUM 5.9 gm/dL (6.0-8.3); TRIGLYCERIDES 76 mg/dL (<150)
[2017-07-09 23:53] LABS: URINE MICROSCOPIC INDICATED? YES; URINE SOURCE CLEAN C
[2017-07-09 23:56] LABS: URINE BILIRUBIN NEGATIVE (NEGATIVE); URINE BLOOD NEGATIVE (NEGATIVE); URINE GLUCOSE (UA) NEGATIVE (NEGATIVE); URINE KETONE NEGATIVE (NEGATIVE); URINE LEUKOCYTE ESTERASE MODERATE (NEGATIVE); URINE NITRATE NEGATIVE (NEGATIVE); URINE PH 6.5 (4.6 - 8.0); URINE PROTEIN NEGATIVE (NEGATIVE); URINE UROBILINOGEN 0.2 E.U./dL (0.2 - 1.0)
[2017-07-10 00:07] LABS: URINE CLARITY CLEAR (CLEAR); URINE COLOR YELLOW
[2017-07-10 00:08] LABS: URINE RBC 0-2 /hpf (0-5)
[2017-07-10 00:10] LABS: URINE BACTERIA FEW /hpf (NONE SEEN); URINE EPITHELIAL CELLS MODERATE /lpf (FEW)
[2017-07-10] MEDS ORDERED: cefTRIAXone 1 GM in Sodium Chloride 0.9% 50 ML IV ONE (00:30)
[2017-07-10] MEDS ORDERED: Sodium Chloride 0.9% 1,000 ML IV ONE (00:30)
[2017-07-10] MEDS ORDERED: Maalox 30 mL Cup PO PRN (00:48)
[2017-07-10] MEDS ORDERED: Ipratropium Neb 0.5 mg/2.5 mL UD IH PRN (00:48)
[2017-07-10] MEDS ORDERED: Albuterol Nebulizer 2.5mg/3mL HHN PRN (00:48)
[2017-07-10] MEDS: D5-0.9%NS 1,000 ML IV SCH ×2 (03:32→13:29)
[2017-07-10] MEDS: Multivitamin w/ Minerals Tab PO SCH (09:07)
[2017-07-10] MEDS: Calcium Carb/Vit D 500 mg/200 U Tab PO SCH ×2 (09:10→17:33)
[2017-07-10] MEDS: Levothyroxine 0.088 Mg Tab PO SCH (09:12)
--- NOTE | 2017-07-10 12:38 | Internal Medicine Prog Note ---
Internal Medicine Subjective - Subjective Service Date: 07/10/17 ([facility] dictated [id number]) Internal Medicine Objective - Results Result Diagrams: 07/09/17 22:30 07/09/17 22: Recent Labs: Laboratory Last Values WBC 6.7 Th/cmm (4.8-10.8) 07/09/17: RBC 3.63 Mil/cmm (3.80-5.10) L 07/09/17: Hgb 11.6 gm/dL (12-16) L 07/09/17: Hct 35.1 % (41.0-60) L 07/09/17: MCV 96.9 fl (81-100) 07/09/17: MCH 32.1 pg (27.0-31.0) H 07/09/17: MCHC Differential 33.1 pg (28.0-36.0) 07/09/17: RDW 13.7 % (11.5-20.0) 07/09/17: Plt Count 159 Th/cmm (150-400) 07/09/17 22: MPV 9.3 fl 07/09/17: Neutrophils % 57.8 % (40.0-80.0) 07/09/17: Lymphocytes % 31.2 % (20.0-50.0) 07/09/17: Monocytes % 9.1 % (2.0-10.0) 07/09/17: Eosinophils % 1.5 % (0.0-5.0) 07/09/17: Basophils % 0.4 % (0.0-2.0) 07/09/17: Sodium 133 mEq/L (136-145) L 07/09/17: Potassium 4.0 mEq/L (3.5-5.1) 07/09/17: Chloride 106 mEq/L (98-107) 07/09/17: Carbon Dioxide 24.7 mEq/L (21.0-31.0) 07/09/17: Anion Gap 6.3 (7.0-16.0) L 07/09/17: BUN 21 mg/dL (7-25) 03/15/18 22:30 Creatinine 0.7 mg/dL (0.6-1.2) 07/09/17 22:30 Est GFR ( Amer) > 60.0 ml/min (>90) 07/09/17 22:30 Est GFR (Non-Af Amer) > 60.0 ml/min 07/09/17 22:30 BUN/Creatinine Ratio 30.0 07/09/17 22:30 Glucose 101 mg/dL (70-105) 07/09/17 22:30 Calcium 8.8 mg/dL (8.6-10.3) 07/09/17 22:30 Total Bilirubin 0.6 mg/dL (0.3-1.0) 07/09/17 22:30 AST 11 U/L (13-39) L 07/09/17 22:30 ALT 15 U/L (7-52) 07/09/17 22:30 Alkaline Phosphatase 42 U/L (34-104) 07/09/17 22:30 Total Protein 5.9 gm/dL (6.0-8.3) L 07/09/17 22:30 Albumin 3.5 gm/dL (3.7-5.3) L 07/09/17 22:30 Globulin 2.4 gm/dL 07/09/17 22:30 Albumin/Globulin Ratio 1.5 (1.0-1.8) 07/09/17 22:30 Triglycerides 76 mg/dL (<150) 07/09/17 22:30 Cholesterol 169 mg/dL (<200) 07/09/17 22:30 LDL Cholesterol Direct 95 mg/dL (75-193) 07/09/17 22:30 HDL Cholesterol 44 mg/dL (23-92) 07/09/17 22:30 TSH 0.87 uIU/ml (0.34-5.60) 07/09/17 22:30 Urine Source CLEAN C 07/09/17 23:50 Urine Color YELLOW 07/09/17 23:50 Urine Clarity CLEAR (CLEAR) 07/09/17 23:50 Urine pH 6.5 (4.6 - 8.0) 07/09/17 23:50 Ur Specific [place] 1.015 (1.005-1.030) 07/09/17 23:50 Urine Protein NEGATIVE mg/dL (NEGATIVE) 07/09/17 23:50 Urine Glucose (UA) NEGATIVE mg/dL (NEGATIVE) 07/09/17 23:50 Urine Ketones NEGATIVE mg/dL (NEGATIVE) 07/09/17 23:50 Urine Blood NEGATIVE (NEGATIVE) 07/09/17 23:50 Urine Nitrate NEGATIVE (NEGATIVE) 07/09/17 23:50 Urine Bilirubin NEGATIVE (NEGATIVE) 07/09/17 23:50 Urine Urobilinogen 0.2 E.U./dL (0.2 - 1.0) 07/09/17 23:50 Ur Leukocyte Esterase MODERATE (NEGATIVE) H 07/09/17 23:50 Urine RBC 0-2 /hpf (0-5) 07/09/17 23:50 Urine WBC 10-25 /hpf (0-5) H 07/09/17 23:50 Ur Epithelial Cells MODERATE /lpf (FEW) 07/09/17 23:50 Urine Bacteria FEW /hpf (NONE SEEN) 07/09/17 23:50 RPR NONREACTIVE (NONREACTIVE) 07/09/17 22:30 - Physical Exam Vitals and I&O: Vital Signs Temp 97.5 F 07/10/17 07:51 Pulse 60 07/10/17 07:51 Resp 18 07/10/17 07:51 BP 109/59 07/10/17 07:51 Pulse Ox 95 07/10/17 07:51 Intake & Output 07/09/17 07/10/17 07/10/17 18:59 06:59 18:59 Weight (lbs) 145 lb 14.4 oz 145 lb Other: # Voids 2 # Bowel Movements 0 Active Medications: Current Medications Acetaminophen (Tylenol) 650 mg PO Q4H PRN PRN Reason: MILD Pain Or Fever above 101 Stop: 09/08/17 00:47 Acetaminophen/Hydrocodone Bitart ([place] 5mg/325mg) 1 tab PO Q4H PRN PRN Reason: Pain (Severe) Stop: 09/08/17 00:46 Al Hydrox/Mg Hydrox/Simethicone (Maalox) 30 ml PO Q6H PRN PRN Reason: Dyspepsia Stop: 09/08/17 00:47 Albuterol Sulfate (Albuterol 2.5mg/3ml Neb Ud) 2.5 mg HHN Q2HRT PRN PRN Reason: Shortness of Breath or Wheeze Stop: 09/08/17 00:47 Aripiprazole (Abilify) 5 mg PO DAILY CRISTINA PRN Reason: Protocol Stop: 09/08/17 08:59 Last Admin: 07/10/17 09:08 Dose: 5 mg Benztropine Mesylate (Cogentin) 1 mg PO BID CRISTINA Stop: 09/08/17 08:59 Last Admin: 07/10/17 09:21 Dose: 1 mg Calcium/Vitamin D (Oscal W/Vitamin D) 1 tab PO BID CRISTINA Stop: 09/08/17 08:59 Last Admin: 07/10/17 09:10 Dose: 1 tab Divalproex Sodium (Depakote Er) 500 mg PO Q12HR CRISTINA PRN Reason: Protocol Stop: 09/08/17 08:59 Last Admin: 07/10/17 09:07 Dose: 500 mg Docusate Sodium (Colace) 250 mg PO DAILY [facility] Stop: 09/08/17 08:59 Last Admin: 07/10/17 09:08 Dose: 250 mg Ceftriaxone Sodium 1 gm/ (Sodium Chloride) 50 mls @ 100 mls/hr IV Q24HR [facility] Stop: 09/08/17 20:59 Dextrose/Sodium Chloride (D5-0.9%Ns) 1,000 mls @ 80 mls/hr IV .[id number] [facility] Stop: 09/08/17 00:59 Last Admin: 07/10/17 03:32 Dose: 80 mls/hr Ipratropium [place] (Atrovent Neb 0.5mg/2.5ml) 0.5 mg IH Q2HRT PRN PRN Reason: Shortness of Breath or Wheeze Stop: 09/08/17 00:47 Levothyroxine Sodium (Synthroid) 0.088 mg PO QDAC [facility] Stop: 09/08/17 07:29 Last Admin: 07/10/17 09:12 Dose: Not Given Lorazepam (Ativan) 0.5 mg PO Q6H PRN; Protocol PRN Reason: Anxiety Stop: 09/08/17 00:46 Naproxen (Naprosyn) 500 mg PO TID PRN PRN Reason: Pain (Moderate) Stop: 09/08/17 00:46 Ondansetron HCl (Zofran) 4 mg IV Q8H PRN PRN Reason: Nausea / Vomiting Stop: 09/08/17 00:47 Trazodone HCl (Desyrel) 50 mg PO HS CRISTINA PRN Reason: Protocol Stop: 09/08/17 20:59 Internal Medicine Assmt/Plan - Assessment Assessment: Acute UTI Acute Dehydration Mild protein calorie malnutrition hypothyroidism Generalized weakness
--- NOTE | 2017-07-10 13:01 | History & Physical ---
ADMIT DATE: 07/10/2017 CHIEF COMPLAINT: Refusing care. HISTORY OF PRESENT ILLNESS: This is a 57-year-old female who is well known to me from [facility], who is now admitted to the med/surg unit due to increase of agitation, refusing medications at the nursing facility. For further management, the patient is now admitted. PAST MEDICAL HISTORY: Schizoaffective disorder, obesity, hypothyroidism. PAST SURGICAL HISTORY: Liposuction and 2 . ALLERGIES: TO FLAGYL. MEDICATIONS: Risperdal, trazodone, Synthroid, Colace, Tylenol. FAMILY HISTORY: Noncontributory. SOCIAL HISTORY: The patient is a skilled nursing resident and requiring 24-hour nursing care. REVIEW OF SYSTEMS: GENERAL: Denies any fevers, any chills, but complains of weakness. CARDIOVASCULAR: Denies chest pain. RESPIRATORY: Denies shortness of breath. GASTROINTESTINAL: Denies nausea, vomiting, abdominal pain. GENITOURINARY: Denies increased frequency or dysuria. NEUROLOGIC: No headaches, seizures or syncope. All other systems are reviewed and are negative. PHYSICAL EXAMINATION: GENERAL: This is a pleasant female, awake, alert, in no apparent distress. VITAL SIGNS: Temperature 97.5, heart rate 60, blood pressure 109/59, respiration 18, O2 95%. HEENT: Head; normocephalic, atraumatic. NECK: Supple. No mass. LUNGS: Clear bilaterally. ABDOMEN: Soft, nontender. LABORATORY RESULTS: WBC 6.7, H and H 11.6 and 35.1, platelet of 159. Sodium 132, potassium 4.0, chloride 106, BUN 21, creatinine 0.7. Urinalysis, the patient is positive UTI. ASSESSMENT: Acute urinary tract infection, acute dehydration, schizoaffective disorder, obesity, hypothyroidism. PLAN: Keep the patient on IV fluids for hydration. We will obtain urine culture. Start the patient on Rocephin 1 gram IV q. 24. IV fluids for hydration. To get follow up labs in the morning. We will continue to monitor this patient. [facility]# [id number]
[2017-07-10] MEDS ORDERED: Probiotic Screen MC PRN (14:53)
[2017-07-10 16:43] LABS: A1C % 5.4 % (4.0-6.0)
[2017-07-10] MEDS: cefTRIAXone 1 GM in Sodium Chloride 0.9% 50 ML IV SCH (20:17)
--- NOTE | 2017-07-11 00:34 | Consultation ---
DATE OF CONSULTATION: 07/10/2017 IDENTIFYING INFORMATION: She is a 57-year-old female. HISTORY OF PRESENT ILLNESS: This patient was transferred from [facility] to be admitted to [facility] because of refusing medication, acting agitated; however, the patient was found to have UT infection and when I talked to her, she believed that she is taking her medication. She is sleeping well, eating well. She was feeding herself. She reported that she admitted that she was not taking Depakote does not like it. She has been, however, agitated, unpredictable and impulsive at the [facility]. PAST PSYCHIATRIC HISTORY: Schizoaffective disorder, multiple prior hospitalization, needs to be conserved but not sure if she has a conservator, now looking for other senior care reports. She has no conservator, but yet when her previous admission apparently, she has some public guardian who send the letter on her regard does not want to be on medication, but that was not confirmed. MEDICAL HISTORY: The patient was found to have UT infection deferred to Dr. Sebastian. MEDICATIONS: The patient has been on Abilify 5 mg daily. FAMILY AND SOCIAL HISTORY: Noncontributory. The patient lives at the nursing facility. MENTAL STATUS EXAMINATION: The patient is appropriately dressed in hospital gown. She was alert, feeding herself, able to tell me the date, where she is, why she is here. She was very agitated at the senior care. She has not been refusing her medications. She denies any current intent to harm herself; however, she is unpredictable, impulsive, easy to get upset. She varies from being very calm to being very upset. Her long and short term was intact. Her insight and judgment are questionable. IMPRESSION: AXIS I: Schizoaffective disorder, bipolar type. MEDICAL DIAGNOSES: I defer to Dr. Sebastian, recommend continue Abilify, may transfer to [facility] when medically cleared. Thank you very much for allowing me to participate in the care of this most interesting lady. JOB# [id number]
[2017-07-11] MEDS: D5-0.9%NS 1,000 ML IV SCH ×2 (05:34→22:14)
[2017-07-11] MEDS: Levothyroxine 0.088 Mg Tab PO SCH (06:34)
[2017-07-11] MEDS: Lactobacillus Rhamnosus GG 15 Billion CFU CAP.SPRINK PO SCH (08:59)
[2017-07-11] MEDS: Calcium Carb/Vit D 500 mg/200 U Tab PO SCH ×2 (08:59→17:28)
[2017-07-11] MEDS: Multivitamin w/ Minerals Tab PO SCH (08:59)
--- NOTE | 2017-07-11 15:21 | Internal Medicine Prog Note ---
Internal Medicine Subjective - Subjective Patient seen and examined:: with staff, chart reviewed Patient is:: awake, verbal, interactive, in bed, agitated Patient Complaints of:: constipation Per staff patient has:: no adverse event, no episodes of fall, poor appetite, tolerating meds Internal Medicine Objective - Results Result Diagrams: 07/09/17 22:30 07/09/17 22:30 Recent Labs: Laboratory Last Values WBC 6.7 Th/cmm (4.8-10.8) 07/09/17: RBC 3.63 Mil/cmm (3.80-5.10) L 07/09/17: Hgb 11.6 gm/dL (12-16) L 07/09/17: Hct 35.1 % (41.0-60) L 07/09/17: MCV 96.9 fl (81-100) 07/09/17: MCH 32.1 pg (27.0-31.0) H 07/09/17: MCHC Differential 33.1 pg (28.0-36.0) 07/09/17: RDW 13.7 % (11.5-20.0) 07/09/17: Plt Count 159 Th/cmm (150-400) 07/09/17: MPV 9.3 fl 07/09/17: Neutrophils % 57.8 % (40.0-80.0) 07/09/17: Lymphocytes % 31.2 % (20.0-50.0) 07/09/17: Monocytes % 9.1 % (2.0-10.0) 07/09/17: Eosinophils % 1.5 % (0.0-5.0) 07/09/17: Basophils % 0.4 % (0.0-2.0) 07/09/17: Sodium 133 mEq/L (136-145) L 07/09/17: Potassium 4.0 mEq/L (3.5-5.1) 07/09/17: Chloride 106 mEq/L (98-107) 07/09/17: Carbon Dioxide 24.7 mEq/L (21.0-31.0) 03/15/18 22:30 Anion Gap 6.3 (7.0-16.0) L 07/09/17 22:30 BUN 21 mg/dL (7-25) 07/09/17 22:30 Creatinine 0.7 mg/dL (0.6-1.2) 07/09/17 22:30 Est GFR ( Amer) > 60.0 ml/min (>90) 07/09/17 22:30 Est GFR (Non-Af Amer) > 60.0 ml/min 07/09/17 22:30 BUN/Creatinine Ratio 30.0 07/09/17 22:30 Glucose 101 mg/dL (70-105) 07/09/17 22:30 Hemoglobin A1c % 5.4 % (4.0-6.0) 07/09/17 22:30 Calcium 8.8 mg/dL (8.6-10.3) 07/09/17 22:30 Total Bilirubin 0.6 mg/dL (0.3-1.0) 07/09/17 22:30 AST 11 U/L (13-39) L 07/09/17 22:30 ALT 15 U/L (7-52) 07/09/17 22:30 Alkaline Phosphatase 42 U/L (34-104) 07/09/17 22:30 Total Protein 5.9 gm/dL (6.0-8.3) L 07/09/17 22:30 Albumin 3.5 gm/dL (3.7-5.3) L 07/09/17 22:30 Globulin 2.4 gm/dL 07/09/17 22:30 Albumin/Globulin Ratio 1.5 (1.0-1.8) 07/09/17 22:30 Triglycerides 76 mg/dL (<150) 07/09/17 22:30 Cholesterol 169 mg/dL (<200) 07/09/17 22:30 LDL Cholesterol Direct 95 mg/dL (75-193) 07/09/17 22:30 HDL Cholesterol 44 mg/dL (23-92) 07/09/17 22:30 TSH 0.87 uIU/ml (0.34-5.60) 07/09/17 22:30 Urine Source CLEAN C 07/09/17 23:50 Urine Color YELLOW 07/09/17 23:50 Urine Clarity CLEAR (CLEAR) 07/09/17 23:50 Urine pH 6.5 (4.6 - 8.0) 07/09/17 23:50 Ur Specific [place] 1.015 (1.005-1.030) 07/09/17 23:50 Urine Protein NEGATIVE mg/dL (NEGATIVE) 07/09/17 23:50 Urine Glucose (UA) NEGATIVE mg/dL (NEGATIVE) 07/09/17 23:50 Urine Ketones NEGATIVE mg/dL (NEGATIVE) 07/09/17 23:50 Urine Blood NEGATIVE (NEGATIVE) 07/09/17 23:50 Urine Nitrate NEGATIVE (NEGATIVE) 07/09/17 23:50 Urine Bilirubin NEGATIVE (NEGATIVE) 07/09/17 23:50 Urine Urobilinogen 0.2 E.U./dL (0.2 - 1.0) 07/09/17 23:50 Ur Leukocyte Esterase MODERATE (NEGATIVE) H 07/09/17 23:50 Urine RBC 0-2 /hpf (0-5) 07/09/17 23:50 Urine WBC 10-25 /hpf (0-5) H 07/09/17 23:50 Ur Epithelial Cells MODERATE /lpf (FEW) 07/09/17 23:50 Urine Bacteria FEW /hpf (NONE SEEN) 07/09/17 23:50 RPR NONREACTIVE (NONREACTIVE) 07/09/17 22:30 - Physical Exam Vitals and I&O: Vital Signs Temp 98.2 F 07/11/17 08:18 Pulse 53 07/11/17 08:18 Resp 18 07/11/17 08:18 BP 120/51 07/11/17 08:18 Pulse Ox 100 07/11/17 08:18 Intake & Output 07/10/17 07/11/17 07/11/17 18:59 06:59 18:59 Intake Total 796 1050 Balance 796 1050 Weight (lbs) 65.771 kg 72.121 kg Intake: Intake, IV Amount 796 1050 D5-0.9%Ns 1,000 ml @ 80 796 1000 mls/hr IV .[id number] [facility] Rx #:[id number] cefTRIAXone 1 gm In 50 Sodium Chloride 0.9% 50 ml @ 100 mls/hr IV Q24HR [facility] Rx#:[id number] Other: Stool Characteristics Soft Formed Brown Active Medications: Current Medications Acetaminophen (Tylenol) 650 mg PO Q4H PRN PRN Reason: MILD Pain Or Fever above 101 Stop: 09/08/17 00:47 Acetaminophen/Hydrocodone Bitart ([place] 5mg/325mg) 1 tab PO Q4H PRN PRN Reason: Pain (Severe) Stop: 09/08/17 00:46 Al Hydrox/Mg Hydrox/Simethicone (Maalox) 30 ml PO Q6H PRN PRN Reason: Dyspepsia Stop: 09/08/17 00:47 Albuterol Sulfate (Albuterol 2.5mg/3ml Neb Ud) 2.5 mg HHN Q2HRT PRN PRN Reason: Shortness of Breath or Wheeze Stop: 09/08/17 00:47 Aripiprazole (Abilify) 10 mg PO DAILY [facility] PRN Reason: Protocol Stop: 09/09/17 12:41 Benztropine Mesylate (Cogentin) 1 mg PO BID [facility] Stop: 09/08/17 08:59 Last Admin: 07/11/17 08:59 Dose: 1 mg Calcium/Vitamin D (Oscal W/Vitamin D) 1 tab PO BID [facility] Stop: 09/08/17 08:59 Last Admin: 07/11/17 08:59 Dose: 1 tab Divalproex Sodium (Depakote Er) 500 mg PO Q12HR [facility] PRN Reason: Protocol Stop: 09/08/17 08:59 Last Admin: 07/11/17 09:00 Dose: Not Given Docusate Sodium (Colace) 250 mg PO DAILY [facility] Stop: 09/08/17 08:59 Last Admin: 07/11/17 09:00 Dose: 250 mg Ceftriaxone Sodium 1 gm/ (Sodium Chloride) 50 mls @ 100 mls/hr IV Q24HR [facility] Stop: 09/08/17 20:59 Last Infusion: 07/10/17 23:00 Dose: Infused Dextrose/Sodium Chloride (D5-0.9%Ns) 1,000 mls @ 80 mls/hr IV .[id number] [facility] Stop: 09/08/17 00:59 Last Admin: 07/11/17 05:34 Dose: 80 mls/hr Ipratropium [place] (Atrovent Neb 0.5mg/2.5ml) 0.5 mg IH Q2HRT PRN PRN Reason: Shortness of Breath or Wheeze Stop: 09/08/17 00:47 Lactobacillus Rhamnosus (Culturelle 15b) 1 each PO DAILY [facility] Stop: 09/09/17 08:59 Last Admin: 07/11/17 08:59 Dose: 1 each Levothyroxine Sodium (Synthroid) 0.088 mg PO QDAC [facility] Stop: 09/08/17 07:29 Last Admin: 07/11/17 06:34 Dose: 0.088 mg Lorazepam (Ativan) 0.5 mg PO Q6H PRN; Protocol PRN Reason: Anxiety Stop: 09/08/17 00:46 Miscellaneous (Probiotic Screen) 1 ea MC PRN PRN PRN Reason: PROTOCOL Stop: 09/08/17 14:52 Naproxen (Naprosyn) 500 mg PO TID PRN PRN Reason: Pain (Moderate) Stop: 09/08/17 00:46 Ondansetron HCl (Zofran) 4 mg IV Q8H PRN PRN Reason: Nausea / Vomiting Stop: 09/08/17 00:47 Trazodone HCl (Desyrel) 50 mg PO HS [facility] PRN Reason: Protocol Stop: 09/08/17 20:59 Last Admin: 07/10/17 20:21 Dose: 50 mg General: demented HEENT: NC/AT, PERRLA Neck: Supple, No thyromegaly Lungs: CTAB Cardiovascular: RRR, Normal S1, Normal S2 Abdomen: soft, non-tender, globular, positive bowel sound Extremities: excoriation Neurological: no change, disorganized Internal Medicine Assmt/Plan - Assessment Assessment: - Assessment Assessment: Acute UTI Acute Dehydration Mild protein calorie malnutrition hypothyroidism Generalized weakness - Assessment - Plan Plan: cont on iv abx cont on iv hydration will correct lytes dw dr dawn loo rn
[2017-07-11] MEDS: cefTRIAXone 1 GM in Sodium Chloride 0.9% 50 ML IV SCH (21:52)
--- NOTE | 2017-07-11 22:37 | Progress Notes ---
DATE: 07/11/2017 Case was discussed with staff of patient, reviewed records. The patient has been refusing her Depakote, but she is taking the Abilify. Continues to have poor insight. Continues to be unable to make safe plan for self-care. She report that Depakote make her have a headache, so I will be increasing her Abilify dose to 10 mg a day. Thank you very much for allowing me to participate in the care of this most interesting lady. The patient can go to [facility] when medically cleared. JOB# [id number]
[2017-07-11] MEDS: Hydrocodone/APAP 5mg/325mg Tab PO PRN (23:18)
[2017-07-12 06:59] LABS: % BASOPHILS 0.5 % (0.0-2.0); % EOSINOPHILS 1.9 % (0.0-5.0); % LYMPHOCYTES 36.3 % (20.0-50.0); % MONOCYTES 9.3 % (2.0-10.0); EOSINOPHILE ABSOLUTE 0.1 Th/cmm (0.1-0.4); HEMATOCRIT 33.3 % (41.0-60); HEMOGLOBIN 11.6 gm/dL (12-16); LYMPHOCYTE ABSOLUTE 2.5 Th/cmm (1.5-3.0); MEAN CELL VOLUME 97.2 fl (81-100); MEAN CORPUSCULAR HEMOGLOBIN 33.8 pg (27.0-31.0); MEAN CORPUSCULAR HGB CONC 34.8 pg (28.0-36.0); MONOCYTE ABSOLUTE 0.7 Th/cmm (0.3-1.0); NEUTROPHILE ABSOLUTE 3.7 Th/cmm (1.8-8.0); PLATELET COUNT 153 Th/cmm (150-400); RED BLOOD COUNT 3.42 Mil/cmm (3.80-5.10); RED CELL DISTRIBUTION WIDTH 13.5 % (11.5-20.0)
[2017-07-12 07:07] LABS: ANION GAP 7.2 (7.0-16.0); BUN - UREA NITROGEN 15 mg/dL (7-25); CALCIUM SERUM 8.4 mg/dL (8.6-10.3); CARBON DIOXIDE 23.6 mEq/L (21.0-31.0); CHLORIDE 111 mEq/L (98-107); CREATININE - SERUM 0.6 mg/dL (0.6-1.2); GFR AFRICAN-AMERICAN > 60.0 ml/min (>90); GFR NON AFRICAN-AMERICAN > 60.0 ml/min; GLUCOSE 94 mg/dL (70-105); MAGNESIUM 1.6 mg/dL (1.9-2.7); POTASSIUM SERUM 3.8 mEq/L (3.5-5.1); SODIUM SERUM 138 mEq/L (136-145)
[2017-07-12] MEDS: D5-0.9%NS 1,000 ML IV SCH ×2 (07:21→21:41)
[2017-07-12] MEDS: Levothyroxine 0.088 Mg Tab PO SCH (07:56)
[2017-07-12] MEDS: Multivitamin w/ Minerals Tab PO SCH (09:28)
[2017-07-12] MEDS: Calcium Carb/Vit D 500 mg/200 U Tab PO SCH ×2 (09:30→16:18)
[2017-07-12] MEDS: Lactobacillus Rhamnosus GG 15 Billion CFU CAP.SPRINK PO SCH (09:31)
[2017-07-12] MEDS ORDERED: Mag Sulfate 2gm/50mL Premix 2 GM/50 ML BAG IV ONE (10:25)
--- NOTE | 2017-07-12 10:26 | Internal Medicine Prog Note ---
Internal Medicine Subjective - Subjective Patient seen and examined:: with staff, chart reviewed Patient is:: awake, verbal, interactive, in bed, agitated Patient Complaints of:: constipation Per staff patient has:: no adverse event, no episodes of fall, poor appetite, tolerating meds Internal Medicine Objective - Results Result Diagrams: 07/12/17 05:50 07/12/17 05:50 Recent Labs: Laboratory Last Values WBC 7.0 Th/cmm (4.8-10.8) 07/12/17 05:50 RBC 3.42 Mil/cmm (3.80-5.10) L 07/12/17 05:50 Hgb 11.6 gm/dL (12-16) L 07/12/17 05:50 Hct 33.3 % (41.0-60) L 07/12/17 05:50 MCV 97.2 fl (81-100) 07/12/17 05:50 MCH 33.8 pg (27.0-31.0) H 07/12/17 05:50 MCHC Differential 34.8 pg (28.0-36.0) 07/12/17 05:50 RDW 13.5 % (11.5-20.0) 07/12/17 05:50 Plt Count 153 Th/cmm (150-400) 07/12/17 05:50 MPV 11.0 fl 07/12/17 05:50 Neutrophils % 52.0 % (40.0-80.0) 07/12/17 05:50 Lymphocytes % 36.3 % (20.0-50.0) 07/12/17 05:50 Monocytes % 9.3 % (2.0-10.0) 07/12/17 05:50 Eosinophils % 1.9 % (0.0-5.0) 07/12/17 05:50 Basophils % 0.5 % (0.0-2.0) 07/12/17 05:50 Sodium 138 mEq/L (136-145) 07/12/17 05:50 Potassium 3.8 mEq/L (3.5-5.1) 07/12/17 05:50 Chloride 111 mEq/L (98-107) H 07/12/17 05:50 Carbon Dioxide 23.6 mEq/L (21.0-31.0) 07/12/17 05:50 Anion Gap 7.2 (7.0-16.0) 07/12/17 05:50 BUN 15 mg/dL (7-25) 07/12/17 05:50 Creatinine 0.6 mg/dL (0.6-1.2) 07/12/17 05:50 Est GFR ( Amer) > 60.0 ml/min (>90) 07/12/17 05:50 Est GFR (Non-Af Amer) > 60.0 ml/min 07/12/17 05:50 BUN/Creatinine Ratio 25.0 07/12/17 05:50 Glucose 94 mg/dL (70-105) 07/12/17 05:50 Hemoglobin A1c % 5.4 % (4.0-6.0) 07/09/17 22:30 Calcium 8.4 mg/dL (8.6-10.3) L 07/12/17 05:50 Magnesium 1.6 mg/dL (1.9-2.7) L 07/12/17 05:50 Total Bilirubin 0.6 mg/dL (0.3-1.0) 07/09/17 22:30 AST 11 U/L (13-39) L 07/09/17 22:30 ALT 15 U/L (7-52) 07/09/17 22:30 Alkaline Phosphatase 42 U/L (34-104) 07/09/17 22:30 Total Protein 5.9 gm/dL (6.0-8.3) L 07/09/17 22:30 Albumin 3.5 gm/dL (3.7-5.3) L 07/09/17 22:30 Globulin 2.4 gm/dL 07/09/17 22:30 Albumin/Globulin Ratio 1.5 (1.0-1.8) 07/09/17 22:30 Triglycerides 76 mg/dL (<150) 07/09/17 22:30 Cholesterol 169 mg/dL (<200) 07/09/17 22:30 LDL Cholesterol Direct 95 mg/dL (75-193) 07/09/17 22:30 HDL Cholesterol 44 mg/dL (23-92) 07/09/17 22:30 TSH 0.87 uIU/ml (0.34-5.60) 07/09/17 22:30 Urine Source CLEAN C 07/09/17 23:50 Urine Color YELLOW 07/09/17 23:50 Urine Clarity CLEAR (CLEAR) 07/09/17 23:50 Urine pH 6.5 (4.6 - 8.0) 07/09/17 23:50 Ur Specific [place] 1.015 (1.005-1.030) 07/09/17 23:50 Urine Protein NEGATIVE mg/dL (NEGATIVE) 07/09/17 23:50 Urine Glucose (UA) NEGATIVE mg/dL (NEGATIVE) 07/09/17 23:50 Urine Ketones NEGATIVE mg/dL (NEGATIVE) 07/09/17 23:50 Urine Blood NEGATIVE (NEGATIVE) 07/09/17 23:50 Urine Nitrate NEGATIVE (NEGATIVE) 07/09/17 23:50 Urine Bilirubin NEGATIVE (NEGATIVE) 07/09/17 23:50 Urine Urobilinogen 0.2 E.U./dL (0.2 - 1.0) 07/09/17 23:50 Ur Leukocyte Esterase MODERATE (NEGATIVE) H 07/09/17 23:50 Urine RBC 0-2 /hpf (0-5) 07/09/17 23:50 Urine WBC 10-25 /hpf (0-5) H 07/09/17 23:50 Ur Epithelial Cells MODERATE /lpf (FEW) 07/09/17 23:50 Urine Bacteria FEW /hpf (NONE SEEN) 07/09/17 23:50 RPR NONREACTIVE (NONREACTIVE) 07/09/17 22:30 - Physical Exam Vitals and I&O: Vital Signs Temp 97.3 F 07/12/17 07:41 Pulse 60 07/12/17 07:41 Resp 17 07/12/17 07:41 BP 138/63 07/12/17 07:41 Pulse Ox 98 07/12/17 07:41 Intake & Output 07/11/17 07/12/17 07/12/17 18:59 06:59 18:59 Intake Total 1600 820 729.333 Output Total 4 Balance 1600 816 729.333 Weight (lbs) 72.121 kg 74.752 kg Intake: Intake, IV Amount 1000 729.333 D5-0.9%Ns 1,000 ml @ 80 1000 729.333 mls/hr IV .[id number] [facility] Rx #:[id number] Oral 600 820 Output: Urine 4 Other: # Voids 3 4 # Bowel Movements 1 0 Stool Characteristics Soft Formed Brown Active Medications: Current Medications Acetaminophen (Tylenol) 650 mg PO Q4H PRN PRN Reason: MILD Pain Or Fever above 101 Stop: 09/08/17 00:47 Acetaminophen/Hydrocodone Bitart ([place] 5mg/325mg) 1 tab PO Q4H PRN PRN Reason: Pain (Severe) Stop: 09/08/17 00:46 Last Admin: 07/11/17 23:18 Dose: 1 tab Al Hydrox/Mg Hydrox/Simethicone (Maalox) 30 ml PO Q6H PRN PRN Reason: Dyspepsia Stop: 09/08/17 00:47 Albuterol Sulfate (Albuterol 2.5mg/3ml Neb Ud) 2.5 mg HHN Q2HRT PRN PRN Reason: Shortness of Breath or Wheeze Stop: 09/08/17 00:47 Aripiprazole (Abilify) 10 mg PO DAILY [facility] PRN Reason: Protocol Stop: 09/09/17 12:41 Last Admin: 07/12/17 09:29 Dose: 10 mg Benztropine Mesylate (Cogentin) 1 mg PO BID [facility] Stop: 09/08/17 08:59 Last Admin: 07/12/17 09:28 Dose: 1 mg Calcium/Vitamin D (Oscal W/Vitamin D) 1 tab PO BID [facility] Stop: 09/08/17 08:59 Last Admin: 07/12/17 09:30 Dose: 1 tab Divalproex Sodium (Depakote Er) 500 mg PO Q12HR [facility] PRN Reason: Protocol Stop: 09/08/17 08:59 Last Admin: 07/12/17 09:33 Dose: 500 mg Docusate Sodium (Colace) 250 mg PO DAILY [facility] Stop: 09/08/17 08:59 Last Admin: 07/12/17 09:28 Dose: 250 mg Ceftriaxone Sodium 1 gm/ (Sodium Chloride) 50 mls @ 100 mls/hr IV Q24HR [facility] Stop: 09/08/17 20:59 Last Admin: 07/11/17 21:52 Dose: 100 mls/hr Dextrose/Sodium Chloride (D5-0.9%Ns) 1,000 mls @ 80 mls/hr IV .[id number] [facility] Stop: 09/08/17 00:59 Last Admin: 07/12/17 07:21 Dose: 80 mls/hr Ipratropium [place] (Atrovent Neb 0.5mg/2.5ml) 0.5 mg IH Q2HRT PRN PRN Reason: Shortness of Breath or Wheeze Stop: 09/08/17 00:47 Lactobacillus Rhamnosus (Culturelle 15b) 1 each PO DAILY [facility] Stop: 09/09/17 08:59 Last Admin: 07/12/17 09:31 Dose: 1 each Levothyroxine Sodium (Synthroid) 0.088 mg PO QDAC [facility] Stop: 09/08/17 07:29 Last Admin: 07/12/17 07:56 Dose: 0.088 mg Lorazepam (Ativan) 0.5 mg PO Q6H PRN; Protocol PRN Reason: Anxiety Stop: 09/08/17 00:46 Miscellaneous (Probiotic Screen) 1 ea MC PRN PRN PRN Reason: PROTOCOL Stop: 09/08/17 14:52 Naproxen (Naprosyn) 500 mg PO TID PRN PRN Reason: Pain (Moderate) Stop: 09/08/17 00:46 Ondansetron HCl (Zofran) 4 mg IV Q8H PRN PRN Reason: Nausea / Vomiting Stop: 09/08/17 00:47 Trazodone HCl (Desyrel) 50 mg PO HS [facility] PRN Reason: Protocol Stop: 09/08/17 20:59 Last Admin: 07/11/17 21:43 Dose: 50 mg General: demented HEENT: NC/AT, PERRLA Neck: Supple, No thyromegaly Lungs: CTAB Cardiovascular: RRR, Normal S1, Normal S2 Abdomen: soft, non-tender, globular, positive bowel sound Extremities: excoriation Neurological: no change, disorganized Internal Medicine Assmt/Plan - Assessment Assessment: - Assessment Assessment: Acute UTI Acute Dehydration Mild protein calorie malnutrition hypothyroidism Generalized weakness - Assessment - Plan Plan: cont on iv abx cont on iv hydration will correct lytes cinda loo rn
[2017-07-12] MEDS: Hydrocodone/APAP 5mg/325mg Tab PO PRN ×3 (13:39→23:15)
[2017-07-12] MEDS: cefTRIAXone 1 GM in Sodium Chloride 0.9% 50 ML IV SCH (21:41)
--- NOTE | 2017-07-13 03:13 | Progress Notes ---
DATE: 07/12/2017 Case discussed with staff of the patient, reviewed records. The patient has been refusing to take Depakote ____ have a headache and dizziness. She has only taken it for a while and I did increase Abilify dose yesterday in the preparation to taken off Depakote. She has not been taking it, so we can taper it. She is sleeping well, eating well. She is able to carry on conversation well with no side effects, no sedation, no nausea, no extrapyramidal symptoms and we will continue outpatient group therapy, milieu therapy, and adjust medication as needed. JOB# [id number]
[2017-07-13] MEDS: Levothyroxine 0.088 Mg Tab PO SCH (07:38)
[2017-07-13] MEDS: D5-0.9%NS 1,000 ML IV SCH (07:40)
[2017-07-13] MEDS: Multivitamin w/ Minerals Tab PO SCH (09:00)
[2017-07-13] MEDS: Calcium Carb/Vit D 500 mg/200 U Tab PO SCH ×2 (09:00→16:05)
[2017-07-13] MEDS: Lactobacillus Rhamnosus GG 15 Billion CFU CAP.SPRINK PO SCH (09:00)
--- NOTE | 2017-07-13 11:23 | Internal Medicine Prog Note ---
Internal Medicine Subjective - Subjective Service Date: 07/13/17 (c/o allergies ) Patient is:: awake, verbal, interactive, in bed, agitated Per staff patient has:: no adverse event, no episodes of fall, poor appetite, tolerating meds Internal Medicine Objective - Results Result Diagrams: 07/12/17 05:50 07/12/17 05:50 Recent Labs: Laboratory Last Values WBC 7.0 Th/cmm (4.8-10.8) 07/12/17 05:50 RBC 3.42 Mil/cmm (3.80-5.10) L 07/12/17 05:50 Hgb 11.6 gm/dL (12-16) L 07/12/17 05:50 Hct 33.3 % (41.0-60) L 07/12/17 05:50 MCV 97.2 fl (81-100) 07/12/17 05:50 MCH 33.8 pg (27.0-31.0) H 07/12/17 05:50 MCHC Differential 34.8 pg (28.0-36.0) 07/12/17 05:50 RDW 13.5 % (11.5-20.0) 07/12/17 05:50 Plt Count 153 Th/cmm (150-400) 07/12/17 05:50 MPV 11.0 fl 07/12/17 05:50 Neutrophils % 52.0 % (40.0-80.0) 07/12/17 05:50 Lymphocytes % 36.3 % (20.0-50.0) 07/12/17 05:50 Monocytes % 9.3 % (2.0-10.0) 07/12/17 05:50 Eosinophils % 1.9 % (0.0-5.0) 07/12/17 05:50 Basophils % 0.5 % (0.0-2.0) 07/12/17 05:50 Sodium 138 mEq/L (136-145) 07/12/17 05:50 Potassium 3.8 mEq/L (3.5-5.1) 07/12/17 05:50 Chloride 111 mEq/L (98-107) H 07/12/17 05:50 Carbon Dioxide 23.6 mEq/L (21.0-31.0) 07/12/17 05:50 Anion Gap 7.2 (7.0-16.0) 07/12/17 05:50 BUN 15 mg/dL (7-25) 07/12/17 05:50 Creatinine 0.6 mg/dL (0.6-1.2) 07/12/17 05:50 Est GFR ( Amer) > 60.0 ml/min (>90) 07/12/17 05:50 Est GFR (Non-Af Amer) > 60.0 ml/min 07/12/17 05:50 BUN/Creatinine Ratio 25.0 07/12/17 05:50 Glucose 94 mg/dL (70-105) 07/12/17 05:50 POC Glucose 115 MG/DL (70 - 105) H 07/12/17 22:34 Hemoglobin A1c % 5.4 % (4.0-6.0) 07/09/17 22:30 Calcium 8.4 mg/dL (8.6-10.3) L 07/12/17 05:50 Magnesium 1.6 mg/dL (1.9-2.7) L 07/12/17 05:50 Total Bilirubin 0.6 mg/dL (0.3-1.0) 07/09/17 22:30 AST 11 U/L (13-39) L 07/09/17 22:30 ALT 15 U/L (7-52) 07/09/17 22:30 Alkaline Phosphatase 42 U/L (34-104) 07/09/17 22:30 Total Protein 5.9 gm/dL (6.0-8.3) L 07/09/17 22:30 Albumin 3.5 gm/dL (3.7-5.3) L 07/09/17 22:30 Globulin 2.4 gm/dL 07/09/17 22:30 Albumin/Globulin Ratio 1.5 (1.0-1.8) 07/09/17 22:30 Triglycerides 76 mg/dL (<150) 07/09/17 22:30 Cholesterol 169 mg/dL (<200) 07/09/17 22:30 LDL Cholesterol Direct 95 mg/dL (75-193) 07/09/17 22:30 HDL Cholesterol 44 mg/dL (23-92) 07/09/17 22:30 TSH 0.87 uIU/ml (0.34-5.60) 07/09/17 22:30 Urine Source CLEAN C 07/09/17 23:50 Urine Color YELLOW 07/09/17 23:50 Urine Clarity CLEAR (CLEAR) 07/09/17 23:50 Urine pH 6.5 (4.6 - 8.0) 07/09/17 23:50 Ur Specific [place] 1.015 (1.005-1.030) 07/09/17 23:50 Urine Protein NEGATIVE mg/dL (NEGATIVE) 07/09/17 23:50 Urine Glucose (UA) NEGATIVE mg/dL (NEGATIVE) 07/09/17 23:50 Urine Ketones NEGATIVE mg/dL (NEGATIVE) 07/09/17 23:50 Urine Blood NEGATIVE (NEGATIVE) 07/09/17 23:50 Urine Nitrate NEGATIVE (NEGATIVE) 07/09/17 23:50 Urine Bilirubin NEGATIVE (NEGATIVE) 07/09/17 23:50 Urine Urobilinogen 0.2 E.U./dL (0.2 - 1.0) 07/09/17 23:50 Ur Leukocyte Esterase MODERATE (NEGATIVE) H 07/09/17 23:50 Urine RBC 0-2 /hpf (0-5) 07/09/17 23:50 Urine WBC 10-25 /hpf (0-5) H 07/09/17 23:50 Ur Epithelial Cells MODERATE /lpf (FEW) 07/09/17 23:50 Urine Bacteria FEW /hpf (NONE SEEN) 07/09/17 23:50 RPR NONREACTIVE (NONREACTIVE) 07/09/17 22:30 - Physical Exam Vitals and I&O: Vital Signs Temp 97.7 F 07/13/17 07:31 Pulse 67 07/13/17 08:01 Resp 18 07/13/17 08:02 BP 129/108 07/13/17 07:31 Pulse Ox 95 07/13/17 08:01 Intake & Output 07/12/17 07/13/17 07/13/17 18:59 06:59 18:59 Intake Total 3617.631 3909 798.667 Balance 2423.133 5032 798.667 Weight (lbs) 164 lb 12.8 oz 164 lb Intake: Intake, IV Amount 038.877 5680 798.667 D5-0.9%Ns 1,000 ml @ 80 804.082 6220 798.667 mls/hr IV .[id number] [facility] Rx #:[id number] Oral 600 500 Other: # Voids 5 4 # Bowel Movements 0 1 Active Medications: Current Medications Acetaminophen (Tylenol) 650 mg PO Q4H PRN PRN Reason: MILD Pain Or Fever above 101 Stop: 09/08/17 00:47 Acetaminophen/Hydrocodone Bitart ([place] 5mg/325mg) 1 tab PO Q4H PRN PRN Reason: Pain (Severe) Stop: 09/08/17 00:46 Last Admin: 07/12/17 23:15 Dose: 1 tab Al Hydrox/Mg Hydrox/Simethicone (Maalox) 30 ml PO Q6H PRN PRN Reason: Dyspepsia Stop: 09/08/17 00:47 Albuterol Sulfate (Albuterol 2.5mg/3ml Neb Ud) 2.5 mg HHN Q2HRT PRN PRN Reason: Shortness of Breath or Wheeze Stop: 09/08/17 00:47 Aripiprazole (Abilify) 10 mg PO DAILY CRISTINA PRN Reason: Protocol Stop: 09/09/17 12:41 Last Admin: 07/13/17 09:00 Dose: 10 mg Benztropine Mesylate (Cogentin) 1 mg PO BID [facility] Stop: 09/08/17 08:59 Last Admin: 07/13/17 09:00 Dose: 1 mg Calcium/Vitamin D (Oscal W/Vitamin D) 1 tab PO BID [facility] Stop: 09/08/17 08:59 Last Admin: 07/13/17 09:00 Dose: 1 tab Docusate Sodium (Colace) 250 mg PO DAILY [facility] Stop: 09/08/17 08:59 Last Admin: 07/13/17 09:00 Dose: 250 mg Ceftriaxone Sodium 1 gm/ (Sodium Chloride) 50 mls @ 100 mls/hr IV Q24HR [facility] Stop: 09/08/17 20:59 Last Admin: 07/12/17 21:41 Dose: 100 mls/hr Dextrose/Sodium Chloride (D5-0.9%Ns) 1,000 mls @ 80 mls/hr IV .[id number] [facility] Stop: 09/08/17 00:59 Last Admin: 07/13/17 07:40 Dose: 80 mls/hr Ipratropium [place] (Atrovent Neb 0.5mg/2.5ml) 0.5 mg IH Q2HRT PRN PRN Reason: Shortness of Breath or Wheeze Stop: 09/08/17 00:47 Lactobacillus Rhamnosus (Culturelle 15b) 1 each PO DAILY CRISTINA Stop: 09/09/17 08:59 Last Admin: 07/13/17 09:00 Dose: 1 each Levothyroxine Sodium (Synthroid) 0.088 mg PO QDAC [facility]STINA Stop: 09/08/17 07:29 Last Admin: 07/13/17 07:38 Dose: 0.088 mg Lorazepam (Ativan) 0.5 mg PO Q6H PRN; Protocol PRN Reason: Anxiety Stop: 09/08/17 00:46 Last Admin: 07/12/17 21:38 Dose: 0.5 mg Miscellaneous (Probiotic Screen) 1 ea MC PRN PRN PRN Reason: PROTOCOL Stop: 09/08/17 14:52 Naproxen (Naprosyn) 500 mg PO TID PRN PRN Reason: Pain (Moderate) Stop: 09/08/17 00:46 Ondansetron HCl (Zofran) 4 mg IV Q8H PRN PRN Reason: Nausea / Vomiting Stop: 09/08/17 00:47 Trazodone HCl (Desyrel) 50 mg PO HS CRISTINA PRN Reason: Protocol Stop: 09/08/17 20:59 Last Admin: 07/12/17 21:38 Dose: 50 mg General: demented HEENT: NC/AT, PERRLA Neck: Supple, No thyromegaly Lungs: CTAB Cardiovascular: RRR, Normal S1, Normal S2 Abdomen: soft, non-tender, globular, positive bowel sound Extremities: excoriation Neurological: no change, disorganized Internal Medicine Assmt/Plan - Assessment Assessment: Acute UTI Acute Dehydration Mild protein calorie malnutrition hypothyroidism Generalized weakness - Plan Plan: continue ivf for hydration ivabx cbc/bmp in am continue current plan of care
--- NOTE | 2017-07-13 23:03 | Progress Notes ---
DATE: 07/13/2017 Case was discussed with staff of the patient. The patient so far reported the higher dose of Abilify caused her problems. She is sleeping better, eating better. I took her of Depakote and I am planning to put her on Trileptal. I will be decreasing the Abilify dose to 7.5 mg at bedtime to help decrease her, she said it makes her restless and no other side effects, I will be initiating Trileptal on her and discussed side effect and we will continue outpatient group therapy, milieu therapy, adjust medication as needed. JOB# [id number]
== END 2017-07-13 17:58 | disposition home or self-care (01) | DRG 690 ==
LOC: ER 21:52 → MSI 07-10 01:30
PROVIDERS: ADMIT Internal Medicine; ATTEND Internal Medicine
DX: N39.0 Urinary tract infection, site not specified (principal); E44.1 Mild protein-calorie malnutrition; E86.0 Dehydration; Z53.29 Procedure and treatment not carried out because of patient's decision for other reasons; F25.0 Schizoaffective disorder, bipolar type; E03.9 Hypothyroidism, unspecified; E66.9 Obesity, unspecified; Z68.28 Body mass index [BMI] 28.0-28.9, adult; Z79.899 Other long term (current) drug therapy
CPT/HCPCS: 36415-UA; 80048-TC; 80053-TC; 80061-TC; 81001-TC; 81003-TC; 82948-90; 83036-90; 83735-TC; 84443-TC; 85025-TC; 86592-TC; 87086-90; 93005; 94760; J0696; J3475; J7030; J7042; Z7610